=== PATIENT | male | born 1980 | race Hispanic/Latino ===

== ENCOUNTER 2024-07-20 09:35 | Inpatient (IN) | payer BC, OTHER ==
[~2024-07-20] VITALS: Ht 170.2 cm; Wt 87.2 kg
[~2024-07-20 09:35] MED LIST: ASPI-449 PO; ATOR40TA69 PO; LISI20TA24 PO; MECO10005 PO; METF-446 PO; METO-391 PO; PRAS10TA6 PO
[2024-07-20 10:58] LABS: BASOPHILS # (AUTO) 0.03 K/uL (0.00-0.20); BASOPHILS % (AUTO) 0.3 % (0.0-5.0); EOSINOPHILS % (AUTO) 0.9 % (0.0-8.0); HEMATOCRIT 37.2 % (42-54); LYMPHOCYTES # (AUTO) 0.5 K/uL (1.0-4.8); LYMPHOCYTES % (AUTO) 3.8 % (21.0-51.0); MEAN CORPUSCULAR HGB CONC 35.5 g/dL (32.0-36.0); MEAN CORPUSCULAR VOLUME 81.8 fL (79-99); MONOCYTES # (AUTO) 0.8 K/uL (0.1-1.0); NEUTROPHILS # (AUTO) 9.9 K/uL (1.8-7.7); NEUTROPHILS % (AUTO) 84.6 % (40.0-77.0); PLATELET COUNT (AUTO) 73 K/uL (130-400); RED BLOOD CELL COUNT(AUTO) 4.55 MIL/uL (4.50-6.20); RED CELL DISTRIBUTION WIDTH 11.3 % (11.0-15.5); WHITE BLOOD COUNT (AUTO) 11.7 K/uL (4.8-10.8)
[2024-07-20 11:25] LABS: ALBUMIN 2.8 g/dL (3.5-5.0); BILIRUBIN,DIRECT 4.7 mg/dL (0.0-0.3); BILIRUBIN,TOTAL 5.9 mg/dL (0.2-1.0); CREATININE 1.2 mg/dL (0.5-1.3); POTASSIUM 3.6 mmol/L (3.5-5.1); TOTAL PROTEIN, SERUM 6.5 g/dL (6.0-8.3)
--- NOTE | 2024-07-20 11:30 | ERN ---
General Chief Complaint: Fever Stated Complaint: FEVER Time Seen by MD: 10:00 Time Seen by Midlevel: 10:00 Source: patient History of Present Illness Initial Comments This is a 44-year-old male with a past medical history of type 2 diabetes and hypertension presenting for evaluation of intermittent fevers that have been ongoing for the last six days. Patient states his symptoms started after eating raw oysters. He has been taking Motrin 800 mg daily for his fever. Additionally he has noticed that his eyes have become yellow. He reports mild right upper quadrant abdominal pain with associated nausea but no vomiting. According to , patient is an alcoholic. She states that he drinks one bottle of Tequila a day. Allergies: Coded Allergies: No Known Allergies (Unverified Allergy, Unknown, 08/31/22) Home Meds Active Scripts Mecobalamin (B12 Active) 1,000 Mcg Tab.chew, 1000 MCG PO DAILY, #90 TAB.CHEW 3 Refills Prov:VAL FEILZ MD 09/02/22 Atorvastatin Calcium (LIPITOR) 40 Mg Tablet, 40 MG PO HS for 90 Days, #90 TAB 3 Refills Prov:VAL FELIZ MD 09/02/22 Prasugrel HCl (Effient) 10 Mg Tablet, 10 MG PO DAILY for 90 Days, #90 TAB 3 Refills Prov:VAL FELIZ MD 09/02/22 Aspirin (Adult Low Dose Aspirin EC) 81 Mg Tablet.dr, 81 MG PO DAILY for 100 Days, #100 TAB 3 Refills Prov:VAL FELIZ MD 09/02/22 Metoprolol Succinate (Metoprolol Succinate) 50 Mg Tab.er.24h, 50 MG PO DAILY, #90 TAB 3 Refills Prov:VAL FELIZ MD 09/02/22 Lisinopril (Lisinopril) 20 Mg Tablet, 20 MG PO DAILY, #90 TAB 3 Refills Prov:VAL FELIZ MD 09/02/22 Reported Medications Metformin HCl (Metformin HCl) 1,000 Mg Tablet, 1000 MG PO BID, TAB 09/01/22 Past Medical History Past Medical History: Diabetes-Type II, High Cholesterol, Hypertension, [place] Past Surgical History: Bariatric Surgery Social History Social History: ETOH ROS Dictation CONSTITUTIONAL: Negative except for HPI HEAD/FACE: Negative except for HPI EENT: Negative except for HPI RESPIRATORY: Negative except for HPI GASTROINTESTINAL/ABDOMINAL: Negative except for HPI GENITOURINARY: Negative except for HPI MUSCULOSKELETAL: Negative except for HPI INTEGUMENTARY: Negative except for HPI NEUROLOGICAL/PSYCH: Negative except for HPI HEMATOLOGIC/LYMPHATIC: Negative except for HPI All Systems Negative, Except as noted above. 13 point review of systems assessed and all negative except for above. Physical Exam Physical Exam Dictation Vital Signs reviewed General Appearance: Alert, oriented x 3, pale, ill-appearing Head and Face: non-traumatic. Eyes: PERRL, scleral icterus bilaterally Ears: Pinnas intact and no signs of trauma or erythema ear canals clear and no discharge TM no erythema Nose: No discharge, no bleeding. Oropharynx: Mouth normal, tongue pink, pharynx clear,no erythema, tonsils no exudates, no abscesses noted, mucous membrane moist Neck: Supple, non-tender, no thyromegaly, no masses, no JVD, no bruits Breast:Deferred Chest:No tenderness, no crepitus, no paradoxical movement, no retractions Lungs:Clear, well-ventilated, symmetric, no rales, no wheezing, no rhonchi, no stridor, good breath sounds bilaterally Heart: Regular rate, regular rhythm, no murmur, no gallops Vascular: no peripheral edema, Abdomen: Soft, positive bowel sounds, nondistended, no guarding, Right upper quadrant abdominal tenderness, no rebound, no masses no hepatomegaly, no splenomegaly, no Delong's sign, no hernias. Rectal: Deferred Genital: Deferred Neurological: Normal speech, motor function intact, sensory function intact Musculoskeletal: Neck nontender, full range of motion, back nontender, full range of motion, Extremities: nontender, full range of motion Skin: Color pink, dry, no turgor, no rash, no lacerations, no abrasions, no contusions. Lymphatic: Deferred Results Laboratory and Microbiology Lab and Micro Result Laboratory Tests Test 07/20/24 10:46 07/20/24 11:51 White Blood Count 11.7 K/uL (4.8-10.8) H Red Blood Count 4.55 MIL/uL (4.50-6.20) Hemoglobin 13.2 g/dL (14.0-18.0) L Hematocrit 37.2 % (42-54) L Mean Corpuscular Volume 81.8 fL (79-99) Mean Corpuscular Hemoglobin 29.0 pg (27.0-33.0) Mean Corpuscular Hemoglobin Concent 35.5 g/dL (32.0-36.0) Red Cell Distribution Width 11.3 % (11.0-15.5) Platelet Count 73 K/uL (130-400) L Mean Platelet Volume 12.3 fL (7.5-10.5) H Immature Granulocyte % (Auto) 3.4 % (0-1) H Neutrophils (%) (Auto) 84.6 % (40.0-77.0) H Lymphocytes (%) (Auto) 3.8 % (21.0-51.0) L Monocytes (%) (Auto) 7.0 % (3.0-13.0) Eosinophils (%) (Auto) 0.9 % (0.0-8.0) Basophils (%) (Auto) 0.3 % (0.0-5.0) Neutrophils # (Auto) 9.9 K/uL (1.8-7.7) H Lymphocytes # (Auto) 0.5 K/uL (1.0-4.8) L Monocytes # (Auto) 0.8 K/uL (0.1-1.0) Eosinophils # (Auto) 0.10 K/uL (0.00-0.70) Basophils # (Auto) 0.03 K/uL (0.00-0.20) Absolute Immature Granulocyte (auto 0.40 K/uL (0-1) Nucleated Red Blood Cells 0.0 % (0.0-0.19) White Cell Morphology Comment See comments Sodium Level 119 mmol/L (136-145) L Potassium Level 3.6 mmol/L (3.5-5.1) Chloride Level 83 mmol/L (101-111) *L Carbon Dioxide Level 27 mmol/L (21-32) Blood Urea Nitrogen 17 mg/dL (7-18) Creatinine 1.2 mg/dL (0.5-1.3) Glomerular Filtration Rate Calc 76 mL/min (>90) Random Glucose 248 mg/dL (70-105) H Lactic Acid Level 3.8 mmol/L (0.8-2.5) H Total Calcium 8.9 mg/dL (8.5-10.1) Total Bilirubin 5.9 mg/dL (0.2-1.0) H Direct Bilirubin 4.7 mg/dL (0.0-0.3) H Aspartate Amino Transf (AST/SGOT) 1184 U/L (10-37) *H Alanine Aminotransferase (ALT/SGPT) 1073 U/L (12-78) *H Alkaline Phosphatase 197 U/L (50-136) H Total Creatine Kinase 143 U/L (21-232) Troponin I High Sensitivity 17 ng/L (4-75) Total Protein 6.5 g/dL (6.0-8.3) Albumin 2.8 g/dL (3.5-5.0) L Triglycerides Level 229 mg/dL (30-200) H Lipase 2270 U/L (16-77) *H Influenza Type A Antigen Negative For Type A Influenza Type B Antigen Negative For Type B SARS-CoV-2 Antigen (Rapid) PRESUMPTIVE NEGATIVE Labs Reviewed?: Yes MDM MDM: Differential diagnosis: Sepsis, ascending cholangitis, pancreatitis, cholecystitis Rationale: Tests considered and ordered secondary to shared decision making include: Previous outside records reviewed: Old ER visits. Risk of complication and/or morbidity or mortality of patient management: None Medications-Per medication reconciliation Need for hospitalization: Patient does meet criteria for hospitalization. Need for emergency major/minor surgery: No There are no social concerns with this patient. Prescription drug management Prescriptions will include symptomatic care Patient's prior external medical records from other ER visits were reviewed by me as indicated. Prior testing and results from previous visits were reviewed. Prior tests were taken into account with medical decision making and resource utilization, independent historian/historians were used to obtain complete [facility] history. I independently interpreted the test that were performed, results were reviewed by me and considered findings on radiology if ordered. Medical management and examination interpretation discussions were had by me with other qualified healthcare professionals as indicated for the patient's care. ED Course Orders Procedure Category Date Status Time Cbc With Differential LAB 07/20/24 Complete 09:48 Blood Cult JAMES 07/20/24 In Process 09:48 Urinalysis Profile LAB 07/20/24 Complete 09:48 Culture Urine JAMES 07/20/24 In Process 09:56 0.9%Nacl 1000ml (Ns PHA 07/20/24 Complete 1000ml) 10:00 Creatine Kinase, Total LAB 07/20/24 Complete 09:56 Troponin I High LAB 07/20/24 Complete Sensitivity 09:56 Lactic Acid LAB 07/20/24 Complete 09:56 Basic Metabolic Panel LAB 07/20/24 Complete 09:56 Covid19 (Sars Antigen LAB 07/20/24 Complete Rapid) 09:56 Influenza Type A & B, LAB 07/20/24 Complete Rapid 09:56 Chest 1vw RAD 07/20/24 Resulted 09:56 Ketorolac PHA 07/20/24 Complete Tromethamine 15mg/Ml 10:00 Acetaminophen 500mg PHA 07/20/24 Complete Tab (Tylenol 500mg T 10:00 Hepatic Function Panel LAB 07/20/24 Complete 10:46 Lipase LAB 07/20/24 Complete 10:46 Zosyn 3.375gm+Ns 50ml PHA 07/20/24 Complete (Zosyn 3.375gm+Ns 11:30 Triglycerides LAB 07/20/24 Complete 11:24 Ct Abdomen/Pelvis CT 07/20/24 Resulted W/Contrast 11:26 Us Abdominal Ruq\Ltd US 07/20/24 Resulted 11:26 Morphine 4mg Syg PHA 07/20/24 Complete (Morphine 4mg Syg) 12:30 Acute Hepatitis Panel LAB 07/20/24 Complete 12:32 Hiv 1-2 W/Reflex To LAB 07/20/24 Complete Confirm 12:32 Prothrombin Time With LAB 07/20/24 Complete INR 12:41 Partial LAB 07/20/24 Complete Thromboplastin Time 12:41 Ammonia LAB 07/20/24 Complete 12:41 Acetaminophen LAB 07/20/24 Complete 12:41 Drug Screen Urine LAB 07/20/24 Complete 12:41 Alcohol, Blood LAB 07/20/24 Complete 12:41 Ferritin LAB 07/20/24 Complete 12:41 Ceruloplasmin LAB 07/20/24 In Process 12:41 Doxycycline 100mg+Ns PHA 07/20/24 In Process 250ml (Doxycycline 13:00 Stool Panel Gi By Pcr LAB 07/20/24 In Process 12:48 Stool Culture JAMES 07/20/24 Logged 12:48 C Difficile A/B LAB 07/20/24 Logged 12:48 Mitochondrial M2 Ab LAB 07/20/24 In Process IGG 12:48 Liver-Kidney LAB 07/20/24 In Process Microsome Ab 12:48 Shea Profile W/Reflex LAB 07/20/24 In Process 12:48 Comprehensive LAB 07/20/24 Complete Metabolic Panel 13:57 Gamma Glutamyl LAB 07/20/24 Complete Transferase 13:57 Magnesium LAB 07/20/24 Complete 13:57 Thyroid Stimulating LAB 07/20/24 Complete Hormone 13:57 Current Medications Medications (Trade) Dose Ordered Sig/Christina Route PRN Reason Start Time Stop Time Status Last Admin Dose Admin Acetaminophen (TYLenol 500MG TAB) 1,000 mg ONCE ONCE PO 07/20/24 10:00 07/20/24 10:20 DC 07/20/24 11:54 Ketorolac Tromethamine (toRADol) 15 mg ONCE ONCE IV 07/20/24 10:00 07/20/24 10:20 DC 07/20/24 11:55 Morphine Sulfate (morPHINE 4MG SYG) 4 mg ONCE ONCE IVP 07/20/24 12:30 07/20/24 12:23 DC Piperacillin Sod/ Tazobactam Sod (Zosyn 3.375gm+NS 50ml) 3.375 gm ONCE ONCE IV 07/20/24 11:30 07/20/24 11:34 DC 07/20/24 11:53 Sodium Chloride 2,586 ml @ 862 mls/hr ONCE ONCE IV 07/20/24 10:00 07/20/24 12:59 DC 07/20/24 11:54 Vital Signs Date Time Temp Pulse Resp B/P (MAP) Pulse Ox O2 Delivery O2 Flow Rate FiO2 07/20/24 11:54 99.1 07/20/24 09:37 99.1 127 20 105/72 100 Room Air 0 [address] [place] [address] [place] [address] IMAGING REPORT Signed PATIENT: MAGALI STERLING MR#: [id number] : 1980 SEX: M AGE: 44 LOCATION: ED ORDER 26 STATUS: REG ER [facility] REPORT#: [id number] SERVICE 25 REASON: RUQ abd pain/jaundice/fever ORDERING PHYSICIAN: EUFEMIA LAURENT PROCEDURE: ABDRUQLTD - US ABDOMINAL RUQ\LTD US ABDOMINAL RUQ\E\LTD HISTORY: Right upper abdominal pain COMPARISON: None TECHNIQUE: Right upper quadrant abdominal ultrasound study was performed. FINDINGS: Liver is enlarged with fatty changes measuring 18 cm. Pancreas not well seen limiting evaluation. Liver is echogenic consistent with liver parenchymal disease. Gallstones and sludge material are seen in the gallbladder. Common duct measures 4 mm. Gallbladder wall measures 5 mm. Right kidney measures 12 x 6 x 7 cm. No hydronephrosis is seen of the right kidney. IMPRESSION: 1. Gallstones and sludge material in the gallbladder. Borderline wall thickening is seen. No ductal dilatation is seen. 2. No hydronephrosis is seen. DICTATED BY: XOCHILT JEFFERS MD DATE: 07/20/24 1235 ELECTRONICALLY SIGNED BY: XOCHILT JEFFERS MD DATE: 07/20/[address] [address] IMAGING REPORT Signed PATIENT: MAGALI STERLING MR#: [id number] : 1980 SEX: M AGE: 44 LOCATION: EDHIP ORDER 112 STATUS: ADM IN REPORT#: [id number] SERVICE 1126 REASON: RUQ abd pain/jaundice ORDERING PHYSICIAN: EUFEMIA LAURENT PROCEDURE: ABD PEL W - CT ABDOMEN/PELVIS W/CONTRAST CT ABDOMEN/PELVIS W/CONTRAST HISTORY: Right upper quadrant pain COMPARISON: None TECHNIQUE: Multiple sequential axial images of the abdomen and pelvis were obtained from the dome of the diaphragm through symphysis pubis. Patient was given 75 cc of Omnipaque through intravenous route. Oral contrast was not given. FINDINGS: No pleural effusion is seen bilaterally. There is no evidence of parenchymal disease or pulmonary nodule of the visualized lower lungs. Degenerative changes of the thoracolumbar spine are present. The heart is not enlarged. Liver is enlarged with fatty changes measuring 20 cm. Post gastric bypass surgical changes are seen. Gallstones are seen in the gallbladder. Gallbladder wall is thick measuring 5.8 mm. There is fluid-filled small bowel loops and colon suggestive of enterocolitis. The liver, spleen, adrenal glands and pancreas are unremarkable. There is no evidence of hydronephrosis bilaterally. No evidence of renal stone is seen. Fecal material is seen in the colon. There are normal size retroperitoneal and mesenteric lymph nodes. No ascites is seen. No CT evidence of acute appendicitis is seen. Pelvic sidewalls are symmetric bilaterally. Bladder is moderately distended. IMPRESSION: 1. Gallstones are seen in the gallbladder with gallbladder wall thickening may be related to acute cholecystitis. CT was performed with one or more following dose reduction techniques: automated exposure control, adjustment of the mA and kv according to patient's size, or use of a iterative reconstruction technique. DICTATED BY: XOCHILT JEFFERS MD DATE: 07/20/24 1409 ELECTRONICALLY SIGNED BY: XOCHILT JEFFERS MD DATE: 07/20/24 1413 DX & DISP Disposition: Inpatient Decision to Admit Date: Jul 20, 2024 Decision to Admit Time: 12:59 Departure Impression: Primary Impression: Sepsis Additional Impressions: Elevated transaminase level, Pancreatitis, History of alcohol abuse, History of type 2 diabetes mellitus, History of hypertension, Hyponatremia, Leukocytosis Critical Time: 30 minutes (Critical Care Procedure NoteAuthorized and Performed by: meTotal critical care time: Approximately 36 minutesDue to a high pr obability of clinically significant, life threatening deterioration, the patient required my highest level of preparedness to intervene emergently and I personally spent this critical care time directly and personally managing the patient. This critical care time included obtaining a history; examining the patient; pulse oximetry; ordering and review of studies; arranging urgent tr eatment with development of a management plan; evaluation of patient's response to treatment; frequent reassessment; and, discussions with other providers.This critical care time was performed to assess and manage the high probability of imminent, life-threatening deterioration that could result in multi-organ failure. It was exclusive of separately billable procedures and treating other patients and teaching time.Please see MDM section and the rest of the note for further information on patient assessment and treatment.) Condition: Stable Referrals: BERNADETTE CHIU (PCP) I have reviewed the case, and I agree with, Diagnosis and Plan I performed the substantive portion of the visit. I have reviewed and personally made and approve the management plan that is documented in the note by myself or the MIAN. I acknowledge for responsibility for the patient's management plan. EUFEMIA LAURENT Jul 20, 2024 11:30 CARO RIOJAS DO Jul 21, 2024 07:57
[2024-07-20] MEDS: ZOSYN 3.375GM +NS 50ML IV ONE (11:53)
[2024-07-20] MEDS: 0.9%NACL 1000ML 2,586 ML IV ONE (11:54)
[2024-07-20] MEDS: acetaMINOPHEN 500 MG TABLET PO ONE (11:54)
[2024-07-20] MEDS: ketOROlac 15MG/ML VIAL (15MG/ML) IV ONE (11:55)
--- NOTE | 2024-07-20 12:05 | HMCIMG ---
CHEST 1VW HISTORY: Sepsis COMPARISON: 08/31/2022 FINDINGS: A frontal projection of the chest was obtained. No acute pulmonary infiltrates is seen. The heart is normal in size. Prominent interstitial markings are seen. No evidence of aortic calcification is seen. IMPRESSION: 1. No acute pulmonary infiltrate is seen.
[2024-07-20] MEDS ORDERED: morPHINE 4 MG SYG IVP ONE (12:30)
[2024-07-20 12:38] LABS: COVID19 (SARS ANTIGEN RAPID) PRESUMPTIVE NEGATIVE (NEGATIVE); INFLUENZA TYPE A Negative For Type A (NEGATIVE); INFLUENZA TYPE B Negative For Type B (NEGATIVE)
--- NOTE | 2024-07-20 12:38 | HMCIMG ---
US ABDOMINAL RUQ\E\LTD HISTORY: Right upper abdominal pain COMPARISON: None TECHNIQUE: Right upper quadrant abdominal ultrasound study was performed. FINDINGS: Liver is enlarged with fatty changes measuring 18 cm. Pancreas not well seen limiting evaluation. Liver is echogenic consistent with liver parenchymal disease. Gallstones and sludge material are seen in the gallbladder. Common duct measures 4 mm. Gallbladder wall measures 5 mm. Right kidney measures 12 x 6 x 7 cm. No hydronephrosis is seen of the right kidney. IMPRESSION: 1. Gallstones and sludge material in the gallbladder. Borderline wall thickening is seen. No ductal dilatation is seen. 2. No hydronephrosis is seen.
[2024-07-20] MEDS: DOXYCYCLINE 100MG+NS 250ML 250 ML IV SCH (13:15)
[2024-07-20] MEDS: CEFTRIAXONE 2GM VIAL IVPB SCH (13:16)
[2024-07-20] MEDS: 0.9%NACL 1000ML 1,000 ML IV SCH (13:16)
[2024-07-20] MEDS ORDERED: PHARMACY COMMUNICATION MISC PRN (13:30)
[2024-07-20] MEDS ORDERED: ondanSETRON 4MG INJ IVP PRN ×2 (13:30)
[2024-07-20] MEDS ORDERED: IOHEXOL 350 MG/ML 100ML INFUS..BTL IV ONE (13:40)
--- NOTE | 2024-07-20 13:40 | CONS ---
[facility] CONSULTATION NOTE Date Patient Seen: Jul 20, 2024 Time of Visit: 13:40 Supervising Physician: Dwaine Danielle MD Reason for Consultation: Critical Care Primary Care Physician: Lorenzo MORENO ([facility], [facility]) Outpatient Specialists: Inpatient Consults: JAZMINE, Dr Meza, Dr Andrews,- Flako Arndt MD, Dr Pierce, Dr Akins PROBLEM LIST: Severe Sepsis with MODS, POA suspect Vibrio vulnificus (From eating raw Oysters) Severe Transaminitis, POA Electrolyte imbalance (hyponatremia, hypochloremia,) Elevated lactate POA Hepatomegaly, POA Leukocytosis POA Thrombocytopenia, POA Hyperbilirubinemia POA Acute pancreatitis POA History of alcoholism, POA Cocaine abuse Essential Hypertension Type 2 diabetes mellitus Hyperlipidemia SC in 2011, 2 stents Overweight BMI 29.8 s/p bariatric surgery HPI: This is a 44-year-old male with a history of hyperlipidemia type 2 diabetes mellitus, previous SC in 2011, CAD status post two stent placements approximately two years ago, obesity post bariatric surgery 12 years ago, daily consumption of Tequila, and occasional cocaine use who presented to the emergency department for evaluation of abdominal pain with fever that started approximately six days ago. As per patient and they consumed raw oysters six days ago and later on started with the abdominal pain, he reports taking Pepto-Bismol in an attempt to help the with the pain; as per patient it did improve pain slightly. Patient reports abdominal pain has been on and off with nausea for six days now and fever started three days ago with chills. He did report one black stool the believes could has been Pepto-Bismol. On arrival to the emergency department patient was worked up for abdominal pain and laboratory pertinent findings found white count of 11.7 H&H 13.2/37.2 [place] [address] neutrophils of 84.6. Chemistry sodium was 119 chloride 83 carbon dioxide 27 BUN 17 creatinine 1.2 with a GFR of 76 glucose 248 mg/dL with a lactic acid of 3.8 total bili 5.9 direct bilirubin 4.7 AST was 1184 ALT 1073 alkaline phosphatase 197 lipase was 2270 albumin 2.8. UDS patient is positive for cocaine serum alcohol less than 3. Patient was negative for HIV nonreactive influenza a and B negative COVID-19 negative. Ablation PT 12.4 INR 1.168 PTT 29.6. On urine protein 20 urine glucose 200 urine bilirubin one RBCs 2-5 WBCs 11-25. 07/20/24 chest x-ray shows no acute pulmonary infiltrates seen. 07/20/24 ultrasound of right upper quadrant shows gallstones and sludge material in the gallbladder, borderline wall thickening is seen no ductal dilation is seen no hydronephrosis seen. On CT abdomen and pelvis gallstones are seen in the gallbladder with gallbladder wall thickening may be related to cholecystitis. Liver is enlarged fatty changes measuring 20 cm 07/20/24 MRCP shows gallstones in the gallbladder with gallbladder wall thickening common duct dilation suggestive of acute cholecystitis in the proper clinical setting no MRCP evidence of common duct stone is seen. Patient was admitted by the [facility] team and we are consulted for critical care management. On behalf of [facility] thank you for given us the opportunity to participate in the care of this patient. On assessment of patient he was awake alert and oriented x3 jaundice scleral icterus. He is hemodynamically stable afebrile heart rate in the 70s respiratory rate 16 and unlabored saturating 99%. Patient denies any nausea vomiting or abdominal pain at this time. He reports his last alcohol drink was about 3-4 days ago. No signs and symptoms of withdrawal at this time although CIWA protocol has already been ordered for possible withdrawal. He has been started on Rocephin and doxycycline IV antibiotics transaminitis seemed to have improved on repeat CMP. Ammonia was assessed less than 10. Hemoglobin A1c was 7.7 lactic acid trending down 3.4 total calcium 8.2 total bili 5.7, decreasing. PAST MEDICAL HX: Hypertension Type 2 diabetes mellitus Alcoholism SC in 2011 CAD status post stent placement three years ago Routine cocaine use PAST SURGICAL HX: Bariatric surgery: Gastric sleeve 12 years ago Heart catheterization with two stent placement SOCIAL HISTORY: Drinks alcohol daily : One small Tequila bottle daily Former smoker Reports cocaine use Coded Allergies: No Known Allergies (Unverified Allergy, Unknown, 08/31/22) REVIEW OF SYSTEMS: Const: [Yes for fever, fatigue, no weight changes] Eyes:[ no recent vision problems] ENT: [No congestion, ear pain, or sore throat] C/V: [no chest pain, palpitations or edema] Resp: [No cough, congestion, wheezing , or Shortness of breath] GI: Yes for abdominal pain, nausea, vomiting, no constipation, yes for black stool. : [No incontinence of or dysuria M/S: [No joint or pain swelling] Skin: [No rash] Neuro: [no headache, focal numbness, or weakness, dizziness or seizures] Psych: [no depression or anxiety] Heme: [no abnormal bruising or bleeding] Lymph: [no swollen glands] PHYSICAL EXAM: GENERAL: alert, weak, awake oriented x 3, multiple tattoos HEENT: EOMI, Sclera icteric, moist mucosa NECK: Supple, no JVD, trachea midline LUNGS: Clear breath sounds bilaterally. No wheezes HEART: Regular rate and rhythm. Normal S1 and S2, without murmurs ABD: Abdomen soft, nontender. Bowel sounds present EXT: No clubbing cyanosis or edema, NEURO: Alert and oriented to person, follows commands Vital Signs (last 8hr) Date Time Temp Pulse Resp B/P (MAP) Pulse Ox O2 Delivery O2 Flow Rate FiO2 07/20/24 13:21 99.1 88 16 98/66 99 Room Air* 0 21 07/20/24 11:54 99.1 07/20/24 09:37 99.1 127 20 105/72 100 Room Air 0 LABS: Hematology Labs: Test 07/20/24 10:46 Range/Units White Blood Count 11.7 H 4.8-10.8 K/uL Red Blood Count 4.55 4.50-6.20 MIL/uL Hemoglobin 13.2 L 14.0-18.0 g/dL Hematocrit 37.2 L 42-54 % Mean Corpuscular Volume 81.8 79-99 fL Mean Corpuscular Hemoglobin 29.0 27.0-33.0 pg Mean Corpuscular Hemoglobin Concent 35.5 32.0-36.0 g/dL Red Cell Distribution Width 11.3 11.0-15.5 % Platelet Count 73 L 130-400 K/uL Mean Platelet Volume 12.3 H 7.5-10.5 fL Immature Granulocyte % (Auto) 3.4 H 0-1 % Neutrophils (%) (Auto) 84.6 H 40.0-77.0 % Lymphocytes (%) (Auto) 3.8 L 21.0-51.0 % Monocytes (%) (Auto) 7.0 3.0-13.0 % Eosinophils (%) (Auto) 0.9 0.0-8.0 % Basophils (%) (Auto) 0.3 0.0-5.0 % Neutrophils # (Auto) 9.9 H 1.8-7.7 K/uL Lymphocytes # (Auto) 0.5 L 1.0-4.8 K/uL Monocytes # (Auto) 0.8 0.1-1.0 K/uL Eosinophils # (Auto) 0.10 0.00-0.70 K/uL Basophils # (Auto) 0.03 0.00-0.20 K/uL Absolute Immature Granulocyte (auto 0.40 0-1 K/uL Nucleated Red Blood Cells 0.0 0.0-0.19 % White Cell Morphology Comment See comments Chemistry Labs: Test 07/20/24 10:46 Range/Units Sodium Level 119 L 136-145 mmol/L Potassium Level 3.6 3.5-5.1 mmol/L Chloride Level 83 *L 101-111 mmol/L Carbon Dioxide Level 27 21-32 mmol/L Blood Urea Nitrogen 17 7-18 mg/dL Creatinine 1.2 0.5-1.3 mg/dL Glomerular Filtration Rate Calc 76 >90 mL/min Random Glucose 248 H 70-105 mg/dL Lactic Acid Level 3.8 H 0.8-2.5 mmol/L Total Calcium 8.9 8.5-10.1 mg/dL Total Bilirubin 5.9 H 0.2-1.0 mg/dL Direct Bilirubin 4.7 H 0.0-0.3 mg/dL Aspartate Amino Transf (AST/SGOT) 1184 *H 10-37 U/L Alanine Aminotransferase (ALT/SGPT) 1073 *H 12-78 U/L Alkaline Phosphatase 197 H 50-136 U/L Total Creatine Kinase 143 21-232 U/L Troponin I High Sensitivity 17 4-75 ng/L Total Protein 6.5 6.0-8.3 g/dL Albumin 2.8 L 3.5-5.0 g/dL Triglycerides Level 229 H 30-200 mg/dL Lipase 2270 *H 16-77 U/L DIAGNOSTICS / RADIOLOGY RESULTS: Signed PATIENT: MAGALI STERLING MR#: [id number] : 1980 SEX: M AGE: 44 LOCATION: [facility] ORDER 1020 STATUS: REG ER REPORT#: [id number] SERVICE 0956 REASON: sepsis ORDERING PHYSICIAN: CARO RIOJAS DO PROCEDURE: CXR1VW - CHEST 1VW CHEST 1VW HISTORY: Sepsis COMPARISON: 08/31/2022 FINDINGS: A frontal projection of the chest was obtained. No acute pulmonary infiltrates is seen. The heart is normal in size. Prominent interstitial markings are seen. No evidence of aortic calcification is seen. IMPRESSION: 1. No acute pulmonary infiltrate is seen. DICTATED BY: XOCHILT JEFFERS MD DATE: 07/20/241201 ELECTRONICALLY SIGNED BY: XOCHILT JEFFERS MD DATE: 07/20/241204 PATIENT: MAGALI STERLING MR#: [id number] : 1980 SEX: M AGE: 44 LOCATION: ED ORDER 1127 STATUS: REG [facility] REPORT#: [id number] SERVICE 1126 REASON: RUQ abd pain/jaundice/fever ORDERING PHYSICIAN: EUFEMIA LAURENT PROCEDURE: ABDRUQLTD - US ABDOMINAL RUQ\LTD US ABDOMINAL RUQ\E\LTD HISTORY: Right upper abdominal pain COMPARISON: None TECHNIQUE: Right upper quadrant abdominal ultrasound study was performed. FINDINGS: Liver is enlarged with fatty changes measuring 18 cm. Pancreas not well seen limiting evaluation. Liver is echogenic consistent with liver parenchymal disease. Gallstones and sludge material are seen in the gallbladder. Common duct measures 4 mm. Gallbladder wall measures 5 mm. Right kidney measures 12 x 6 x 7 cm. No hydronephrosis is seen of the right kidney. IMPRESSION: 1. Gallstones and sludge material in the gallbladder. Borderline wall thickening is seen. No ductal dilatation is seen. 2. No hydronephrosis is seen. DICTATED BY: XOCHILT JEFFERS MD DATE: 07/20/241234 ELECTRONICALLY SIGNED BY: XOCHILT JEFFERS MD DATE: 07/20/24 1238 [place] [address] [id number] IMAGING REPORT Signed PATIENT: MAGALI STERLING MR#: [id number] : 1980 SEX: M AGE: 44 LOCATION: [facility] ORDER 1127 STATUS: ADM IN REPORT#: [id number] SERVICE 1126 REASON: RUQ abd pain/jaundice ORDERING PHYSICIAN: EUFEMIA LAURENT PROCEDURE: ABD PEL W - CT ABDOMEN/PELVIS W/CONTRAST CT ABDOMEN/PELVIS W/CONTRAST HISTORY: Right upper quadrant pain COMPARISON: None TECHNIQUE: Multiple sequential axial images of the abdomen and pelvis were obtained from the dome of the diaphragm through symphysis pubis. Patient was given 75 cc of Omnipaque through intravenous route. Oral contrast was not given. FINDINGS: No pleural effusion is seen bilaterally. There is no evidence of parenchymal disease or pulmonary nodule of the visualized lower lungs. Degenerative changes of the thoracolumbar spine are present. The heart is not enlarged. Liver is enlarged with fatty changes measuring 20 cm. Post gastric bypass surgical changes are seen. Gallstones are seen in the gallbladder. Gallbladder wall is thick measuring 5.8 mm. There is fluid-filled small bowel loops and colon suggestive of enterocolitis. The liver, spleen, adrenal glands and pancreas are unremarkable. There is no evidence of hydronephrosis bilaterally. No evidence of renal stone is seen. Fecal material is seen in the colon. There are normal size retroperitoneal and mesenteric lymph nodes. No ascites is seen. No CT evidence of acute appendicitis is seen. Pelvic sidewalls are symmetric bilaterally. Bladder is moderately distended. IMPRESSION: 1. Gallstones are seen in the gallbladder with gallbladder wall thickening may be related to acute cholecystitis. CT was performed with one or more following dose reduction techniques: automated exposure control, adjustment of the mA and kv according to patient's size, or use of a iterative reconstruction technique. DICTATED BY: XOCHILT JEFFERS MD DATE: 07/20/24 1409 ELECTRONICALLY SIGNED BY: XOCHILT JEFFERS MD DATE: 07/20/24 1413 IMAGING REPORT Signed PATIENT: MAGALI STERLING MR#: [id number] : 1980 SEX: M AGE: 44 LOCATION: [facility]IP ORDER 1440 STATUS: ADM IN REPORT#: [id number] SERVICE 1439 REASON: abnormal lfts ORDERING PHYSICIAN: LYUBOV GARCIA PROCEDURE: MRCP WO - MRCP(ABDWO)CHOLANGIOPANCREATOG MRCP(ABDWO)CHOLANGIOPANCREATOG HISTORY: Abnormal liver function tests COMPARISON: CT from July 20, 2024 TECHNIQUE: MRI of the abdomen was performed utilizing multiple pulse sequences in axial, coronal and sagittal planes. Patient was not given contrast through intravenous route. MRCP was performed. FINDINGS: No pleural effusion is seen bilaterally. Liver is enlarged measuring 21 cm. Spleen is enlarged measuring 15 cm. Gallstones are seen in the gallbladder with sludge material. Gallbladder wall is thick measuring 5.8 mm. Findings are suspicious for acute cholecystitis in the proper clinical setting. Common duct is dilated measuring 8 mm. No MR evidence of common duct stone is seen. Adrenal glands and pancreas are unremarkable. Both kidneys are seen without hydronephrosis. IMPRESSION: 1. Gallstones in the gallbladder with gallbladder wall thickening and common duct dilatation suggested of acute cholecystitis in the proper clinical setting. No MRCP evidence of common duct stone is seen. DICTATED BY: XOCHILT JEFFERS MD DATE: 07/20/241640 ELECTRONICALLY SIGNED BY: XOCHILT JEFFERS MD DATE: 07/20/241644 PLAN CBC, CMP, Chest x-ray Blood cultures Check for flu and COVID Trend lactic acid Continue broad-spectrum antibiotic with Rocephin and add doxycycline for suspected Vibrio heart least two weeks Patient received crystalloids 30 mL/kilogram IV fluids in the ED Target map at 65 or greater Follow GI recommendations Educated patient should avoid eating raw or undercooked shellfish, particularly oysters. Patient verbalized understanding. Follow GI recommendations Follow ID recommendations NEURO: Minimize central acting medications as possible. Maintain fall precautions, adequate lighting during the day PULMONARY: Supplemental 02 as needed. Maintain aspiration precautions at all times CARDIOVASCULAR: Follow hemodynamics. Vital signs per facility protocol GI & NUTRITION: Continue with nutritional support. Continue stool softeners and laxatives as needed. KIDNEYS & ELECTROLYTES: Strict monitoring of intake, output and overall fluid balance. Avoid nephrotoxic medications to the extent possible. Medications to be dosed according to renal function. Monitor electrolytes and replace as needed ENDOCRINE: Maintain blood glucose between 100-180 at all times. Hypoglycemia protocol in place INFECTIOUS DISEASE: Trend temperature, WBC and procalcitonin level Follow cultures, deescalate antibiotics as soon as possible. Panculture if new onset fever ONCOLOGY/HEMATOLOGY/COAGULATION: Monitor for s/s of bleeding Monitor hemoglobin, coagulation studies as needed SKIN: Pressure ulcer prevention per facility protocol Specialty mattress ORTHO/REHAB: Continue PT/OT Prophylaxis: Continue GI and DVT prophylaxis Code Status: Full Resuscitation Disposition: TBD Other: Total patient care time exceeds 35 minutes excluding all procedures. HAILEE LYNN [facility] Jul 20, 2024 13:40
--- NOTE | 2024-07-20 14:13 | HMCIMG ---
CT ABDOMEN/PELVIS W/CONTRAST HISTORY: Right upper quadrant pain COMPARISON: None TECHNIQUE: Multiple sequential axial images of the abdomen and pelvis were obtained from the dome of the diaphragm through symphysis pubis. Patient was given 75 cc of Omnipaque through intravenous route. Oral contrast was not given. FINDINGS: No pleural effusion is seen bilaterally. There is no evidence of parenchymal disease or pulmonary nodule of the visualized lower lungs. Degenerative changes of the thoracolumbar spine are present. The heart is not enlarged. Liver is enlarged with fatty changes measuring 20 cm. Post gastric bypass surgical changes are seen. Gallstones are seen in the gallbladder. Gallbladder wall is thick measuring 5.8 mm. There is fluid-filled small bowel loops and colon suggestive of enterocolitis. The liver, spleen, adrenal glands and pancreas are unremarkable. There is no evidence of hydronephrosis bilaterally. No evidence of renal stone is seen. Fecal material is seen in the colon. There are normal size retroperitoneal and mesenteric lymph nodes. No ascites is seen. No CT evidence of acute appendicitis is seen. Pelvic sidewalls are symmetric bilaterally. Bladder is moderately distended. IMPRESSION: 1. Gallstones are seen in the gallbladder with gallbladder wall thickening may be related to acute cholecystitis. CT was performed with one or more following dose reduction techniques: automated exposure control, adjustment of the mA and kv according to patient's size, or use of a iterative reconstruction technique.
[2024-07-20] MEDS: PANTOPrazole 40 MG/VIAL IVP SCH (14:31)
[2024-07-20] MEDS: THIAMINE HCL 100 MG/ML 2ML VIAL IVP SCH (14:32)
--- NOTE | 2024-07-20 14:40 | HP ---
[facility] PH[facility] Date of Service: Jul 20, 2024 Time of Service: 13:41 HISTORY OF PRESENT ILLNESS: This is a 44-year-old male with a history of hypertension, hyperlipidemia, type 2 diabetes mellitus, chronic alcoholism and hx cocaine abuse and [place] in 2011, NSTEMI in 2021 s/p PCI, history of obesity post bariatric surgery who presented to the ED with a chief complaint of fever and shakiness for last 6 days. Patient states that he ate raw oysters on Halloween and the fever started after an hour. It is associated with generalized weakness, dizziness and lightheadedness and fatigue. He had a temperature of 104 F yesterday. He says that his ate cooked oysters and she did not have any complaints. Patient also complains of watery loose stools. Initially he had a black stools 4 days ago for 2 days. Patient was taking Pepto-Bismol which he stopped 4 days ago. His black stools have resolved now. Patient also states that he went to see his PCP Dr. Fonseca yesterday and was found to have leukocytosis and elevated liver enzymes in the 200's. Patient is reports having used cocaine 2 weeks ago and does not want his to know about his previous drug use. Patient denies nausea, vomiting, abdominal pain and chest pain. In the ED his vitals are temperature 99.1, pulse rate 127 which came down to 88, respiratory rate 16 blood pressure 98/66 and SpO2 99% on room air. His labs are remarkable for WBC 11.7, hemoglobin 13.2, platelet count 73, sodium 119, potassium 3.6, chloride 83, lactic acid 3.8, random glucose 248, total bilirubin 5.9, direct bilirubin 4.7, triglycerides 229, AST 1184, ALT 1073, ALP 197 and lipase 2270. Patient denies any significant abdominal pain, nausea or vomiting. U/S abdominal right upper quadrant show gallstones and sludge material in the gallbladder. Borderline wall thickening is seen. Chest x-ray is unremarkable. CT abdomen and pelvis shows gallstones with gallbladder wall thickening may be related to acute cholecystitis. Patient will be admitted for further evaluation and management severe acute hepatitis and severe hyponatremia. Patient was seen and evaluated in ED 4. Patient looks ill and jaundiced. His blood pressure at the moment is 101/66. No fever at the moment. He denies abdominal pain, chest pain, nausea or vomiting. He requested not to mention about his cocaine use in front of his . He is alert and oriented x3. REVIEW OF SYSTEMS CONSTITUTIONAL: Admits having fever. Last temp of 104 F at home yesterday with shakiness. Denies chills, or night sweats. No unintentional weight loss reported. NEUROLOGICAL: Denies headache, amaurosis fugax, motor weakness, sensory deficit, vertigo/spinning sensation, gait abnormalities, or tremors. ENT: No hearing loss, otalgia, otorrhea, rhinitis, rhinorrhea, hoarseness, or sore throat. CARDIOVASCULAR: Denies any exertional angina, dyspnea on exertion, orthopnea, paroxysmal nocturnal dyspnea, palpitations, life-threatening arrhythmias, claudication. PULMONARY: Denies any shortness of breath, cough, phlegm/sputum, hemoptysis, pleuritic chest pain. SLEEP: Denies morning headaches, daytime somnolence or napping. Denies difficulty falling asleep, staying asleep, waking from sleep. Denies knowledge of snoring. GASTROINTESTINAL: reports having diarrhea GENITOURINARY: Denies frequency, urgency, nocturia, hematuria or incontinence (Storage/Irritative symptoms.) Low urinary stream, straining to void, urinary intermittency or hesitancy, splitting of the voiding stream, terminal dribbling. ENDOCRINOLOGIC: Denies polyuria, polydipsia, polyphagia or heat/cold intolerances. HEMATOLOGIC: Denies thrombophilia/previous clots, or coagulopathy/bleeding disorders. ONCOLOGIC: Denies personal history of malignancy. DERMATOLOGIC: Denies rashes or pruritus. PSYCHIATRIC: Denies any suicidal or homicidal ideation. Denies hallucinations. PAST MEDICAL HISTORY: Hypertension Type 2 diabetes mellitus Hyperlipidemia Alcoholism NSTEMI in 2021 PR in June 2012 Routine cocaine use PAST SURGICAL HISTORY: Bariatric surgery/gastric sleeve 12 years ago Heart cath - 2 stents PAST SOCIAL HISTORY: States he drinks alcohol daily: 1 Tequila small bottle daily Former smoker States he uses cocaine; asked use1 week ago. FAMILY HISTORY: Father : Myocardial infarction in his 20s. Allergies: patient denies any known drug allergies medications: discussed with patient to try to obtain home medication list to be reconciled and updated Coded Allergies: No Known Allergies (Unverified Allergy, Unknown, 08/31/22) PHYSICAL EXAM GENERAL APPEARANCE: Patient appears ill and jaundiced. The patient is awake, alert, and oriented, in no acute cardiopulmonary distress. NEUROLOGICAL: Cranial nerves II-XII grossly intact. Motor is 5/5 in bilateral upper and lower extremities proximal to distal. No sensory deficits. HEENT: Positive for scleral icterus. Face is symmetric. Pupils are equal and reactive. Extraocular movements are intact. NECK: Supple. No JVD. No thyromegaly. No submental, submandibular, pre- /postauricular, occipital or supraclavicular lymphadenopathy. CHEST: Normal chest expansion. No Telemetry. LUNGS: Absence of any rales, rhonchi or any wheezing. CARDIOVASCULAR: Regular. S1 and S2 normal. No appreciable rubs, murmurs or gallops. ABDOMEN: Soft, nontender, and nondistended. There is no rebound, voluntary guarding, or rigidity. : Deferred. No Zambrano. EXTREMITIES: Non-edematous and not cyanotic. No clubbing. Good capillary refill. SKIN: No skin breakdown. Vital Sign (Last 24 Hours) 07/20/24 13:21 Temp 99.1 Pulse 88 Resp 16 B/P (MAP) 98/66 Pulse Ox 99 O2 Delivery Room Air* O2 Flow Rate 0 FiO2 21 LABS: Laboratory: Test 07/20/24 11:51 07/20/24 10:46 Range/Units Influenza Type A Antigen Negative For Type A NEGATIVE Influenza Type B Antigen Negative For Type B NEGATIVE SARS-CoV-2 Antigen (Rapid) PRESUMPTIVE NEGATIVE NEGATIVE White Blood Count 11.7 H 4.8-10.8 K/uL Red Blood Count 4.55 4.50-6.20 MIL/uL Hemoglobin 13.2 L 14.0-18.0 g/dL Hematocrit 37.2 L 42-54 % Mean Corpuscular Volume 81.8 79-99 fL Mean Corpuscular Hemoglobin 29.0 27.0-33.0 pg Mean Corpuscular Hemoglobin Concent 35.5 32.0-36.0 g/dL Red Cell Distribution Width 11.3 11.0-15.5 % Platelet Count 73 L 130-400 K/uL Mean Platelet Volume 12.3 H 7.5-10.5 fL Immature Granulocyte % (Auto) 3.4 H 0-1 % Neutrophils (%) (Auto) 84.6 H 40.0-77.0 % Lymphocytes (%) (Auto) 3.8 L 21.0-51.0 % Monocytes (%) (Auto) 7.0 3.0-13.0 % Eosinophils (%) (Auto) 0.9 0.0-8.0 % Basophils (%) (Auto) 0.3 0.0-5.0 % Neutrophils # (Auto) 9.9 H 1.8-7.7 K/uL Lymphocytes # (Auto) 0.5 L 1.0-4.8 K/uL Monocytes # (Auto) 0.8 0.1-1.0 K/uL Eosinophils # (Auto) 0.10 0.00-0.70 K/uL Basophils # (Auto) 0.03 0.00-0.20 K/uL Absolute Immature Granulocyte (auto 0.40 0-1 K/uL Nucleated Red Blood Cells 0.0 0.0-0.19 % White Cell Morphology Comment See comments Sodium Level 119 L 136-145 mmol/L Potassium Level 3.6 3.5-5.1 mmol/L Chloride Level 83 *L 101-111 mmol/L Carbon Dioxide Level 27 21-32 mmol/L Blood Urea Nitrogen 17 7-18 mg/dL Creatinine 1.2 0.5-1.3 mg/dL Glomerular Filtration Rate Calc 76 >90 mL/min Random Glucose 248 H 70-105 mg/dL Lactic Acid Level 3.8 H 0.8-2.5 mmol/L Total Calcium 8.9 8.5-10.1 mg/dL Total Bilirubin 5.9 H 0.2-1.0 mg/dL Direct Bilirubin 4.7 H 0.0-0.3 mg/dL Aspartate Amino Transf (AST/SGOT) 1184 *H 10-37 U/L Alanine Aminotransferase (ALT/SGPT) 1073 *H 12-78 U/L Alkaline Phosphatase 197 H 50-136 U/L Total Creatine Kinase 143 21-232 U/L Troponin I High Sensitivity 17 4-75 ng/L Total Protein 6.5 6.0-8.3 g/dL Albumin 2.8 L 3.5-5.0 g/dL Triglycerides Level 229 H 30-200 mg/dL Lipase 2270 *H 16-77 U/L Current Medications Medications (Trade) Dose Ordered Sig/Christina Route PRN Reason Start Time Stop Time Status Last Admin Dose Admin Ceftriaxone Sodium (Rocephin 2gm Inj) 2 gm Q24H IVPB 07/20/24 13:00 07/30/24 12:59 07/20/24 13:16 2 GM Chlordiazepoxide HCl (LIBrium 25 MG CAP) 25 mg Q6H PRN PO ALCOHOL WITHDRAWAL PROTOCOL 07/20/24 13:30 07/27/24 13:29 Doxycycline Hyclate 250 ml @ 125 mls/hr Q12H IV 07/20/24 13:00 07/30/24 12:59 07/20/24 13:15 125 MLS/HR Folic Acid (FOLic ACID 1 MG TABLET) 1 mg DAILY PO 07/21/24 09:00 07/23/24 09:01 Insulin Human Regular (humuLIN R 100 UNIT/ML 3ML) INSULIN SLIDING SCAL... ACHS SQ 07/20/24 16:30 08/19/24 16:29 Lorazepam (AtiVAN) 1 mg Q4H PRN IVP ALCOHOL WITHDRAWAL PROTOCOL 07/20/24 13:30 07/27/24 13:29 Ondansetron HCl (zoFRAN 4MG INJ) 4 mg Q6H PRN IVP NAUSEA/VOMITING 07/20/24 13:30 07/20/24 13:17 DC Ondansetron HCl (zoFRAN 4MG INJ) 4 mg Q6H PRN IVP NAUSEA/VOMITING 07/20/24 13:30 08/19/24 13:29 Pantoprazole Sodium (PROTonix 40MG INJ) 40 mg Q12H IVP 07/20/24 13:30 08/19/24 13:29 Pharmacy Profile Note (Pharmacy Communication) 1 each PROTOCOL PRN MISC ETOH Withdrawal Score changes 07/20/24 13:30 07/27/24 13:29 Sodium Chloride 1,000 ml @ 75 mls/hr [id number] IV 07/20/24 13:00 08/19/24 12:59 07/20/24 13:16 75 MLS/HR Thiamine HCl (Vitamin B-1) 200 mg Q24H IVP 07/20/24 13:00 07/24/24 13:00 DIAGNOSTICS / RADIOLOGY: [place] [id number] [address] IMAGING REPORT Signed PATIENT: MAGALI STERLING MR#: [id number] : 1980 SEX: M AGE: 44 LOCATION: [facility] ORDER 26 STATUS: ADM IN REPORT#: [id number] SERVICE 25 REASON: RUQ abd pain/jaundice ORDERING PHYSICIAN: EUFEMIA LAURENT PROCEDURE: ABD PEL W - CT ABDOMEN/PELVIS W/CONTRAST CT ABDOMEN/PELVIS W/CONTRAST HISTORY: Right upper quadrant pain COMPARISON: None TECHNIQUE: Multiple sequential axial images of the abdomen and pelvis were obtained from the dome of the diaphragm through symphysis pubis. Patient was given 75 cc of Omnipaque through intravenous route. Oral contrast was not given. FINDINGS: No pleural effusion is seen bilaterally. There is no evidence of parenchymal disease or pulmonary nodule of the visualized lower lungs. Degenerative changes of the thoracolumbar spine are present. The heart is not enlarged. Liver is enlarged with fatty changes measuring 20 cm. Post gastric bypass surgical changes are seen. Gallstones are seen in the gallbladder. Gallbladder wall is thick measuring 5.8 mm. There is fluid-filled small bowel loops and colon suggestive of enterocolitis. The liver, spleen, adrenal glands and pancreas are unremarkable. There is no evidence of hydronephrosis bilaterally. No evidence of renal stone is seen. Fecal material is seen in the colon. There are normal size retroperitoneal and mesenteric lymph nodes. No ascites is seen. No CT evidence of acute appendicitis is seen. Pelvic sidewalls are symmetric bilaterally. Bladder is moderately distended. IMPRESSION: 1. Gallstones are seen in the gallbladder with gallbladder wall thickening may be related to acute cholecystitis. CT was performed with one or more following dose reduction techniques: automated exposure control, adjustment of the mA and kv according to patient's size, or use of a iterative reconstruction technique. DICTATED BY: XOCHILT JEFFERS MD DATE: 07/20/24 1409 ELECTRONICALLY SIGNED BY: XOCHILT JEFFERS MD DATE: 07/20/24 14[address] [place] [address] IMAGING REPORT Signed PATIENT: MAGALI STERLING MR#: [id number] : 1980 SEX: M AGE: 44 LOCATION: ED ORDER 1020 STATUS: REG ER REPORT#: [id number] SERVICE 0956 REASON: sepsis ORDERING PHYSICIAN: CARO RIOJAS DO PROCEDURE: CXR1VW - CHEST 1VW CHEST 1VW HISTORY: Sepsis COMPARISON: 08/31/2022 FINDINGS: A frontal projection of the chest was obtained. No acute pulmonary infiltrates is seen. The heart is normal in size. Prominent interstitial markings are seen. No evidence of aortic calcification is seen. IMPRESSION: 1. No acute pulmonary infiltrate is seen. DICTATED BY: XOCHILT JEFFERS MD DATE: 07/20/24 120 ELECTRONICALLY SIGNED BY: XOCHILT JEFFERS MD DATE: 07/20/24 [address] [place] [address] IMAGING REPORT Signed PATIENT: MAGALI STERLING MR#: [id number] : 1980 SEX: M AGE: 44 LOCATION: ED ORDER 1127 STATUS: REG ER [facility] REPORT#: [id number] SERVICE 1126 REASON: RUQ abd pain/jaundice/fever ORDERING PHYSICIAN: EUFEMIA LAURENT PROCEDURE: ABDRUQLTD - US ABDOMINAL RUQ\LTD US ABDOMINAL RUQ\E\LTD HISTORY: Right upper abdominal pain COMPARISON: None TECHNIQUE: Right upper quadrant abdominal ultrasound study was performed. FINDINGS: Liver is enlarged with fatty changes measuring 18 cm. Pancreas not well seen limiting evaluation. Liver is echogenic consistent with liver parenchymal disease. Gallstones and sludge material are seen in the gallbladder. Common duct measures 4 mm. Gallbladder wall measures 5 mm. Right kidney measures 12 x 6 x 7 cm. No hydronephrosis is seen of the right kidney. IMPRESSION: 1. Gallstones and sludge material in the gallbladder. Borderline wall thickening is seen. No ductal dilatation is seen. 2. No hydronephrosis is seen. DICTATED BY: XOCHILT JEFFERS MD DATE: 07/20/24 1235 ELECTRONICALLY SIGNED BY: XOCHILT JEFFERS MD DATE: 07/20/24 5155 ASSESSMENT: Severe acute hepatitis POA r/o Vibriosis, POA Acute cholecystitis rule out Severe hyponatremia, hypochloremia POA Sepsis, POA, 2/2 acute cholecystitis vs infectious Gastroenteritis, POA Concern for ischemic Hepatitis, POA Elevated lactate POA Leukocytosis POA Thrombocytopenia, POA Hyperbilirubinemia POA Acute pancreatitis POA Hx of Chronic Alcoholism, POA Cocaine abuse Hypertension Type 2 diabetes mellitus Hyperlipidemia Hx of NSTEMI, in 2021, w/ Hx of PCI, POA Hx of Dual Antiplatelet therapy as outpatient, POA Overweight BMI 29.8 s/p bariatric surgery PLAN: Will admit the patient in PCCU. Severe acute hepatitis POA r/o Acute vs Chronic Cholecystitis, POA r/o Vibriosis, POA Infectious gastroenteritis, POA Patient will remain NPO. We will start the patient on NS 1000 @ 75 mL/hour, patient received sepsis bolus of IV fluids in ER AST 1184 and ALT 1073, lipase also significantly elevated We will obtain hepatitis panel and HIV tests. We will start on Rocephin 2 g IV and doxycycline 250 mL @125 mL/hour We will obtain stool panel, stool culture and blood culture and we will follow the results. Will follow PT/APTT/INR results. Ferritin level 671. Check for autoimmune disease (KASSIE, ceruloplasmin, antimitochondrial antibody). Will Obtain GI and Infectious Disease consult and we will follow their recommendations. Critical Care consult obtained and we will follow their recommendations Obtain HIDA scan to r/o cholecystitis, patient currently has no abdominal pain and no nausea and vomiting Electrolyte imbalance; severe hyponatremia, hypochloremia POA Sodium level is 119 and Cl 83. Nephrology consult obtained and pending Fluid restriction 1.5 L a day. Continue NS 1000 @75 ml/hr. Elevated lactate POA Lactic acid is 3.8. Will repeat lactic acid levels. Leukocytosis POA Thrombocytopenia, POA WBC 11.7 and platelet count 73. Hyperbilirubinemia POA Total bilirubin 5.9 and direct bilirubin 4.7. Hx Chronic alcoholism We will start thiamine HCl 200 mg and folic acid 1 mg p.o. P.r.n. Librium 25 mg and Ativan 1 mg PRN added for alcohol withdrawal symptoms. Hypertension Hx of CAD with prior Hx of NSTEMI in 2021 His recent blood pressure is 101/66 mmHg. Hold Anti Hypertensives as blood pressure remains soft Hold statins we will reconcile home meds once available, restart aspirin if no signs of bleeding and no procedures planned Type 2 diabetes mellitus Monitor glucose a.c. and HS. Follow insulin sliding scale. Hyperglycemia and hypoglycemia protocol Please reconcile home medications and update. We will obtain labs TSH, A1c, serum and urine osmolality and will follow the results. Continue GI prophylaxis and apply SCDs for DVT prophylaxis. P.r.n. medications for fever, nausea, vomiting and pain are added. ADVANCED CARE PLANNING 1. Which of the following were discussed? Hospice Care - No Therapeutic options - Yes Advance Directives - No Other discussions -patient wishes to remain a full code at this time Critical care minutes: 45 minutes 2. Discussed with who? Patient 3. Voluntary nature of this service was explained to the patient? Yes 4. Amount of time spent - 25 minutes__ 5. Reviewed by Physician? (if this service was performed by NPP) Yes ATTESTATION BY PHYSICIAN I have seen and examined the patient. I reviewed the documentation, medical decision making, and treatment plan as noted by the resident provider above. I agree with the findings and plan of care. ELIGIO Ortega MD, MD Jul 20, 2024 14:40 ELY HUTCHINSON MD Jul 21, 2024 09:56
--- NOTE | 2024-07-20 14:46 | CONS ---
GASTROENTEROLOGY CONSULTATION NOTE Date of Consultation: Jul 20, 2024 Time of Consultation: 14:46 History of Present Illness: This is a 44-year-old male with past medical history of hypertension, hyperlipidemia, type 2 diabetes, alcoholism, cocaine abuse and [place] in 2011 with 2 stents, history of obesity status post bariatric surgery who presented due to fever and shakiness ongoing for 6 days. Patient does report that he ate well oysters on Halloween and since then his fever has started. Patient reports loose watery stools and melena. He does report taking Pepto-Bismol. He was found to have elevated LFTs with a total bilirubin of 5.9, AST 1184, ALT 1073 and alkaline phos of 187. Lipase of 20-70. Albumin 2.8 and sodium of 119. Hemoglobin 13.2 with a platelet count of 73 and INR 1.16. Imaging revealing gallstones and concern for acute cholecystitis. MRCP was done that revealed gallstones with CBD dilation and concern for acute cholecystitis. No choledocholithiasis. He is pending acute hepatitis panel. Review of Systems: CONSTITUTIONAL: No malaise or change in sensation of wellbeing. ENMT: No rhinorrhea, otorrhea, sinus pain, ear ache. CARDIOVASCULAR: No angina, palpitations, orthopnea or paroxysmal dyspnea. RESPIRATORY: No SOB. GASTROINTESTINAL: No abdominal pain, nausea, vomiting, diarrhea, hematemesis, melena or change in the patient's habitual bowel movements consistency/number. GENITOURINARY: No dysuria, hematuria or change in bladder continence. MUSCULOSKELETAL: No new muscle pain or decrease in muscular strength. No new joint swelling, redness or tenderness. SKIN: No new rash. Past Medical History: [ ] Past Surgical History: [ ] Past Social History: [ ] Family History: [ ] Coded Allergies: No Known Allergies (Unverified Allergy, Unknown, 08/31/22) Physical Exam: GEN: Awake, alert, oriented in person, time and place, and in no acute distress. HEENT: No sinus tenderness. Tympanic membranes were not examined. No rhinorrhea. Oral pharyngeal mucosa is pink, moist and within normal limits. Neck is supple with no cervical lymphadenopathy, thyromegaly or JVD. CHEST: Inspection, palpation and percussion of the chest were unremarkable. Lung auscultation revealed normal breath sounds bilaterally. CARDIAC: PMI is within normal limits. Heart sounds are regular. Normal S1, S2. No gallop or murmur. ABD: Soft, non-tender and not distended. No peritoneal signs on palpation. No organomegaly. Normal bowel sounds. EXT: No cyanosis or clubbing. No edema. SKIN: Intact. No rashes. JOINTS: No evidence of synovitis or acute arthritis. NEURO: Alert and oriented to name, place and person. Cranial nerve examination is unremarkable. No focal motor deficits. Normal speech. Gait is normal. Strength is normal. Vital Sign (Last 24 Hours) 07/20/24 14:13 Temp 98.8 Pulse 84 Resp 18 B/P (MAP) 100/70 Pulse Ox 100 O2 Delivery Room Air* O2 Flow Rate 0 FiO2 21 Laboratory: [ ] Laboratory: Test 07/20/24 11:51 07/20/24 10:46 Range/Units Influenza Type A Antigen Negative For Type A NEGATIVE Influenza Type B Antigen Negative For Type B NEGATIVE SARS-CoV-2 Antigen (Rapid) PRESUMPTIVE NEGATIVE NEGATIVE White Blood Count 11.7 H 4.8-10.8 K/uL Red Blood Count 4.55 4.50-6.20 MIL/uL Hemoglobin 13.2 L 14.0-18.0 g/dL Hematocrit 37.2 L 42-54 % Mean Corpuscular Volume 81.8 79-99 fL Mean Corpuscular Hemoglobin 29.0 27.0-33.0 pg Mean Corpuscular Hemoglobin Concent 35.5 32.0-36.0 g/dL Red Cell Distribution Width 11.3 11.0-15.5 % Platelet Count 73 L 130-400 K/uL Mean Platelet Volume 12.3 H 7.5-10.5 fL Immature Granulocyte % (Auto) 3.4 H 0-1 % Neutrophils (%) (Auto) 84.6 H 40.0-77.0 % Lymphocytes (%) (Auto) 3.8 L 21.0-51.0 % Monocytes (%) (Auto) 7.0 3.0-13.0 % Eosinophils (%) (Auto) 0.9 0.0-8.0 % Basophils (%) (Auto) 0.3 0.0-5.0 % Neutrophils # (Auto) 9.9 H 1.8-7.7 K/uL Lymphocytes # (Auto) 0.5 L 1.0-4.8 K/uL Monocytes # (Auto) 0.8 0.1-1.0 K/uL Eosinophils # (Auto) 0.10 0.00-0.70 K/uL Basophils # (Auto) 0.03 0.00-0.20 K/uL Absolute Immature Granulocyte (auto 0.40 0-1 K/uL Nucleated Red Blood Cells 0.0 0.0-0.19 % White Cell Morphology Comment See comments Sodium Level 119 L 136-145 mmol/L Potassium Level 3.6 3.5-5.1 mmol/L Chloride Level 83 *L 101-111 mmol/L Carbon Dioxide Level 27 21-32 mmol/L Blood Urea Nitrogen 17 7-18 mg/dL Creatinine 1.2 0.5-1.3 mg/dL Glomerular Filtration Rate Calc 76 >90 mL/min Random Glucose 248 H 70-105 mg/dL Lactic Acid Level 3.8 H 0.8-2.5 mmol/L Total Calcium 8.9 8.5-10.1 mg/dL Total Bilirubin 5.9 H 0.2-1.0 mg/dL Direct Bilirubin 4.7 H 0.0-0.3 mg/dL Aspartate Amino Transf (AST/SGOT) 1184 *H 10-37 U/L Alanine Aminotransferase (ALT/SGPT) 1073 *H 12-78 U/L Alkaline Phosphatase 197 H 50-136 U/L Total Creatine Kinase 143 21-232 U/L Troponin I High Sensitivity 17 4-75 ng/L Total Protein 6.5 6.0-8.3 g/dL Albumin 2.8 L 3.5-5.0 g/dL Triglycerides Level 229 H 30-200 mg/dL Lipase 2270 *H 16-77 U/L Current Medications Medications (Trade) Dose Ordered Sig/Christina Route PRN Reason Start Time Stop Time Status Last Admin Dose Admin Ceftriaxone Sodium (Rocephin 2gm Inj) 2 gm Q24H IVPB 07/20/24 13:00 07/30/24 12:59 07/20/24 13:16 2 GM Chlordiazepoxide HCl (LIBrium 25 MG CAP) 25 mg Q6H PRN PO ALCOHOL WITHDRAWAL PROTOCOL 07/20/24 13:30 07/27/24 13:29 Doxycycline Hyclate 250 ml @ 125 mls/hr Q12H IV 07/20/24 13:00 07/30/24 12:59 07/20/24 13:15 125 MLS/HR Folic Acid (FOLic ACID 1 MG TABLET) 1 mg DAILY PO 07/21/24 09:00 07/23/24 09:01 Insulin Human Regular (humuLIN R 100 UNIT/ML 3ML) INSULIN SLIDING SCAL... ACHS SQ 07/20/24 16:30 08/19/24 16:29 Lorazepam (AtiVAN) 1 mg Q4H PRN IVP ALCOHOL WITHDRAWAL PROTOCOL 07/20/24 13:30 07/27/24 13:29 Ondansetron HCl (zoFRAN 4MG INJ) 4 mg Q6H PRN IVP NAUSEA/VOMITING 07/20/24 13:30 07/20/24 13:17 DC Ondansetron HCl (zoFRAN 4MG INJ) 4 mg Q6H PRN IVP NAUSEA/VOMITING 07/20/24 13:30 08/19/24 13:29 Pantoprazole Sodium (PROTonix 40MG INJ) 40 mg Q12H IVP 07/20/24 13:30 08/19/24 13:29 07/20/24 14:31 40 MG Pharmacy Profile Note (Pharmacy Communication) 1 each PROTOCOL PRN MISC ETOH Withdrawal Score changes 07/20/24 13:30 07/27/24 13:29 Sodium Chloride 1,000 ml @ 75 mls/hr [id number] IV 07/20/24 13:00 08/19/24 12:59 07/20/24 13:16 75 MLS/HR Thiamine HCl (Vitamin B-1) 200 mg Q24H IVP 07/20/24 13:00 07/24/24 13:00 07/20/24 14:32 200 MG Diagnostics / Radiology: [COPY/PASTE HERE IF NO REPORTS PLEASE DELETE SECTION] Assessment: Abnormal lfts, likely related to ischemic hepatopathy from cocaine use vs viral process Thrombocytopenia, concerning for cirrhosis Splenomegaly Hyponatremia Plan: EUS in AM to r/o choledocholithiasis Will obtain liver serologies Await acute hep panel [address] ENGINEER FREIGHT Jul 20, 2024 14:46
[2024-07-20 14:57] LABS: INR 1.16 (0.85-1.15); PROTHROMBIN TIME 12.4 SEC (9.6-11.6)
[2024-07-20 14:58] LABS: PARTIAL THROMBOPLASTIN TIME 29.6 SEC (26.3-35.5)
[2024-07-20 15:20] LABS: ACETAMINOPHEN 5 mcg/mL (10-29); ALBUMIN 2.4 g/dL (3.5-5.0); ALCOHOL, BLOOD < 3 mg/dL (0-10); BILIRUBIN,TOTAL 5.7 mg/dL (0.2-1.0); CARBON DIOXIDE 30 mmol/L (21-32); CREATININE 1.3 mg/dL (0.5-1.3); FERRITIN 671 ng/mL (30-400); GAMMA GLUTAMYL TRANSFERASE 381 U/L (5-85); GLOMERULAR FILTR. RATE CALC 69 mL/min (>90); GLUCOSE,RANDOM 291 mg/dL (70-105); POTASSIUM 3.8 mmol/L (3.5-5.1); SODIUM SERUM 121 mmol/L (136-145); THYROID STIMULATING HORMONE 0.43 uIU/mL (0.36-3.74); TOTAL PROTEIN, SERUM 5.6 g/dL (6.0-8.3); UREA NITROGEN, BLOOD 17 mg/dL (7-18)
[2024-07-20 15:22] LABS: AMMONIA < 10 umol/L (11-32)
[2024-07-20 15:24] LABS: ALANINE AMINOTRANSFERASE 961 U/L (12-78); ASPARTATE AMINOTRANSFERASE 989 U/L (10-37); CHLORIDE 84 mmol/L (101-111)
[2024-07-20 15:29] LABS: HIV 1&2 ANTIBODY Non-Reactive (Negative)
[2024-07-20 15:30] LABS: APPEARANCE,URINE CLEAR (CLEAR); BILIRUBIN,URINE 1 mg/dL (NEGATIVE); COLOR,URINE YELLOW (YELLOW); GLUCOSE, URINE (UA) 200 mg/dL (NEGATIVE); KETONES,URINE NEGATIVE (NEGATIVE); LEUKOCYTE ESTERASE ,URINE NEGATIVE Leu/uL (NEGATIVE); NITRATE,URINE NEGATIVE (NEGATIVE); OCCULT BLOOD,URINE NEGATIVE (NEGATIVE); PH,URINE 5.5 (5.0-8.0); PROTEIN,URINE 20 mg/dL (NEGATIVE); UROBILINOGEN,URINE 0.2 mg/dL (0.2-1.0)
[2024-07-20 15:30] LABS: HIV-1 p24 Antigen Non-Reactive (Negative)
[2024-07-20 15:37] LABS: AMPHET/METH SCREEN,URINE NEGATIVE (NEGATIVE); BARBITURATE SCREEN, URINE NEGATIVE (NEGATIVE); BENZODIAZEPINES SCREEN,URINE NEGATIVE (NEGATIVE); CANNABINOID SCREEN,URINE NEGATIVE (NEGATIVE); COCAINE SCREEN,URINE POSITIVE (NEGATIVE); OPIATE SCREEN,URINE NEGATIVE (NEGATIVE); PHENCYCLIDINE SCREEN,URINE NEGATIVE (NEGATIVE)
--- NOTE | 2024-07-20 15:38 | EKG ---
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
[2024-07-20 15:43] LABS: ADD UA MICROSCOPIC YES
[2024-07-20 15:44] LABS: BACTERIA,URINE RARE /HPF (None Seen); MUCUS,URINE RARE LPF (None Seen); SQUAMOUS EPITHELIAL CELL,UR RARE /HPF (0-2)
[2024-07-20 16:30] LABS: HEMOGLOBIN A1C 7.7 % (4.0-6.0)
--- NOTE | 2024-07-20 16:45 | HMCIMG ---
MRCP(ABDWO)CHOLANGIOPANCREATOG HISTORY: Abnormal liver function tests COMPARISON: CT from July 20, 2024 TECHNIQUE: MRI of the abdomen was performed utilizing multiple pulse sequences in axial, coronal and sagittal planes. Patient was not given contrast through intravenous route. MRCP was performed. FINDINGS: No pleural effusion is seen bilaterally. Liver is enlarged measuring 21 cm. Spleen is enlarged measuring 15 cm. Gallstones are seen in the gallbladder with sludge material. Gallbladder wall is thick measuring 5.8 mm. Findings are suspicious for acute cholecystitis in the proper clinical setting. Common duct is dilated measuring 8 mm. No MR evidence of common duct stone is seen. Adrenal glands and pancreas are unremarkable. Both kidneys are seen without hydronephrosis. IMPRESSION: 1. Gallstones in the gallbladder with gallbladder wall thickening and common duct dilatation suggested of acute cholecystitis in the proper clinical setting. No MRCP evidence of common duct stone is seen.
--- NOTE | 2024-07-20 20:15 | CONS ---
REFERRING PHYSICIAN: . REASON FOR CONSULTATION: Renal failure. HISTORY OF PRESENT ILLNESS: A 44-year-old male with a history of hypertension, diabetes mellitus, history of alcohol use. He has a history of coronary artery disease, status post coronary catheterization in the past. He presented to the hospital with complaints of significant nausea and vomiting. The patient states he had been eating raw oysters. The patient was having underlying fevers and he presented to the emergency room. In ER, the patient was found to have significant electrolyte abnormalities including hyponatremia as well as elevated liver function tests and the patient is being seen in consultation for all the above. I did discuss the case in detail with the primary team. PAST MEDICAL HISTORY: Diabetes mellitus, hypertension, coronary artery disease. PAST SURGICAL HISTORY: Heart catheterization, gastric bypass surgery. SOCIAL HISTORY: He has a history of substance abuse. FAMILY HISTORY: There is no renal disease in the family. ALLERGIES: There are no allergies. MEDICATIONS: Noted. REVIEW OF SYSTEMS: GENERAL: He is feeling weak and tired. HEENT: No change in vision. No change in hearing. CARDIOVASCULAR: No current chest pain or palpitations. PULMONARY: No shortness of breath. GASTROINTESTINAL: As described above. MUSCULOSKELETAL: Complains of weakness. NEUROLOGIC: No seizures or focal deficits. PSYCHIATRIC: No history of hallucinations or psychosis. ENDOCRINE: Diabetes mellitus. No history of thyroid disease. HEME: History of anemia. PHYSICAL EXAMINATION: VITAL SIGNS: Blood pressure 100/70, pulse 80s. GENERAL: He is a chronically ill male, lying in bed on the medical floor. HEENT: Head is atraumatic. Pupils are equal, roving to light. Oropharynx is without exudate. Nares are clear. NECK: There is no JVP. There is no thyromegaly, no mass. CARDIOVASCULAR: Regular. There is no S3, S4 gallop. LUNGS: Coarse with equal thoracic movement. ABDOMEN: Soft, nondistended, nontender. EXTREMITIES: Reveal no clubbing, no cyanosis. NEUROLOGICAL: He is awake. He is alert. SKIN: Reveals no rash or nodules. BACK: There is no CVA tenderness. There is no back deformity. LABORATORY DATA: Sodium 121, potassium 3.8, glucose is 291, bilirubin is 5.7, AST is 989. Hemoglobin 13, hematocrit 37. Urine is positive for cocaine. IMPRESSION: 1. Renal dysfunction. 2. Hyponatremia. 3. Elevated liver function tests. 4. Substance abuse. PLAN: I did discuss the case in detail with the primary team. The patient will continue with normal saline. Serum sodium has somewhat improved. The patient with significantly elevated liver function tests. He has a history of known alcohol use. Would recommend checking a hepatitis A for completeness. We will continue to follow the patient closely. The patient's electrolytes have all been aggressively repleted. All labs can be repeated in the morning. We will send off urine for electrolytes for completeness and we will continue to follow closely. The patient with multiple questions, all of which were answered. TID: [id number] RECEIPT: [id number]
[2024-07-20 20:18] LABS: ALBUMIN 2.2 g/dL (3.5-5.0); BILIRUBIN,TOTAL 4.6 mg/dL (0.2-1.0); CREATININE 1.1 mg/dL (0.5-1.3); POTASSIUM 3.2 mmol/L (3.5-5.1); TOTAL PROTEIN, SERUM 5.5 g/dL (6.0-8.3)
[2024-07-20] MEDS: INSULIN humuLIN R 100 UNIT/ML 3ML SQ SCH (22:08)
[2024-07-20] MEDS: LORazepam 2 MG/ML 1 ML VIAL IVP PRN (23:45)
[2024-07-20 23:51] LABS: CREATININE,URINE RANDOM 101.01 mg/dL (30-135)
[2024-07-20 23:55] LABS: SODIUM,URINE RANDOM < 13 mmol/l (40-220)
[2024-07-21] VITALS (16 sets, daily range): BP systolic 102–122; BP diastolic 60–76; PULSE 67–85; RESP 15–20; TEMP 97.9–99.7; O2SAT 96–97
[2024-07-21 01:23] LABS: POTASSIUM 3.3 mmol/L (3.5-5.1)
[2024-07-21 01:33] LABS: ALBUMIN 2.3 g/dL (3.5-5.0); BILIRUBIN,TOTAL 4.4 mg/dL (0.2-1.0); TOTAL PROTEIN, SERUM 5.7 g/dL (6.0-8.3)
[2024-07-21 04:32] LABS: HEPATITIS A IGM ANTIBODY Non-Reactive (Nonreactive); HEPATITIS B CORE IGM ANTIBODY Non-Reactive (Negative); HEPATITIS B SURFACE ANTIGEN Non-Reactive (Nonreactive); HEPATITIS C ANTIBODY Non-Reactive (Nonreactive)
[2024-07-21 07:09] LABS: BASOPHILS # (AUTO) 0.04 K/uL (0.00-0.20); BASOPHILS % (AUTO) 0.6 % (0.0-5.0); EOSINOPHILS # (AUTO) 0.09 K/uL (0.00-0.70); EOSINOPHILS % (AUTO) 1.2 % (0.0-8.0); HEMATOCRIT 36.3 % (42-54); IMMATURE GRANULOCYTE ABSOLUTE 0.05 K/uL (0-1); LYMPHOCYTES # (AUTO) 1.7 K/uL (1.0-4.8); MEAN CORPUSCULAR HEMOGLOBIN 29.1 pg (27.0-33.0); MEAN CORPUSCULAR HGB CONC 34.4 g/dL (32.0-36.0); MEAN CORPUSCULAR VOLUME 84.6 fL (79-99); MONOCYTES % (AUTO) 13.4 % (3.0-13.0); NEUTROPHILS # (AUTO) 4.4 K/uL (1.8-7.7); NEUTROPHILS % (AUTO) 61.1 % (40.0-77.0); PLATELET COUNT (AUTO) 82 K/uL (130-400); RED BLOOD CELL COUNT(AUTO) 4.29 MIL/uL (4.50-6.20); RED CELL DISTRIBUTION WIDTH 11.2 % (11.0-15.5); WHITE BLOOD COUNT (AUTO) 7.3 K/uL (4.8-10.8)
[2024-07-21] MEDS: FOLic ACID 1 MG TABLET PO SCH (08:10)
[2024-07-21] MEDS ORDERED: proPOFol 10 MG/ML 20ML VIAL IV ONE ×2 (10:33→10:46)
[2024-07-21] MEDS ORDERED: LIDOCAINE HCL 1% 20 ML VIAL ONE (10:35)
--- NOTE | 2024-07-21 11:08 | PN ---
[facility] PROGRESS NOTE Date Patient Seen: Jul 21, 2024 Time of Visit: 11:08 Supervising Physician: Leroy Loera MD Primary Care Physician: Lorenzo MORENO ([facility], [facility]) Outpatient Specialists: Inpatient Consults: JAZMINE, Dr Meza, Dr Andrews,- Flako Arndt MD, Dr Pierce, Dr Akins PROBLEM LIST: Severe Sepsis with MODS, POA suspect Vibrio vulnificus (From eating raw Oysters) Severe Transaminitis, POA Electrolyte imbalance (hyponatremia, hypochloremia,) Elevated lactate POA Hepatomegaly, POA Leukocytosis POA Thrombocytopenia, POA Hyperbilirubinemia POA Acute pancreatitis POA Acute Cholecystitis without choledocholithiasis, POA History of alcoholism, POA Cocaine abuse Essential Hypertension Type 2 diabetes mellitus Hyperlipidemia OR in 2011, 2 stents Overweight BMI 29.8 s/p bariatric surgery INTERVAL HISTORY: Pt awake alert and oriented x 3. Patient denies nausea vomiting or abdominal pain. Hemodynamically stable afebrile with a T-max of 99.7 in the last 24 antony rs. On laboratory white count trending down 7.3 today it has normalized H&H trended down slightly 12.5/36.3 [place] [address] improved from yesterday.s neutrophils normalized as well. Sodium is 128 improving, potassium 3.3 covered per protocol, chloride 91. Random glucose 222 mg/dL total calcium 8.2 total bili 4.4 liver enzymes still elevated but trending down total protein 5.7 albumin 2.3. Blood cultures with no growth x2 preliminary urine no growth. On MRCP gallstones in the gallbladder with gallbladder wall thickening and common duct dilation suggestive of acute cholecystitis in the proper clinical setting. No MRCP evidence of common duct stones seen. Patient is pending general surgery to see. REVIEW OF SYSTEMS: Const: [Yes for fever, fatigue, no weight changes] Eyes:[ no recent vision problems] ENT: [No congestion, ear pain, or sore throat] C/V: [no chest pain, palpitations or edema] Resp: [No cough, congestion, wheezing , or Shortness of breath] GI: No for abdominal pain, nausea, vomiting, no constipation, no for black stool. : [No incontinence of or dysuria M/S: [No joint or pain swelling] Skin: [No rash] Neuro: [no headache, focal numbness, or weakness, dizziness or seizures] Psych: [no depression or anxiety] Heme: [no abnormal bruising or bleeding] Lymph: [no swollen glands] PHYSICAL EXAM: GENERAL: alert, weak, awake oriented x 3, multiple tattoos HEENT: EOMI, Sclera icteric, moist mucosa NECK: Supple, no JVD, trachea midline LUNGS: Clear breath sounds bilaterally. No wheezes HEART: Regular rate and rhythm. Normal S1 and S2, without murmurs ABD: Abdomen soft, nontender. Bowel sounds present EXT: No clubbing cyanosis or edema, NEURO: Alert and oriented to person, follows commands Vital Signs (last 8hr) Date Time Temp Pulse Resp B/P (MAP) Pulse Ox O2 Delivery O2 Flow Rate FiO2 07/21/24 10:46 97 Room Air* 0 21 07/21/24 03:45 98.4 80 18 108/69 97 Room Air LABS: Hematology Labs: Test 07/21/24 06:51 07/20/24 10:46 Range/Units White Blood Count 7.3 # 4.8-10.8 K/uL Red Blood Count 4.29 L 4.50-6.20 MIL/uL Hemoglobin 12.5 L 14.0-18.0 g/dL Hematocrit 36.3 L 42-54 % Mean Corpuscular Volume 84.6 79-99 fL Mean Corpuscular Hemoglobin 29.1 27.0-33.0 pg Mean Corpuscular Hemoglobin Concent 34.4 32.0-36.0 g/dL Red Cell Distribution Width 11.2 11.0-15.5 % Platelet Count 82 L 130-400 K/uL Mean Platelet Volume 12.2 H 7.5-10.5 fL Immature Granulocyte % (Auto) 0.7 0-1 % Neutrophils (%) (Auto) 61.1 40.0-77.0 % Lymphocytes (%) (Auto) 23.0 21.0-51.0 % Monocytes (%) (Auto) 13.4 H 3.0-13.0 % Eosinophils (%) (Auto) 1.2 0.0-8.0 % Basophils (%) (Auto) 0.6 0.0-5.0 % Neutrophils # (Auto) 4.4 1.8-7.7 K/uL Lymphocytes # (Auto) 1.7 1.0-4.8 K/uL Monocytes # (Auto) 1.0 0.1-1.0 K/uL Eosinophils # (Auto) 0.09 0.00-0.70 K/uL Basophils # (Auto) 0.04 0.00-0.20 K/uL Absolute Immature Granulocyte (auto 0.05 0-1 K/uL Nucleated Red Blood Cells 0.0 0.0-0.19 % White Cell Morphology Comment See comments Chemistry Labs: Test 07/21/24 07:30 07/21/24 01:05 07/20/24 13:57 07/20/24 10:46 Range/Units Whole Blood Glucose 170 H 70-110 MG/DL Sodium Level 128 L 136-145 mmol/L Potassium Level 3.3 L 3.5-5.1 mmol/L Chloride Level 91 L 101-111 mmol/L Carbon Dioxide Level 31 21-32 mmol/L Blood Urea Nitrogen 13 7-18 mg/dL Creatinine 1.0 0.5-1.3 mg/dL Glomerular Filtration Rate Calc 94 >90 mL/min Random Glucose 222 H 70-105 mg/dL Total Calcium 8.2 L 8.5-10.1 mg/dL Total Bilirubin 4.4 H 0.2-1.0 mg/dL Aspartate Amino Transf (AST/SGOT) 554 H 10-37 U/L Alanine Aminotransferase (ALT/SGPT) 808 *H 12-78 U/L Alkaline Phosphatase 140 H 50-136 U/L Total Protein 5.7 L 6.0-8.3 g/dL Albumin 2.3 L 3.5-5.0 g/dL Hemoglobin A1c 7.7 H 4.0-6.0 % Estimated Average Glucose (eAG) 174 H 70-126 mg/dL Lactic Acid Level 3.4 H 0.8-2.5 mmol/L Magnesium Level 1.80 1.80-2.40 mg/dL Ferritin 671 H 30-400 ng/mL Gamma Glutamyl Transpeptidase 381 H 5-85 U/L Ammonia < 10 L 11-32 umol/L C-Reactive Protein, Quantitative 206.20 H 0.5-3.0 mg/L Procalcitonin 82.65 H 0.05-0.5 ng/mL Thyroid Stimulating Hormone (TSH) 0.43 0.36-3.74 uIU/mL Direct Bilirubin 4.7 H 0.0-0.3 mg/dL Total Creatine Kinase 143 21-232 U/L Troponin I High Sensitivity 17 4-75 ng/L Triglycerides Level 229 H 30-200 mg/dL Lipase 2270 *H 16-77 U/L Coagulation Labs: Test 07/20/24 13:57 Range/Units Prothrombin Time 12.4 H 9.6-11.6 SEC Prothromb Time International Ratio 1.16 H 0.85-1.15 Activated Partial Thromboplast Time 29.6 26.3-35.5 SEC DIAGNOSTICS / RADIOLOGY RESULTS: Signed PATIENT: MAGALI STERLING MR#: [id number] : 1980 SEX: M AGE: 44 LOCATION: [facility] ORDER [id number] STATUS: ADM IN REPORT#: [id number] SERVICE [id number] REASON: abnormal lfts ORDERING PHYSICIAN: LYUBOV GARCIA [employer] MACHINE PROCEDURE: MRCP WO - MRCP(ABDWO)CHOLANGIOPANCREATOG MRCP(ABDWO)CHOLANGIOPANCREATOG HISTORY: Abnormal liver function tests COMPARISON: CT from July 20, 2024 TECHNIQUE: MRI of the abdomen was performed utilizing multiple pulse sequences in axial, coronal and sagittal planes. Patient was not given contrast through intravenous route. MRCP was performed. FINDINGS: No pleural effusion is seen bilaterally. Liver is enlarged measuring 21 cm. Spleen is enlarged measuring 15 cm. Gallstones are seen in the gallbladder with sludge material. Gallbladder wall is thick measuring 5.8 mm. Findings are suspicious for acute cholecystitis in the proper clinical setting. Common duct is dilated measuring 8 mm. No MR evidence of common duct stone is seen. Adrenal glands and pancreas are unremarkable. Both kidneys are seen without hydronephrosis. IMPRESSION: 1. Gallstones in the gallbladder with gallbladder wall thickening and common duct dilatation suggested of acute cholecystitis in the proper clinical setting. No MRCP evidence of common duct stone is seen. DICTATED BY: XOCHILT JEFFERS MD DATE: 07/20/241640 ELECTRONICALLY SIGNED BY: XOCHILT JEFFERS MD DATE: 07/20/241644 PLAN CBC, CMP, Chest x-ray Blood cultures Check for flu and COVID Trend lactic acid Continue broad-spectrum antibiotic with Rocephin and add doxycycline for suspected Vibrio heart least two weeks Patient received crystalloids 30 mL/kilogram IV fluids in the ED Target map at 65 or greater Follow GI recommendations Educated patient should avoid eating raw or undercooked shellfish, particularly oysters. Patient verbalized understanding. Follow GI recommendations Follow ID recommendations Follow General surgery recommendations. NEURO: Minimize central acting medications as possible. Maintain fall precautions, adequate lighting during the day PULMONARY: Supplemental 02 as needed. Maintain aspiration precautions at all times CARDIOVASCULAR: Follow hemodynamics. Vital signs per facility protocol GI & NUTRITION: Continue with nutritional support. Continue stool softeners and laxatives as needed. KIDNEYS & ELECTROLYTES: Strict monitoring of intake, output and overall fluid balance. Avoid nephrotoxic medications to the extent possible. Medications to be dosed according to renal function. Monitor electrolytes and replace as needed ENDOCRINE: Maintain blood glucose between 100-180 at all times. Hypoglycemia protocol in place INFECTIOUS DISEASE: Trend temperature, WBC and procalcitonin level Follow cultures, deescalate antibiotics as soon as possible. Panculture if new onset fever ONCOLOGY/HEMATOLOGY/COAGULATION: Monitor for s/s of bleeding Monitor hemoglobin, coagulation studies as needed SKIN: Pressure ulcer prevention per facility protocol Specialty mattress ORTHO/REHAB: Continue PT/OT Prophylaxis: Continue GI and DVT prophylaxis Code Status: Full Resuscitation Disposition: TBD Other: Total patient care time exceeds 35 minutes excluding all procedures. HAILEE LYNN Jul 21, 2024 11:08
--- NOTE | 2024-07-21 11:36 | PN ---
FOLLOWUP PROGRESS NOTE SUBJECTIVE: A 44-year-old male initially presented to the hospital with significant nausea, vomiting, diarrhea. The patient was found to have renal dysfunction as well as electrolyte abnormalities including significant hyponatremia. The patient was started on IV fluids and serum sodium continues to slowly improve. He is scheduled for colonoscopy later today and the patient is being seen as a followup visit for all of the above. REVIEW OF SYSTEMS: GENERAL: He is feeling somewhat improved. HEENT: No change in vision. No change in hearing. CARDIOVASCULAR: There is no current chest pain or palpitations. PULMONARY: There is no shortness of breath. GASTROINTESTINAL: As described above. MUSCULOSKELETAL: Complains of weakness. PHYSICAL EXAMINATION:. VITAL SIGNS: Blood pressure 108/69, pulse 80s. GENERAL: Chronically ill male, much older than appearing. HEENT: Head is atraumatic. Pupils equal, roving to light. Oropharynx is without exudate. Nares clear. NECK: There is no JVP. There is no thyromegaly, no mass. CARDIOVASCULAR: Regular. There is no S3, S4 gallop. LUNGS: Coarse with equal thoracic movement. ABDOMEN: Soft, nondistended, nontender. EXTREMITIES: No clubbing, no cyanosis. NEUROLOGIC: He is awake. He is alert. LABORATORY DATA: Sodium 128, potassium ____ BUN 13, creatinine is 1, ALT is 800. Hemoglobin 12, hematocrit 36. IMPRESSION: * Renal dysfunction. * Electrolyte abnormalities. * Elevated liver function tests. * Diabetes mellitus. * History of substance abuse. PLAN: The patient's serum sodium continues to slowly improve. The patient's IV fluids can safely be discontinued once the patient is tolerating an adequate amount of diet. The patient's GI workup is ongoing. We will continue to follow closely. The patient and family at the bedside. Multiple questions were all answered. TID: [id number] RECEIPT: [id number]
[2024-07-21] MEDS: PoTASSium chloRIDE 20MEQ ER 20 MEQ ERTAB PO PRN (11:55)
[2024-07-21] MEDS ORDERED: PoTASSium chl 10% ELIXIR 20MEQ 20 MEQ/15 ML UDCUP PO PRN (12:00)
[2024-07-21] MEDS ORDERED: PoTASSium chloRIDE 20MEQ/100ML 100 ML IV PRN (12:00)
--- NOTE | 2024-07-21 12:24 | PN ---
[facility] PROGRESS NOTE Date of Service: Jul 21, 2024 Time of Service: 12:17 SUBJECTIVE: The patient has been seen and examined today during my rounding, back in the room from having EGD, tolerated the procedure well, he is alert oriented x3, BP 106/63, afebrile, saturating normal on room air. He denies dizziness, no headache, no blurry vision, no chest pain, no shortness a breath, no nausea, no vomiting, no abdominal discomfort, no diarrhea, no constipation, no melena, no hematochezia, no hematemesis, no hematuria, no dysuria. REVIEW OF SYSTEMS CONSTITUTIONAL: Admits having fever. Last temp of 104 F at home yesterday with shakiness. Denies chills, or night sweats. No unintentional weight loss reported. NEUROLOGICAL: Denies headache, amaurosis fugax, motor weakness, sensory deficit, vertigo/spinning sensation, gait abnormalities, or tremors. ENT: No hearing loss, otalgia, otorrhea, rhinitis, rhinorrhea, hoarseness, or so re throat. CARDIOVASCULAR: Denies any exertional angina, dyspnea on exertion, orthopnea, paroxysmal nocturnal dyspnea, palpitations, life-threatening arrhythmias, claudication. PULMONARY: Denies any shortness of breath, cough, phlegm/sputum, hemoptysis, pleuritic chest pain. SLEEP: Denies morning headaches, daytime somnolence or napping. Denies difficulty falling asleep, staying asleep, waking from sleep. Denies knowledge of snoring. GASTROINTESTINAL: reports having diarrhea GENITOURINARY: Denies frequency, urgency, nocturia, hematuria or incontinence (Storage/Irritative symptoms.) Low urinary stream, straining to void, urinary intermittency or hesitancy, splitting of the voiding stream, terminal dribbling. ENDOCRINOLOGIC: Denies polyuria, polydipsia, polyphagia or heat/cold intolerances. HEMATOLOGIC: Denies thrombophilia/previous clots, or coagulopathy/bleeding disorders. ONCOLOGIC: Denies personal history of malignancy. DERMATOLOGIC: Denies rashes or pruritus. PSYCHIATRIC: Denies any suicidal or homicidal ideation. Denies hallucinations. PHYSICAL EXAM GENERAL APPEARANCE: Patient appears ill and jaundiced. The patient is awake, alert, and oriented, in no acute cardiopulmonary distress. NEUROLOGICAL: Cranial nerves II-XII grossly intact. Motor is 5/5 in bilateral upper and lower extremities proximal to distal. No sensory deficits. HEENT: Positive for scleral icterus. Face is symmetric. Pupils are equal and reactive. Extraocular movements are intact. NECK: Supple. No JVD. No thyromegaly. No submental, submandibular, pre- /postauricular, occipital or supraclavicular lymphadenopathy. CHEST: Normal chest expansion. No Telemetry. LUNGS: Absence of any rales, rhonchi or any wheezing. CARDIOVASCULAR: Regular. S1 and S2 normal. No appreciable rubs, murmurs or gallops. ABDOMEN: Soft, nontender, and nondistended. There is no rebound, voluntary guarding, or rigidity. : Deferred. No Zambrano. EXTREMITIES: Non-edematous and not cyanotic. No clubbing. Good capillary refill. SKIN: No skin breakdown. Vital Signs (last 8hr) Date Time Temp Pulse Resp B/P (MAP) Pulse Ox O2 Delivery O2 Flow Rate FiO2 07/21/24 12:11 97.9 76 18 106/63 99 Room Air 07/21/24 11:25 98.2 78 15 112/61 97 Room Air 07/21/24 11:20 98.2 80 16 115/68 97 Room Air 07/21/24 11:15 98.2 80 15 103/74 97 Room Air 07/21/24 11:10 98.2 81 15 102/72 97 Room Air 07/21/24 11:05 98.2 82 15 104/60 98 Nasal Cannula 1.0 22 07/21/24 11:00 98.2 85 15 105/68 98 Nasal Cannula 2.0 24 07/21/24 10:55 98.2 85 15 109/65 96 Nasal Cannula 3.0 28 07/21/24 10:46 97 Room Air* 0 21 LABS: Laboratory: Test 07/21/24 07:30 07/21/24 06:51 07/21/24 01:05 07/20/24 14:54 Range/Units Whole Blood Glucose 170 H 70-110 MG/DL White Blood Count 7.3 # 4.8-10.8 K/uL Red Blood Count 4.29 L 4.50-6.20 MIL/uL Hemoglobin 12.5 L 14.0-18.0 g/dL Hematocrit 36.3 L 42-54 % Mean Corpuscular Volume 84.6 79-99 fL Mean Corpuscular Hemoglobin 29.1 27.0-33.0 pg Mean Corpuscular Hemoglobin Concent 34.4 32.0-36.0 g/dL Red Cell Distribution Width 11.2 11.0-15.5 % Platelet Count 82 L 130-400 K/uL Mean Platelet Volume 12.2 H 7.5-10.5 fL Immature Granulocyte % (Auto) 0.7 0-1 % Neutrophils (%) (Auto) 61.1 40.0-77.0 % Lymphocytes (%) (Auto) 23.0 21.0-51.0 % Monocytes (%) (Auto) 13.4 H 3.0-13.0 % Eosinophils (%) (Auto) 1.2 0.0-8.0 % Basophils (%) (Auto) 0.6 0.0-5.0 % Neutrophils # (Auto) 4.4 1.8-7.7 K/uL Lymphocytes # (Auto) 1.7 1.0-4.8 K/uL Monocytes # (Auto) 1.0 0.1-1.0 K/uL Eosinophils # (Auto) 0.09 0.00-0.70 K/uL Basophils # (Auto) 0.04 0.00-0.20 K/uL Absolute Immature Granulocyte (auto 0.05 0-1 K/uL Nucleated Red Blood Cells 0.0 0.0-0.19 % Sodium Level 128 L 136-145 mmol/L Potassium Level 3.3 L 3.5-5.1 mmol/L Chloride Level 91 L 101-111 mmol/L Carbon Dioxide Level 31 21-32 mmol/L Blood Urea Nitrogen 13 7-18 mg/dL Creatinine 1.0 0.5-1.3 mg/dL Glomerular Filtration Rate Calc 94 >90 mL/min Random Glucose 222 H 70-105 mg/dL Total Calcium 8.2 L 8.5-10.1 mg/dL Total Bilirubin 4.4 H 0.2-1.0 mg/dL Aspartate Amino Transf (AST/SGOT) 554 H 10-37 U/L Alanine Aminotransferase (ALT/SGPT) 808 *H 12-78 U/L Alkaline Phosphatase 140 H 50-136 U/L Total Protein 5.7 L 6.0-8.3 g/dL Albumin 2.3 L 3.5-5.0 g/dL Urine Color YELLOW YELLOW Urine Appearance CLEAR CLEAR Urine pH 5.5 5.0-8.0 Urine Specific Horton 1.031 1.001-1.031 Urine Protein 20 H NEGATIVE mg/dL Urine Glucose (UA) 200 H NEGATIVE mg/dL Urine Ketones NEGATIVE NEGATIVE mg/dL Urine Occult Blood NEGATIVE NEGATIVE Urine Nitrate NEGATIVE NEGATIVE Urine Bilirubin 1 H NEGATIVE mg/dL Urine Urobilinogen 0.2 0.2-1.0 mg/dL Urine Leukocyte Esterase NEGATIVE NEGATIVE Therese/uL Urine RBC 2-5 H 0-1 /HPF Urine WBC 11-25 H 0-1 /HPF Urine Squamous Epithelial Cells RARE 0-2 /HPF Urine Bacteria RARE None Seen /HPF Urine Osmolality 312 50-1200 mOsm/kg Urine Random Creatinine 101.01 30-135 mg/dL Urine Random Sodium < 13 L 40-220 mmol/l Urine Opiates Screen NEGATIVE NEGATIVE Urine Barbiturates Screen NEGATIVE NEGATIVE Urine Phencyclidine Screen NEGATIVE NEGATIVE Urine Amphetamines Screen NEGATIVE NEGATIVE Urine Benzodiazepines Screen NEGATIVE NEGATIVE Urine Cocaine Screen POSITIVE H NEGATIVE Urine Marijuana (THC) Screen NEGATIVE NEGATIVE Test 07/20/24 13:57 07/20/24 11:51 07/20/24 10:46 Range/Units Prothrombin Time 12.4 H 9.6-11.6 SEC Prothromb Time International Ratio 1.16 H 0.85-1.15 Activated Partial Thromboplast Time 29.6 26.3-35.5 SEC Hemoglobin A1c 7.7 H 4.0-6.0 % Estimated Average Glucose (eAG) 174 H 70-126 mg/dL Lactic Acid Level 3.4 H 0.8-2.5 mmol/L Magnesium Level 1.80 1.80-2.40 mg/dL Ferritin 671 H 30-400 ng/mL Gamma Glutamyl Transpeptidase 381 H 5-85 U/L Ammonia < 10 L 11-32 umol/L C-Reactive Protein, Quantitative 206.20 H 0.5-3.0 mg/L Procalcitonin 82.65 H 0.05-0.5 ng/mL Thyroid Stimulating Hormone (TSH) 0.43 0.36-3.74 uIU/mL Acetaminophen Level 5 L 10-29 mcg/mL Serum Alcohol < 3 0-10 mg/dL Hepatitis A IgM Antibody Non-Reactive Nonreactive Hepatitis B Surface Antigen. Non-Reactive Nonreactive Hepatitis B Core IgM Antibody Non-Reactive Negative Hepatitis C Antibody Non-Reactive Nonreactive HIV (1&2) Antibody Non-Reactive Negative HIV P24 Antigen, Qualitative Non-Reactive Negative Influenza Type A Antigen Negative For Type A NEGATIVE Influenza Type B Antigen Negative For Type B NEGATIVE SARS-CoV-2 Antigen (Rapid) PRESUMPTIVE NEGATIVE NEGATIVE White Cell Morphology Comment See comments Direct Bilirubin 4.7 H 0.0-0.3 mg/dL Total Creatine Kinase 143 21-232 U/L Troponin I High Sensitivity 17 4-75 ng/L Triglycerides Level 229 H 30-200 mg/dL Lipase 2270 *H 16-77 U/L Current Medications Medications (Trade) Dose Ordered Sig/Christina Route PRN Reason Start Time Stop Time Status Last Admin Dose Admin Ceftriaxone Sodium (Rocephin 2gm Inj) 2 gm Q24H IVPB 07/20/24 13:00 07/30/24 12:59 07/20/24 13:16 2 GM Chlordiazepoxide HCl (LIBrium 25 MG CAP) 25 mg Q6H PRN PO ALCOHOL WITHDRAWAL PROTOCOL 07/20/24 13:30 07/27/24 13:29 Doxycycline Hyclate 250 ml @ 125 mls/hr Q12H IV 07/20/24 13:00 07/30/24 12:59 07/21/24 01:30 125 MLS/HR Folic Acid (FOLic ACID 1 MG TABLET) 1 mg DAILY PO 07/21/24 09:00 07/23/24 09:01 Insulin Human Regular (humuLIN R 100 UNIT/ML 3ML) INSULIN SLIDING SCAL... ACHS SQ 07/20/24 16:30 08/19/24 16:29 07/20/24 22:08 6 UNIT Lorazepam (AtiVAN) 1 mg Q4H PRN IVP ALCOHOL WITHDRAWAL PROTOCOL 07/20/24 13:30 07/27/24 13:29 07/20/24 23:45 1 MG Ondansetron HCl (zoFRAN 4MG INJ) 4 mg Q6H PRN IVP NAUSEA/VOMITING 07/20/24 13:30 07/20/24 13:17 DC Ondansetron HCl (zoFRAN 4MG INJ) 4 mg Q6H PRN IVP NAUSEA/VOMITING 07/20/24 13:30 08/19/24 13:29 Pantoprazole Sodium (PROTonix 40MG INJ) 40 mg Q12H IVP 07/20/24 13:30 08/19/24 13:29 07/21/24 01:30 40 MG Pharmacy Profile Note (Pharmacy Communication) 1 each PROTOCOL PRN MISC ETOH Withdrawal Score changes 07/20/24 13:30 07/27/24 13:29 Potassium Chloride 100 ml @ 100 mls/hr AD PRN IV POTASSIUM PROTOCOL 07/21/24 12:00 08/20/24 11:59 Potassium Chloride (K-Dur/Klor-Con 20meq) 20 meq AD PRN PO POTASSIUM PROTOCOL 07/21/24 12:00 08/20/24 11:59 07/21/24 11:55 20 MEQ Potassium Chloride (KCl 10% Elixir 20meq/15ml) 20 meq AD PRN PO POTASSIUM PROTOCOL 07/21/24 12:00 08/20/24 11:59 Sodium Chloride 1,000 ml @ 75 mls/hr [id number] IV 07/20/24 13:00 08/19/24 12:59 07/21/24 01:44 75 MLS/HR Thiamine HCl (Vitamin B-1) 200 mg Q24H IVP 07/20/24 13:00 07/24/24 13:00 07/20/24 14:32 200 MG DIAGNOSTICS / RADIOLOGY: [ ] ASSESSMENT: Severe acute hepatitis POA r/o Vibriosis, POA Acute cholecystitis rule out Severe hyponatremia, hypochloremia POA Sepsis, POA, 2/2 acute cholecystitis vs infectious Gastroenteritis, POA Concern for ischemic Hepatitis, POA Elevated lactate POA Leukocytosis POA Thrombocytopenia, POA Hyperbilirubinemia POA Acute pancreatitis POA Hx of Chronic Alcoholism, POA Cocaine abuse Hypertension Type 2 diabetes mellitus Hyperlipidemia Hx of NSTEMI, in 2021, w/ Hx of PCI, POA Hx of Dual Antiplatelet therapy as outpatient, POA Overweight BMI 29.8 s/p bariatric surgery PLAN: Patient remains admitted to the PCU Severe acute hepatitis POA r/o Acute vs Chronic Cholecystitis, POA r/o Vibriosis, POA Infectious gastroenteritis, POA Patient will remain NPO. Continue supportive care with IV fluids Continue to monitor liver enzymes as well as Acute hepatitis panel and HIV panel negative Continue broad-spectrum IV antibiotics, continue to follow ID input and recommendation Follow stool studies Continue to follow CBC transfuse as needed Follow for autoimmune disease (KASSIE, ceruloplasmin, antimitochondrial antibody). Replace electrolytes IV per protocol HIDA scan pending today to rule out cholecystitis, surgical consultation requested, follow input and recommendation Electrolyte imbalance; severe hyponatremia, hypochloremia POA Continue to monitor sodium level, follow Nephrology input and recommendations Elevated lactate POA Monitor lactic acid level Leukocytosis POA Thrombocytopenia, POA A.m. labs Hyperbilirubinemia POA Liver enzymes in a.m. Hx Chronic alcoholism Continue thiamine HCl 200 mg and folic acid 1 mg p.o. P.r.n. Librium 25 mg and Ativan 1 mg PRN added for alcohol withdrawal symptoms. Monitor for signs of alcohol withdrawal Hypertension Hx of CAD with prior Hx of NSTEMI in 2021 Hold statins we will reconcile home meds once available, restart aspirin if no signs of bleeding and no procedures planned Type 2 diabetes mellitus Monitor glucose a.c. and HS. Follow insulin sliding scale. Hyperglycemia and hypoglycemia protocol Plan of action discussed, all questions answered, agreed and understood the information provided. Total PCU time spent greater than 30 minutes. GLORIA ALCALA MD Jul 21, 2024 12:23
[2024-07-21] MEDS ORDERED: SIMETHICONE 40 MG/0.6 ML ML ONE (14:48)
--- NOTE | 2024-07-21 23:19 | CONS ---
DATE OF SERVICE: 07/20/2024 INFECTIOUS DISEASE CONSULTATION NOTE REQUESTING PHYSICIAN: Galen Slade MD REASON FOR CONSULTATION: Sepsis. HISTORY OF PRESENT ILLNESS: This is a 44-year-old male with history of obesity, diabetes mellitus, hypertension, alcoholism, who presented to hospital with fever. The patient's fever has been going on for about five days. The patient claims fever started after eating raw oysters over the weekend. The patient subsequently ____ diarrhea. Went to his doctor, who gave him some antibiotic. Due to persistent fever, he came to the Emergency Room. The patient also complained of right upper quadrant abdominal pain. While in the Emergency Room, the patient was found with WBC of 5.9 with elevated liver enzymes. Lipase was also elevated at 2270. Abdominal sonogram showed gallstone and sludge in the gallbladder. No dysuria or urinary frequency. No rashes or itchiness. PAST MEDICAL HISTORY: * Diabetes mellitus. * Hypertension. * Alcohol abuse. * Obesity. * Dyslipidemia. PAST SURGICAL HISTORY: Back surgery. ALLERGIES: No known drug allergy. CURRENT MEDICATIONS: Reviewed. SOCIAL HISTORY: The patient uses alcohol. He lives with . FAMILY HISTORY: Positive for diabetes mellitus. REVIEW OF SYSTEMS: Greater than 10 systems were reviewed, negative except as documented above. PHYSICAL EXAMINATION: GENERAL: Young male, awake. VITAL SIGNS: Temperature 99.1, pulse 80, respiratory rate 16, BP 98/46. EYES: There is jaundice. No conjunctival hemorrhage. HENT: Dry oral mucosa. No oral thrush seen. NECK: Supple. No JVD or thyromegaly. LUNGS: Good air entry. No rales. No rhonchi. CARDIOVASCULAR: S1, S2 regular. No murmur heard. ABDOMEN: Full. Soft. Nontender. Bowel sound is present. CENTRAL NERVOUS SYSTEM: Awake, alert, oriented x 3. No focal deficits. SKIN: No rashes. No itchiness. LYMPHATIC: No peripheral lymphadenopathy. BACK: No deformity. No pressure ulcer. VASCULAR: No ischemia or gangrene of extremities. LABORATORY DATA: Alkaline phosphatase 197, AST 1184, ALT 1073. Lipase 2270. Sodium 119, potassium 3.6, BUN 17, creatinine 1.2. WBC 11.7, hemoglobin 13.2, platelets 73. Influenza antigen negative. RADIOLOGY: Abdominal sonogram results reviewed. ASSESSMENT: A 44-year-old male who presented to hospital with fever, weakness and diarrhea. CURRENT PROBLEMS: Include: * Positive Gram-negative bacteremia and sepsis. * Severe hyponatremia. * Elevated liver enzymes, may be due to shock liver. * Diabetes mellitus. * Chronic alcoholism. * Possible ____. * Obesity. PLAN: * Follow up cultures. * Follow up hepatitis serology results. * Continue ceftriaxone. * Continue doxycycline. * Continue DVT prophylaxis. * Monitor electrolytes. * Continue GI prophylaxis. * The patient will be placed on CIWA protocol. * Continue the patient on thiamine and folic acid. Thank you for allowing me to participate in the care of this patient. TID: [id number] RECEIPT: [id number]
[2024-07-22] VITALS (8 sets, daily range): BP systolic 116–133; BP diastolic 60–86; PULSE 63–85; RESP 16–18; TEMP 97.5–100; O2SAT 96–99
--- NOTE | 2024-07-22 00:14 | HMCIMG ---
NM HIDA WO EF/CCK REASON: R/O ACUTE CHOLECYSTITIS. COMPARISON: None TECHNIQUE: Hepatobiliary imaging study was performed with Choletec through intravenous route. FINDINGS: There is normal visualization of gallbladder activity and bowel activity at 1 hour. IMPRESSION: Normal hepatobiliary imaging study.
[2024-07-22 04:20] LABS: HEMATOCRIT 33.7 % (42-54); MEAN CORPUSCULAR HEMOGLOBIN 28.7 pg (27.0-33.0); MEAN CORPUSCULAR HGB CONC 34.1 g/dL (32.0-36.0); RED BLOOD CELL COUNT(AUTO) 4.01 MIL/uL (4.50-6.20); RED CELL DISTRIBUTION WIDTH 11.4 % (11.0-15.5); WHITE BLOOD COUNT (AUTO) 5.4 K/uL (4.8-10.8)
[2024-07-22 04:36] LABS: ALBUMIN 2.2 g/dL (3.5-5.0); BILIRUBIN,TOTAL 2.6 mg/dL (0.2-1.0); CREATININE 0.8 mg/dL (0.5-1.3); POTASSIUM 3.4 mmol/L (3.5-5.1); TOTAL PROTEIN, SERUM 5.4 g/dL (6.0-8.3)
--- NOTE | 2024-07-22 09:49 | PN ---
SUBJECTIVE: A 44-year-old male initially presented with acute renal failure. The patient with underlying substance abuse. The patient also with elevated liver function tests. The patient's creatinine is much improved. The patient's serum sodium also improved. He is tolerating a diet and the patient is being seen as a followup visit for all of the above. REVIEW OF SYSTEMS: GENERAL: The patient is feeling weak and tired. HEENT: No change in vision. No change in hearing. CARDIOVASCULAR: No current chest pain or palpitations. PULMONARY: There is no shortness of breath. GASTROINTESTINAL: As described above. MUSCULOSKELETAL: Complains of weakness. PHYSICAL EXAMINATION: VITAL SIGNS: Blood pressure 121/86, pulse in the 70s. GENERAL: He is a chronically ill male, older than appearing. HEENT: Head is atraumatic. Pupils equal, roving to light. Oropharynx is without exudate. Nares clear. NECK: There is no JVP. There is no thyromegaly, no mass. CARDIOVASCULAR: Regular. There is no S3, S4 gallop. LUNGS: Coarse with equal thoracic movement. ABDOMEN: Soft, nondistended, nontender. EXTREMITIES: Reveal no clubbing, no cyanosis. NEUROLOGIC: He is awake. He is alert. LABORATORY DATA: Sodium 132, potassium 3.4, bicarbonate 27, BUN 9, creatinine 0.8. IMPRESSION: * Acute on chronic renal dysfunction. * Hyponatremia. * Elevated liver function tests. * Diabetes mellitus. * Substance abuse. PLAN: The patient's renal function much improved. The patient's serum sodium also improved. The patient now is tolerating a diet. The IV fluids can safely be discontinued. I did discuss with the patient in regards to cessation of all alcohol and drug abuse upon discharge to home. Once the patient is discharged, he can follow up in the [facility]. TID: [id number] RECEIPT: [id number]
--- NOTE | 2024-07-22 09:58 | CONS ---
CONSULT NOTE: Consulting physician:Dr Slade Consulting service: General surgery Reason for consultation: Cholecystitis versus gallstone pancreatitis History of present illness: This is a 44-year-old male with a significant medical history noted below with a history of alcoholism and cocaine abuse with NSTEMI back in 2021 status post bariatric surgery who has been consulted to surgery for concerns fevers for the last six days. Patient reports having discomfort after eating raw oysters. Patient's initially before presentation presented to PCP where he was found to have an elevated white count and a beta liver enzymes and was reported follow up for further evaluation. The patient undergoing imaging. On presentation patient with an elevated white count which is is now normal. Patient with elevated LFTs and elevated bilirubin of 4.4 which prompted an MRCP which was negative for choledocholithiasis. Patient also with elevated lipase greater than 2000. Today patient is seen in room resting. HIDA scan completed negative for cholecystitis at this time. Total bilirubin trending down today. Patient also on diet and tolerating at this time. Hypertension Type 2 diabetes mellitus Hyperlipidemia Alcoholism NSTEMI in 2021 [place] in June 2012 Routine cocaine use PAST SURGICAL HISTORY: Bariatric surgery/gastric sleeve 12 years ago Heart cath - 2 stents PAST SOCIAL HISTORY: States he drinks alcohol daily: 1 Tequila small bottle daily Former smoker States he uses cocaine; asked use1 week ago. Review of systems: General: No Fever, No Chills, No Night Sweats, No Fatigue, No Malaise, No Appetite, No Other HEENT: No Head Aches, No Visual Changes, No Eye Pain, No Ear Pain, No Dysphasia, No Sinus Congestion, No Post Nasal Drip, No Sore Throat, No Other Pulmonary: No Dyspnea, No Cough, No Pleuritic Chest Pain, No Other Cardiovascular: No: Chest Pain, Palpitations, Orthopnea, Paroxysmal No Dyspnea, Edema, Lt Headedness, Other Gastrointestinal: No: Nausea, Vomiting, Diarrhea, Constipation, Melena, Hematochezia, Other Genitourinary: No Dysuria, No Frequency, No Incontinence, No Hematuria, No Retention, No Other Musculoskeletal: No: other, neck pain, shoulder pain, arm pain, back pain, hand pain, leg pain, foot pain Skin: No Urticaria, No Rash, No Other Neurological: No: Weakness, Numbness, Incoordination, Change in speech, Confusion, Seizures, Other Physical exam: General: Awake alert and oriented Heart: Regular rate and rhythm} Lungs: Clear to auscultation no distress Abdomen: [Soft, nontender, nondistended Assessment: This is a 44-year-old male with concerns of possible gallstone pancreatitis Plan: Patient having male today we will need to trend lipase. Patient may need cardiac workup and clearance before moving forward with any surgical intervention Possible outpatient follow up for elective cholecystectomy Dr. Meza to be updated in patient's status and surgical team patient closely TIANNA TATE Jr. Jul 22, 2024 09:58
--- NOTE | 2024-07-22 12:47 | PN ---
[facility] PROGRESS NOTE Date of Service: Jul 22, 2024 Time of Service: 12:44 SUBJECTIVE: The patient has been seen and examined today during my rounding, back in the room from having EGD, tolerated the procedure well, he is alert oriented x3, BP 106/63, afebrile, saturating normal on room air. He denies dizziness, no headache, no blurry vision, no chest pain, no shortness a breath, no nausea, no vomiting, no abdominal discomfort, no diarrhea, no constipation, no melena, no hematochezia, no hematemesis, no hematuria, no dysuria. 07/22 the patient has been seen and examined during my rounding, no acute events over tonight, remains hemodynamically stable, afebrile, saturating normal on room air. He is alert oriented x3, denies nausea, no vomiting, no abdominal pain. Results of liver enzymes reviewed, discussed with the patient, currently trending down, all questions answered. REVIEW OF SYSTEMS CONSTITUTIONAL: Admits having fever. Last temp of 104 F at home yesterday with shakiness. Denies chills, or night sweats. No unintentional weight loss reported. NEUROLOGICAL: Denies headache, amaurosis fugax, motor weakness, sensory deficit, vertigo/spinning sensation, gait abnormalities, or tremors. ENT: No hearing loss, otalgia, otorrhea, rhinitis, rhinorrhea, hoarseness, or sore throat. CARDIOVASCULAR: Denies any exertional angina, dyspnea on exertion, orthopnea, paroxysmal nocturnal dyspnea, palpitations, life-threatening arrhythmias, claudication. PULMONARY: Denies any shortness of breath, cough, phlegm/sputum, hemoptysis, pleuritic chest pain. SLEEP: Denies morning headaches, daytime somnolence or napping. Denies difficulty falling asleep, staying asleep, waking from sleep. Denies knowledge of snoring. GASTROINTESTINAL: reports having diarrhea GENITOURINARY: Denies frequency, urgency, nocturia, hematuria or incontinence (Storage/Irritative symptoms.) Low urinary stream, straining to void, urinary intermittency or hesitancy, splitting of the voiding stream, terminal dribbling. ENDOCRINOLOGIC: Denies polyuria, polydipsia, polyphagia or heat/cold intolerances. HEMATOLOGIC: Denies thrombophilia/previous clots, or coagulopathy/bleeding disorders. ONCOLOGIC: Denies personal history of malignancy. DERMATOLOGIC: Denies rashes or pruritus. PSYCHIATRIC: Denies any suicidal or homicidal ideation. Denies hallucinations. PHYSICAL EXAM GENERAL APPEARANCE: Patient appears ill and jaundiced. The patient is awake, alert, and oriented, in no acute cardiopulmonary distress. NEUROLOGICAL: Cranial nerves II-XII grossly intact. Motor is 5/5 in bilateral upper and lower extremities proximal to distal. No sensory deficits. HEENT: Positive for scleral icterus. Face is symmetric. Pupils are equal and reactive. Extraocular movements are intact. NECK: Supple. No JVD. No thyromegaly. No submental, submandibular, pre- /postauricular, occipital or supraclavicular lymphadenopathy. CHEST: Normal chest expansion. No Telemetry. LUNGS: Absence of any rales, rhonchi or any wheezing. CARDIOVASCULAR: Regular. S1 and S2 normal. No appreciable rubs, murmurs or gallops. ABDOMEN: Soft, nontender, and nondistended. There is no rebound, voluntary guarding, or rigidity. : Deferred. No Zambrano. EXTREMITIES: Non-edematous and not cyanotic. No clubbing. Good capillary refill. SKIN: No skin breakdown. Vital Signs (last 8hr) Date Time Temp Pulse Resp B/P (MAP) Pulse Ox O2 Delivery O2 Flow Rate FiO2 07/22/24 11:57 98.4 71 16 122/60 100 Room Air 07/22/24 07:55 97.5 73 16 121/86 100 Room Air 07/22/24 07:00 96 Room Air* 0 21 LABS: Laboratory: Test 07/22/24 11:49 07/22/24 04:00 07/21/24 06:51 07/20/24 14:54 Range/Units Whole Blood Glucose 152 H 70-110 MG/DL White Blood Count 5.4 # 4.8-10.8 K/uL Red Blood Count 4.01 L 4.50-6.20 MIL/uL Hemoglobin 11.5 L 14.0-18.0 g/dL Hematocrit 33.7 L 42-54 % Mean Corpuscular Volume 84.0 79-99 fL Mean Corpuscular Hemoglobin 28.7 27.0-33.0 pg Mean Corpuscular Hemoglobin Concent 34.1 32.0-36.0 g/dL Red Cell Distribution Width 11.4 11.0-15.5 % Platelet Count 123 #L 130-400 K/uL Mean Platelet Volume 12.1 H 7.5-10.5 fL Nucleated Red Blood Cells 0.0 0.0-0.19 % Sodium Level 132 L 136-145 mmol/L Potassium Level 3.4 L 3.5-5.1 mmol/L Chloride Level 99 L 101-111 mmol/L Carbon Dioxide Level 27 21-32 mmol/L Blood Urea Nitrogen 9 7-18 mg/dL Creatinine 0.8 0.5-1.3 mg/dL Glomerular Filtration Rate Calc 111 >90 mL/min Random Glucose 176 H 70-105 mg/dL Total Calcium 8.3 L 8.5-10.1 mg/dL Magnesium Level 1.30 L 1.6-2.6 mg/dL Total Bilirubin 2.6 H 0.2-1.0 mg/dL Aspartate Amino Transf (AST/SGOT) 165 H 10-37 U/L Alanine Aminotransferase (ALT/SGPT) 516 H 12-78 U/L Alkaline Phosphatase 148 H 50-136 U/L Total Protein 5.4 L 6.0-8.3 g/dL Albumin 2.2 L 3.5-5.0 g/dL Immature Granulocyte % (Auto) 0.7 0-1 % Neutrophils (%) (Auto) 61.1 40.0-77.0 % Lymphocytes (%) (Auto) 23.0 21.0-51.0 % Monocytes (%) (Auto) 13.4 H 3.0-13.0 % Eosinophils (%) (Auto) 1.2 0.0-8.0 % Basophils (%) (Auto) 0.6 0.0-5.0 % Neutrophils # (Auto) 4.4 1.8-7.7 K/uL Lymphocytes # (Auto) 1.7 1.0-4.8 K/uL Monocytes # (Auto) 1.0 0.1-1.0 K/uL Eosinophils # (Auto) 0.09 0.00-0.70 K/uL Basophils # (Auto) 0.04 0.00-0.20 K/uL Absolute Immature Granulocyte (auto 0.05 0-1 K/uL Urine Color YELLOW YELLOW Urine Appearance CLEAR CLEAR Urine pH 5.5 5.0-8.0 Urine Specific [place] 1.031 1.001-1.031 Urine Protein 20 H NEGATIVE mg/dL Urine Glucose (UA) 200 H NEGATIVE mg/dL Urine Ketones NEGATIVE NEGATIVE mg/dL Urine Occult Blood NEGATIVE NEGATIVE Urine Nitrate NEGATIVE NEGATIVE Urine Bilirubin 1 H NEGATIVE mg/dL Urine Urobilinogen 0.2 0.2-1.0 mg/dL Urine Leukocyte Esterase NEGATIVE NEGATIVE Therese/uL Urine RBC 2-5 H 0-1 /HPF Urine WBC 11-25 H 0-1 /HPF Urine Squamous Epithelial Cells RARE 0-2 /HPF Urine Bacteria RARE None Seen /HPF Urine Osmolality 312 50-1200 mOsm/kg Urine Random Creatinine 101.01 30-135 mg/dL Urine Random Sodium < 13 L 40-220 mmol/l Urine Opiates Screen NEGATIVE NEGATIVE Urine Barbiturates Screen NEGATIVE NEGATIVE Urine Phencyclidine Screen NEGATIVE NEGATIVE Urine Amphetamines Screen NEGATIVE NEGATIVE Urine Benzodiazepines Screen NEGATIVE NEGATIVE Urine Cocaine Screen POSITIVE H NEGATIVE Urine Marijuana (THC) Screen NEGATIVE NEGATIVE Test 07/20/24 13:57 Range/Units Prothrombin Time 12.4 H 9.6-11.6 SEC Prothromb Time International Ratio 1.16 H 0.85-1.15 Activated Partial Thromboplast Time 29.6 26.3-35.5 SEC Hemoglobin A1c 7.7 H 4.0-6.0 % Estimated Average Glucose (eAG) 174 H 70-126 mg/dL Lactic Acid Level 3.4 H 0.8-2.5 mmol/L Ferritin 671 H 30-400 ng/mL Gamma Glutamyl Transpeptidase 381 H 5-85 U/L Ammonia < 10 L 11-32 umol/L C-Reactive Protein, Quantitative 206.20 H 0.5-3.0 mg/L Ceruloplasmin 25.4 16.0-31.0 mg/dL Procalcitonin 82.65 H 0.05-0.5 ng/mL Thyroid Stimulating Hormone (TSH) 0.43 0.36-3.74 uIU/mL Acetaminophen Level 5 L 10-29 mcg/mL Serum Alcohol < 3 0-10 mg/dL Hepatitis A IgM Antibody Non-Reactive Nonreactive Hepatitis A Antibody Total Negative Negative Hepatitis B Surface Antigen. Non-Reactive Nonreactive Hepatitis B Core IgM Antibody Non-Reactive Negative Hepatitis C Antibody Non-Reactive Nonreactive HIV (1&2) Antibody Non-Reactive Negative HIV P24 Antigen, Qualitative Non-Reactive Negative Current Medications Medications (Trade) Dose Ordered Sig/Christina Route PRN Reason Start Time Stop Time Status Last Admin Dose Admin Ceftriaxone Sodium (Rocephin 2gm Inj) 2 gm Q24H IVPB 07/20/24 13:00 07/30/24 12:59 07/22/24 12:15 2 GM Chlordiazepoxide HCl (LIBrium 25 MG CAP) 25 mg Q6H PRN PO ALCOHOL WITHDRAWAL PROTOCOL 07/20/24 13:30 07/27/24 13:29 Doxycycline Hyclate 250 ml @ 125 mls/hr Q12H IV 07/20/24 13:00 07/30/24 12:59 07/22/24 12:15 125 MLS/HR Folic Acid (FOLic ACID 1 MG TABLET) 1 mg DAILY PO 07/21/24 09:00 07/23/24 09:01 07/22/24 08:43 1 MG Insulin Human Regular (humuLIN R 100 UNIT/ML 3ML) INSULIN SLIDING SCAL... ACHS SQ 07/20/24 16:30 08/19/24 16:29 07/22/24 06:30 3 UNIT Lorazepam (AtiVAN) 1 mg Q4H PRN IVP ALCOHOL WITHDRAWAL PROTOCOL 07/20/24 13:30 07/27/24 13:29 07/20/24 23:45 1 MG Ondansetron HCl (zoFRAN 4MG INJ) 4 mg Q6H PRN IVP NAUSEA/VOMITING 07/20/24 13:30 07/20/24 13:17 DC Ondansetron HCl (zoFRAN 4MG INJ) 4 mg Q6H PRN IVP NAUSEA/VOMITING 07/20/24 13:30 08/19/24 13:29 Pantoprazole Sodium (PROTonix 40MG INJ) 40 mg Q12H IVP 07/20/24 13:30 08/19/24 13:29 07/22/24 12:15 40 MG Pharmacy Profile Note (Pharmacy Communication) 1 each PROTOCOL PRN MISC ETOH Withdrawal Score changes 07/20/24 13:30 07/27/24 13:29 Potassium Chloride 100 ml @ 100 mls/hr AD PRN IV POTASSIUM PROTOCOL 07/21/24 12:00 08/20/24 11:59 Potassium Chloride (K-Dur/Klor-Con 20meq) 20 meq AD PRN PO POTASSIUM PROTOCOL 07/21/24 12:00 08/20/24 11:59 07/22/24 08:43 20 MEQ Potassium Chloride (KCl 10% Elixir 20meq/15ml) 20 meq AD PRN PO POTASSIUM PROTOCOL 07/21/24 12:00 08/20/24 11:59 Sodium Chloride 1,000 ml @ 75 mls/hr [id number] IV 07/20/24 13:00 07/22/24 09:22 DC 07/22/24 01:33 75 MLS/HR Thiamine HCl (Vitamin B-1) 200 mg Q24H IVP 07/20/24 13:00 07/24/24 13:00 07/22/24 12:15 200 MG DIAGNOSTICS / RADIOLOGY: [ ] ASSESSMENT: Severe acute hepatitis POA r/o Vibriosis, POA Acute cholecystitis rule out Severe hyponatremia, hypochloremia POA Sepsis, POA, 2/2 acute cholecystitis vs infectious Gastroenteritis, POA Concern for ischemic Hepatitis, POA Elevated lactate POA Leukocytosis POA Thrombocytopenia, POA Hyperbilirubinemia POA Acute pancreatitis POA Hx of Chronic Alcoholism, POA Cocaine abuse Hypertension Type 2 diabetes mellitus Hyperlipidemia Hx of NSTEMI, in 2021, w/ Hx of PCI, POA Hx of Dual Antiplatelet therapy as outpatient, POA Overweight BMI 29.8 s/p bariatric surgery PLAN: Patient remains admitted to the PCU Severe acute hepatitis POA r/o Acute vs Chronic Cholecystitis, POA r/o Vibriosis, POA Infectious gastroenteritis, POA Start the patient on soft diet. Advance diet as tolerated Continue supportive care with IV fluids Continue to monitor liver enzymes as well as Acute hepatitis panel and HIV panel negative Continue broad-spectrum IV antibiotics, continue to follow ID input and recommendation Follow stool studies Continue to follow CBC transfuse as needed Follow for autoimmune disease (KASSIE, ceruloplasmin, antimitochondrial antibody). Replace electrolytes IV per protocol Normal HIDA scan. MRCP shows gallstones in the gallbladder with gallbladder wall thickening common duct dilatation suggestive of acute cholecystitis in the proper clinical setting. Electrolyte imbalance; severe hyponatremia, hypochloremia POA Continue to monitor sodium level, follow Nephrology input and recommendations Elevated lactate POA Monitor lactic acid level Leukocytosis POA Thrombocytopenia, POA A.m. labs Hyperbilirubinemia POA Liver enzymes in a.m. Hx Chronic alcoholism Continue thiamine HCl 200 mg and folic acid 1 mg p.o. P.r.n. Librium 25 mg and Ativan 1 mg PRN added for alcohol withdrawal symptoms. Monitor for signs of alcohol withdrawal Hypertension Hx of CAD with prior Hx of NSTEMI in 2021 Hold statins we will reconcile home meds once available, restart aspirin if no signs of bleeding and no procedures planned Type 2 diabetes mellitus Monitor glucose a.c. and HS. Follow insulin sliding scale. Hyperglycemia and hypoglycemia protocol Disposition: The patient to be downgraded to the medical floor, results of MRCP reviewed, possible findings of acute cholecystitis, common duct is dilated measuring 8 mm, but no evidence of common duct stone. Surgical input noted and appreciated, advanced diet, monitor liver enzymes, amylase and lipase level in a.m., patient may require elective cholecystectomy as an outpatient. Discussed with the patient, all questions answered. In agreement. Total PCU time spent greater than 30 minutes. GLORIA ALCALA MD Jul 22, 2024 12:47
[2024-07-22 13:12] LABS: POTASSIUM 3.9 mmol/L (3.5-5.1)
--- NOTE | 2024-07-22 13:37 | PN ---
INFECTIOUS DISEASE PROGRESS NOTE Date of Service: Jul 22, 2024 SUBJECTIVE: Patient was seen and examined at bedside room 231. Patient is awake alert and able to answer questions appropriately. Patient is status post EUS with findings of diffuse abnormal echotexture in the visualized portion of the liver, multiple gallstones in the gallbladder body and dilatation in the entire main bile duct without choledocholithiasis. No reports of fever, temperature is 97.5 and a WBC of 5.4. The liver enzymes improving, AST 165 and ALT 516. Patient continues on ceftriaxone and doxycycline. Patient had a HIDA scan yesterday which was negative. We will continue to monitor patient. PHYSICAL EXAM EYES: Anicteric. Pupils equal and reactive. HENT: No oral thrush seen, moist Oral mucosa NECK: Supple, no JVD or thyromegaly. LUNGS: Good air entry. No rales, no rhonchi. CARDIOVASCULAR: S1, S2 regular. No murmur heard. ABDOMEN: Soft, non tender, bowel sounds present, no organomegaly CENTRAL NERVOUS SYSTEM: Awake, alert, oriented x 3. No focal deficits. SKIN: No rashes, no swelling. LYMPHATICS: No peripheral lymphadenopathy MUSCULOSKELETAL: No joint swelling, erythema or tenderness. EXTREMITIES: No cyanosis or clubbing BACK: No deformity, no pressure ulcer. GENITOURINARY: No dysuria or hematuria Vital Sign (Last 12 Hours) 07/22/24 07/22/24 07/22/24 07/22/24 04:25 07:00 07:55 11:57 Temp 98.6 97.5 98.4 Pulse 73 73 71 Resp 18 16 16 B/P (MAP) 118/81 121/86 122/60 Pulse Ox 99 96 100 100 O2 Delivery Room Air Room Air* Room Air Room Air O2 Flow Rate 0 FiO2 21 Intake & Output (last 24hrs) 07/21/24 07/21/24 07/22/24 15:00 23:00 07:00 Intake Total 0 ml 240 ml 1150.0 ml Output Total 0 ml Balance 0 ml 240 ml 1150.0 ml LABS: Laboratory: Test 07/22/24 12:36 07/22/24 11:49 07/22/24 04:00 07/21/24 06:51 Range/Units Potassium Level 3.9 3.5-5.1 mmol/L Amylase Level 54 25-115 U/L Lipase 80 H 16-77 U/L Whole Blood Glucose 152 H 70-110 MG/DL White Blood Count 5.4 # 4.8-10.8 K/uL Red Blood Count 4.01 L 4.50-6.20 MIL/uL Hemoglobin 11.5 L 14.0-18.0 g/dL Hematocrit 33.7 L 42-54 % Mean Corpuscular Volume 84.0 79-99 fL Mean Corpuscular Hemoglobin 28.7 27.0-33.0 pg Mean Corpuscular Hemoglobin Concent 34.1 32.0-36.0 g/dL Red Cell Distribution Width 11.4 11.0-15.5 % Platelet Count 123 #L 130-400 K/uL Mean Platelet Volume 12.1 H 7.5-10.5 fL Nucleated Red Blood Cells 0.0 0.0-0.19 % Sodium Level 132 L 136-145 mmol/L Chloride Level 99 L 101-111 mmol/L Carbon Dioxide Level 27 21-32 mmol/L Blood Urea Nitrogen 9 7-18 mg/dL Creatinine 0.8 0.5-1.3 mg/dL Glomerular Filtration Rate Calc 111 >90 mL/min Random Glucose 176 H 70-105 mg/dL Total Calcium 8.3 L 8.5-10.1 mg/dL Magnesium Level 1.30 L 1.6-2.6 mg/dL Total Bilirubin 2.6 H 0.2-1.0 mg/dL Aspartate Amino Transf (AST/SGOT) 165 H 10-37 U/L Alanine Aminotransferase (ALT/SGPT) 516 H 12-78 U/L Alkaline Phosphatase 148 H 50-136 U/L Total Protein 5.4 L 6.0-8.3 g/dL Albumin 2.2 L 3.5-5.0 g/dL Immature Granulocyte % (Auto) 0.7 0-1 % Neutrophils (%) (Auto) 61.1 40.0-77.0 % Lymphocytes (%) (Auto) 23.0 21.0-51.0 % Monocytes (%) (Auto) 13.4 H 3.0-13.0 % Eosinophils (%) (Auto) 1.2 0.0-8.0 % Basophils (%) (Auto) 0.6 0.0-5.0 % Neutrophils # (Auto) 4.4 1.8-7.7 K/uL Lymphocytes # (Auto) 1.7 1.0-4.8 K/uL Monocytes # (Auto) 1.0 0.1-1.0 K/uL Eosinophils # (Auto) 0.09 0.00-0.70 K/uL Basophils # (Auto) 0.04 0.00-0.20 K/uL Absolute Immature Granulocyte (auto 0.05 0-1 K/uL Test 07/20/24 14:54 07/20/24 13:57 Range/Units Urine Color YELLOW YELLOW Urine Appearance CLEAR CLEAR Urine pH 5.5 5.0-8.0 Urine Specific [place] 1.031 1.001-1.031 Urine Protein 20 H NEGATIVE mg/dL Urine Glucose (UA) 200 H NEGATIVE mg/dL Urine Ketones NEGATIVE NEGATIVE mg/dL Urine Occult Blood NEGATIVE NEGATIVE Urine Nitrate NEGATIVE NEGATIVE Urine Bilirubin 1 H NEGATIVE mg/dL Urine Urobilinogen 0.2 0.2-1.0 mg/dL Urine Leukocyte Esterase NEGATIVE NEGATIVE Therese/uL Urine RBC 2-5 H 0-1 /HPF Urine WBC 11-25 H 0-1 /HPF Urine Squamous Epithelial Cells RARE 0-2 /HPF Urine Bacteria RARE None Seen /HPF Urine Osmolality 312 50-1200 mOsm/kg Urine Random Creatinine 101.01 30-135 mg/dL Urine Random Sodium < 13 L 40-220 mmol/l Urine Opiates Screen NEGATIVE NEGATIVE Urine Barbiturates Screen NEGATIVE NEGATIVE Urine Phencyclidine Screen NEGATIVE NEGATIVE Urine Amphetamines Screen NEGATIVE NEGATIVE Urine Benzodiazepines Screen NEGATIVE NEGATIVE Urine Cocaine Screen POSITIVE H NEGATIVE Urine Marijuana (THC) Screen NEGATIVE NEGATIVE Prothrombin Time 12.4 H 9.6-11.6 SEC Prothromb Time International Ratio 1.16 H 0.85-1.15 Activated Partial Thromboplast Time 29.6 26.3-35.5 SEC Hemoglobin A1c 7.7 H 4.0-6.0 % Estimated Average Glucose (eAG) 174 H 70-126 mg/dL Lactic Acid Level 3.4 H 0.8-2.5 mmol/L Ferritin 671 H 30-400 ng/mL Gamma Glutamyl Transpeptidase 381 H 5-85 U/L Ammonia < 10 L 11-32 umol/L C-Reactive Protein, Quantitative 206.20 H 0.5-3.0 mg/L Ceruloplasmin 25.4 16.0-31.0 mg/dL Procalcitonin 82.65 H 0.05-0.5 ng/mL Thyroid Stimulating Hormone (TSH) 0.43 0.36-3.74 uIU/mL Acetaminophen Level 5 L 10-29 mcg/mL Serum Alcohol < 3 0-10 mg/dL Liver/Kidney Microsomes Antibody 0.5 0.0-20.0 Units Hepatitis A IgM Antibody Non-Reactive Nonreactive Hepatitis A Antibody Total Negative Negative Hepatitis B Surface Antigen. Non-Reactive Nonreactive Hepatitis B Core IgM Antibody Non-Reactive Negative Hepatitis C Antibody Non-Reactive Nonreactive HIV (1&2) Antibody Non-Reactive Negative HIV P24 Antigen, Qualitative Non-Reactive Negative ASSESSMENT: Positive Gram-negative bacteremia. Leukocytosis resolving. Severe hyponatremia. Thrombocytopenia. Elevated liver enzymes, may be due to shock liver, s/p EUS. Diabetes mellitus. Chronic alcoholism. Substance abuse. PLAN: Continue ceftriaxone. Continue doxycycline. Continue pain management. Continue monitoring LFT levels. Continue CIWA protocol. We will monitor electrolytes. This case was reviewed and discussed with my supervising physician and the above assessment and plan was formulated and agreed upon. ATTESTATION BY PHYSICIAN I have seen and examined the patient. I reviewed the documentation, medical decision making, and treatment plan as noted by the mid-level provider above. I agree with the findings and plan of care. DAMI HUGGINS MD, [facility] Jul 22, 2024 13:37
--- NOTE | 2024-07-22 14:14 | PN ---
GASTROENTEROLOGY PROGRESS NOTE Date of Consultation: Jul 22, 2024 Time of Consultation: 14:14 Events / Notes: No acute events overnight. LFTs trending down. Review of Systems: CONSTITUTIONAL: No malaise or change in sensation of wellbeing. ENMT: No rhinorrhea, otorrhea, sinus pain, ear ache. CARDIOVASCULAR: No angina, palpitations, orthopnea or paroxysmal dyspnea. RESPIRATORY: No SOB. GASTROINTESTINAL: No abdominal pain, nausea, vomiting, diarrhea, hematemesis, melena or change in the patient's habitual bowel movements consistency/number. GENITOURINARY: No dysuria, hematuria or change in bladder continence. MUSCULOSKELETAL: No new muscle pain or decrease in muscular strength. No new joint swelling, redness or tenderness. SKIN: No new rash. Physical Exam: GEN: Awake, alert, oriented in person, time and place, and in no acute distress. HEENT: No sinus tenderness. Tympanic membranes were not examined. No rhinorrhea. Oral pharyngeal mucosa is pink, moist and within normal limits. Neck is supple with no cervical lymphadenopathy, thyromegaly or JVD. CHEST: Inspection, palpation and percussion of the chest were unremarkable. Lung auscultation revealed normal breath sounds bilaterally. CARDIAC: PMI is within normal limits. Heart sounds are regular. Normal S1, S2. No gallop or murmur. ABD: Soft, non-tender and not distended. No peritoneal signs on palpation. No or ganomegaly. Normal bowel sounds. EXT: No cyanosis or clubbing. No edema. SKIN: Intact. No rashes. JOINTS: No evidence of synovitis or acute arthritis. NEURO: Alert and oriented to name, place and person. Cranial nerve examination is unremarkable. No focal motor deficits. Normal speech. Gait is normal. Strength is normal. Vital Signs (last 8hr) Date Time Temp Pulse Resp B/P (MAP) Pulse Ox O2 Delivery O2 Flow Rate FiO2 07/22/24 11:57 98.4 71 16 122/60 100 Room Air 07/22/24 07:55 97.5 73 16 121/86 100 Room Air 07/22/24 07:00 96 Room Air* 0 21 Laboratory: [ ] Laboratory: Test 07/22/24 12:36 07/22/24 11:49 07/22/24 04:00 07/21/24 06:51 Range/Units Potassium Level 3.9 3.5-5.1 mmol/L Amylase Level 54 25-115 U/L Lipase 80 H 16-77 U/L Whole Blood Glucose 152 H 70-110 MG/DL White Blood Count 5.4 # 4.8-10.8 K/uL Red Blood Count 4.01 L 4.50-6.20 MIL/uL Hemoglobin 11.5 L 14.0-18.0 g/dL Hematocrit 33.7 L 42-54 % Mean Corpuscular Volume 84.0 79-99 fL Mean Corpuscular Hemoglobin 28.7 27.0-33.0 pg Mean Corpuscular Hemoglobin Concent 34.1 32.0-36.0 g/dL Red Cell Distribution Width 11.4 11.0-15.5 % Platelet Count 123 #L 130-400 K/uL Mean Platelet Volume 12.1 H 7.5-10.5 fL Nucleated Red Blood Cells 0.0 0.0-0.19 % Sodium Level 132 L 136-145 mmol/L Chloride Level 99 L 101-111 mmol/L Carbon Dioxide Level 27 21-32 mmol/L Blood Urea Nitrogen 9 7-18 mg/dL Creatinine 0.8 0.5-1.3 mg/dL Glomerular Filtration Rate Calc 111 >90 mL/min Random Glucose 176 H 70-105 mg/dL Total Calcium 8.3 L 8.5-10.1 mg/dL Magnesium Level 1.30 L 1.6-2.6 mg/dL Total Bilirubin 2.6 H 0.2-1.0 mg/dL Aspartate Amino Transf (AST/SGOT) 165 H 10-37 U/L Alanine Aminotransferase (ALT/SGPT) 516 H 12-78 U/L Alkaline Phosphatase 148 H 50-136 U/L Total Protein 5.4 L 6.0-8.3 g/dL Albumin 2.2 L 3.5-5.0 g/dL Immature Granulocyte % (Auto) 0.7 0-1 % Neutrophils (%) (Auto) 61.1 40.0-77.0 % Lymphocytes (%) (Auto) 23.0 21.0-51.0 % Monocytes (%) (Auto) 13.4 H 3.0-13.0 % Eosinophils (%) (Auto) 1.2 0.0-8.0 % Basophils (%) (Auto) 0.6 0.0-5.0 % Neutrophils # (Auto) 4.4 1.8-7.7 K/uL Lymphocytes # (Auto) 1.7 1.0-4.8 K/uL Monocytes # (Auto) 1.0 0.1-1.0 K/uL Eosinophils # (Auto) 0.09 0.00-0.70 K/uL Basophils # (Auto) 0.04 0.00-0.20 K/uL Absolute Immature Granulocyte (auto 0.05 0-1 K/uL Test 07/20/24 14:54 Range/Units Urine Color YELLOW YELLOW Urine Appearance CLEAR CLEAR Urine pH 5.5 5.0-8.0 Urine Specific Dumas 1.031 1.001-1.031 Urine Protein 20 H NEGATIVE mg/dL Urine Glucose (UA) 200 H NEGATIVE mg/dL Urine Ketones NEGATIVE NEGATIVE mg/dL Urine Occult Blood NEGATIVE NEGATIVE Urine Nitrate NEGATIVE NEGATIVE Urine Bilirubin 1 H NEGATIVE mg/dL Urine Urobilinogen 0.2 0.2-1.0 mg/dL Urine Leukocyte Esterase NEGATIVE NEGATIVE Therese/uL Urine RBC 2-5 H 0-1 /HPF Urine WBC 11-25 H 0-1 /HPF Urine Squamous Epithelial Cells RARE 0-2 /HPF Urine Bacteria RARE None Seen /HPF Urine Osmolality 312 50-1200 mOsm/kg Urine Random Creatinine 101.01 30-135 mg/dL Urine Random Sodium < 13 L 40-220 mmol/l Urine Opiates Screen NEGATIVE NEGATIVE Urine Barbiturates Screen NEGATIVE NEGATIVE Urine Phencyclidine Screen NEGATIVE NEGATIVE Urine Amphetamines Screen NEGATIVE NEGATIVE Urine Benzodiazepines Screen NEGATIVE NEGATIVE Urine Cocaine Screen POSITIVE H NEGATIVE Urine Marijuana (THC) Screen NEGATIVE NEGATIVE Current Medications Medications (Trade) Dose Ordered Sig/Christina Route PRN Reason Start Time Stop Time Status Last Admin Dose Admin Ceftriaxone Sodium (Rocephin 2gm Inj) 2 gm Q24H IVPB 07/20/24 13:00 07/30/24 12:59 07/22/24 12:15 2 GM Chlordiazepoxide HCl (LIBrium 25 MG CAP) 25 mg Q6H PRN PO ALCOHOL WITHDRAWAL PROTOCOL 07/20/24 13:30 07/27/24 13:29 Doxycycline Hyclate 250 ml @ 125 mls/hr Q12H IV 07/20/24 13:00 07/30/24 12:59 07/22/24 12:15 125 MLS/HR Folic Acid (FOLic ACID 1 MG TABLET) 1 mg DAILY PO 07/21/24 09:00 07/23/24 09:01 07/22/24 08:43 1 MG Insulin Human Regular (humuLIN R 100 UNIT/ML 3ML) INSULIN SLIDING SCAL... ACHS SQ 07/20/24 16:30 08/19/24 16:29 07/22/24 06:30 3 UNIT Lorazepam (AtiVAN) 1 mg Q4H PRN IVP ALCOHOL WITHDRAWAL PROTOCOL 07/20/24 13:30 07/27/24 13:29 07/20/24 23:45 1 MG Ondansetron HCl (zoFRAN 4MG INJ) 4 mg Q6H PRN IVP NAUSEA/VOMITING 07/20/24 13:30 07/20/24 13:17 DC Ondansetron HCl (zoFRAN 4MG INJ) 4 mg Q6H PRN IVP NAUSEA/VOMITING 07/20/24 13:30 08/19/24 13:29 Pantoprazole Sodium (PROTonix 40MG INJ) 40 mg Q12H IVP 07/20/24 13:30 08/19/24 13:29 07/22/24 12:15 40 MG Pharmacy Profile Note (Pharmacy Communication) 1 each PROTOCOL PRN MISC ETOH Withdrawal Score changes 07/20/24 13:30 07/27/24 13:29 Potassium Chloride 100 ml @ 100 mls/hr AD PRN IV POTASSIUM PROTOCOL 07/21/24 12:00 08/20/24 11:59 Potassium Chloride (K-Dur/Klor-Con 20meq) 20 meq AD PRN PO POTASSIUM PROTOCOL 07/21/24 12:00 08/20/24 11:59 07/22/24 08:43 20 MEQ Potassium Chloride (KCl 10% Elixir 20meq/15ml) 20 meq AD PRN PO POTASSIUM PROTOCOL 07/21/24 12:00 08/20/24 11:59 Sodium Chloride 1,000 ml @ 75 mls/hr [id number] IV 07/20/24 13:00 07/22/24 09:22 DC 07/22/24 01:33 75 MLS/HR Thiamine HCl (Vitamin B-1) 200 mg Q24H IVP 07/20/24 13:00 07/24/24 13:00 07/22/24 12:15 200 MG Diagnostics / Radiology: [COPY/PASTE HERE IF NO REPORTS PLEASE DELETE SECTION] Assessment: Abnormal lfts, likely related to ischemic hepatopathy from cocaine use vs viral process Thrombocytopenia, concerning for cirrhosis Splenomegaly Hyponatremia Plan: Await liver serologies Patient educated on abstinence and risk of acute liver failure Patient to f/u outpatient for cirrhosis management. LYUBOV GARCIA UPHOLSTERER HELPER Jul 22, 2024 14:14
--- NOTE | 2024-07-22 18:49 | PN ---
[facility] PROGRESS NOTE Date Patient Seen: Jul 22, 2024 Time of Visit: 18:46 Supervising Physician: CAMILA GILBERT MD Primary Care Physician: Lorenzo MORENO ([facility], [facility]) Outpatient Specialists: Inpatient Consults: JAZMINE, Dr Meza, Dr Andrews,- Flako Arndt MD, Dr Pierce, Dr Akins PROBLEM LIST: Severe Sepsis with MODS, POA suspect Vibrio vulnificus (From eating raw Oysters) Severe Transaminitis, POA Electrolyte imbalance (hyponatremia, hypochloremia,) Elevated lactate POA Hepatomegaly, POA Leukocytosis POA Thrombocytopenia, POA Hyperbilirubinemia POA Acute pancreatitis POA Acute Cholecystitis without choledocholithiasis, POA History of alcoholism, POA Cocaine abuse Essential Hypertension Type 2 diabetes mellitus Hyperlipidemia TN in 2011, 2 stents Overweight BMI 29.8 s/p bariatric surgery INTERVAL HISTORY: 07/22/24 patient is doing better, well hydrated, no distress, awake and following commands denies fevers, denies chest pain still very weak less jaundice I reviewed his laboratory results, liver enzymes are trending down and bilirubin is also trending down still with epigastric pain and poor appetite REVIEW OF SYSTEMS: Const: [Yes for fever, fatigue, no weight changes] Eyes:[ no recent vision problems] ENT: [No congestion, ear pain, or sore throat] C/V: [no chest pain, palpitations or edema] Resp: [No cough, congestion, wheezing , or Shortness of breath] GI: No for abdominal pain, nausea, vomiting, no constipation, no for black sto ol. : [No incontinence of or dysuria M/S: [No joint or pain swelling] Skin: [No rash] Neuro: [no headache, focal numbness, or weakness, dizziness or seizures] Psych: [no depression or anxiety] Heme: [no abnormal bruising or bleeding] Lymph: [no swollen glands] PHYSICAL EXAM: GENERAL: alert, weak, awake oriented x 3, multiple tattoos HEENT: EOMI, Sclera icteric, moist mucosa NECK: Supple, no JVD, trachea midline LUNGS: Clear breath sounds bilaterally. No wheezes HEART: Regular rate and rhythm. Normal S1 and S2, without murmurs ABD: Abdomen soft, nontender. Bowel sounds present EXT: No clubbing cyanosis or edema, NEURO: Alert and oriented to person, follows commands Vital Signs (last 8hr) Date Time Temp Pulse Resp B/P (MAP) Pulse Ox O2 Delivery O2 Flow Rate FiO2 07/22/24 17:03 98.8 63 16 133/84 99 Room Air 07/22/24 11:57 98.4 71 16 122/60 100 Room Air LABS: Hematology Labs: Test 07/22/24 04:00 07/21/24 06:51 Range/Units White Blood Count 5.4 # 4.8-10.8 K/uL Red Blood Count 4.01 L 4.50-6.20 MIL/uL Hemoglobin 11.5 L 14.0-18.0 g/dL Hematocrit 33.7 L 42-54 % Mean Corpuscular Volume 84.0 79-99 fL Mean Corpuscular Hemoglobin 28.7 27.0-33.0 pg Mean Corpuscular Hemoglobin Concent 34.1 32.0-36.0 g/dL Red Cell Distribution Width 11.4 11.0-15.5 % Platelet Count 123 #L 130-400 K/uL Mean Platelet Volume 12.1 H 7.5-10.5 fL Nucleated Red Blood Cells 0.0 0.0-0.19 % Immature Granulocyte % (Auto) 0.7 0-1 % Neutrophils (%) (Auto) 61.1 40.0-77.0 % Lymphocytes (%) (Auto) 23.0 21.0-51.0 % Monocytes (%) (Auto) 13.4 H 3.0-13.0 % Eosinophils (%) (Auto) 1.2 0.0-8.0 % Basophils (%) (Auto) 0.6 0.0-5.0 % Neutrophils # (Auto) 4.4 1.8-7.7 K/uL Lymphocytes # (Auto) 1.7 1.0-4.8 K/uL Monocytes # (Auto) 1.0 0.1-1.0 K/uL Eosinophils # (Auto) 0.09 0.00-0.70 K/uL Basophils # (Auto) 0.04 0.00-0.20 K/uL Absolute Immature Granulocyte (auto 0.05 0-1 K/uL Chemistry Labs: Test 07/22/24 16:42 07/22/24 12:36 07/22/24 04:00 Range/Units Whole Blood Glucose 187 H 70-110 MG/DL Potassium Level 3.9 3.5-5.1 mmol/L Amylase Level 54 25-115 U/L Lipase 80 H 16-77 U/L Sodium Level 132 L 136-145 mmol/L Chloride Level 99 L 101-111 mmol/L Carbon Dioxide Level 27 21-32 mmol/L Blood Urea Nitrogen 9 7-18 mg/dL Creatinine 0.8 0.5-1.3 mg/dL Glomerular Filtration Rate Calc 111 >90 mL/min Random Glucose 176 H 70-105 mg/dL Total Calcium 8.3 L 8.5-10.1 mg/dL Magnesium Level 1.30 L 1.6-2.6 mg/dL Total Bilirubin 2.6 H 0.2-1.0 mg/dL Aspartate Amino Transf (AST/SGOT) 165 H 10-37 U/L Alanine Aminotransferase (ALT/SGPT) 516 H 12-78 U/L Alkaline Phosphatase 148 H 50-136 U/L Total Protein 5.4 L 6.0-8.3 g/dL Albumin 2.2 L 3.5-5.0 g/dL DIAGNOSTICS / RADIOLOGY RESULTS: [ ] PLAN - Repeat liver enzymes in the morning - continue with IV hydration - continue low fat diet - fall precautions NEURO: Minimize central acting medications as possible. Maintain fall precautions, adequate lighting during the day PULMONARY: Supplemental 02 as needed. Maintain aspiration precautions at all times CARDIOVASCULAR: Follow hemodynamics. Vital signs per facility protocol GI & NUTRITION: Continue with nutritional support. Continue stool softeners and laxatives as needed. KIDNEYS & ELECTROLYTES: Strict monitoring of intake, output and overall fluid balance. Avoid nephrotoxic medications to the extent possible. Medications to be dosed according to renal function. Monitor electrolytes and replace as needed ENDOCRINE: Maintain blood glucose between 100-180 at all times. Hypoglycemia protocol in place INFECTIOUS DISEASE: Trend temperature, WBC and procalcitonin level Follow cultures, deescalate antibiotics as soon as possible. Panculture if new onset fever ONCOLOGY/HEMATOLOGY/COAGULATION: Monitor for s/s of bleeding Monitor hemoglobin, coagulation studies as needed SKIN: Pressure ulcer prevention per facility protocol Specialty mattress ORTHO/REHAB: Continue PT/OT Prophylaxis: Continue GI and DVT prophylaxis Code Status: Full Resuscitation Disposition: TBD Other: Total patient care time exceeds 35 minutes excluding all procedures. ATTESTATION BY PHYSICIAN The above service was scribed by Black Meza BSc and I attest to the accuracy of the clinical note. Camila Gilbert MD I personally scribed for CAMILA GILBERT MD ([email or web address]) on 07/22/24 at 18:49. Electronically submitted by Black Meza ([email or web address]). CAMILA GILBERT MD Jul 22, 2024 18:49
[2024-07-23] VITALS (8 sets, daily range): BP systolic 111–138; BP diastolic 55–86; PULSE 68–93; RESP 17–20; TEMP 98.2–100.5; O2SAT 98–99
[2024-07-23 05:23] LABS: HEMATOCRIT 35.4 % (42-54); MEAN CORPUSCULAR HEMOGLOBIN 28.8 pg (27.0-33.0); MEAN CORPUSCULAR HGB CONC 33.1 g/dL (32.0-36.0); MEAN CORPUSCULAR VOLUME 87.2 fL (79-99); RED BLOOD CELL COUNT(AUTO) 4.06 MIL/uL (4.50-6.20); RED CELL DISTRIBUTION WIDTH 11.3 % (11.0-15.5); WHITE BLOOD COUNT (AUTO) 4.5 K/uL (4.8-10.8)
[2024-07-23 05:46] LABS: ALBUMIN 2.4 g/dL (3.5-5.0); BILIRUBIN,TOTAL 2.1 mg/dL (0.2-1.0); CREATININE 0.8 mg/dL (0.5-1.3); MAGNESIUM 1.4 mg/dL (1.80-2.40); POTASSIUM 3.8 mmol/L (3.5-5.1)
[2024-07-23 07:21] LABS: C DIFFICILE TOXIN A/B Not Detected (Not Detected); ENTEROAGGREGATIVE ECOLI Not Detected (Not Detected); GIARDIA LAMBLIA Not Detected (Not Detected); PLESIOMONAS SHIGELOIDES Not Detected (Not Detected); SAPOVIRUS Not Detected (Not Detected); SHIGELLA/ENTEROINVASIVE E COLI Not Detected (Not Detected); VIBRIO Detected (Not Detected); VIBRIO CHOLERAE Not Detected (Not Detected)
--- NOTE | 2024-07-23 11:51 | PN ---
GENERAL SURGERY PROGRESS NOTE Date/Time Patient Seen: 07/23/2024 11:20 a.m. Problem List: Right upper quadrant abdominal pain Substance abuse disorder Acute hepatitis Hyperbilirubinemia Interval History: Patient reports the pain has resolved. He is tolerating diet. Ambulating. Going to the bathroom. Current Medications Medications (Trade) Dose Ordered Sig/Christina Route Start Time Stop Time Status Last Admin Dose Admin Ceftriaxone Sodium (Rocephin 2gm Inj) 2 gm Q24H IVPB 07/20/24 13:00 07/30/24 12:59 07/22/24 12:15 2 GM Doxycycline Hyclate 250 ml @ 125 mls/hr Q12H IV 07/20/24 13:00 07/30/24 12:59 07/23/24 00:32 125 MLS/HR Folic Acid (FOLic ACID 1 MG TABLET) 1 mg DAILY PO 07/21/24 09:00 07/23/24 09:01 DC 07/23/24 08:42 1 MG Insulin Human Regular (humuLIN R 100 UNIT/ML 3ML) INSULIN SLIDING SCAL... ACHS SQ 07/20/24 16:30 08/19/24 16:29 07/22/24 21:17 5 UNIT Magnesium Sulfate 50 ml @ 0 mls/hr PROTOCOL IV 07/23/24 09:00 08/22/24 08:59 Pantoprazole Sodium (PROTonix 40MG INJ) 40 mg Q12H IVP 07/20/24 13:30 08/19/24 13:29 07/23/24 00:32 40 MG Sodium Chloride 1,000 ml @ 75 mls/hr [id number] IV 07/20/24 13:00 07/22/24 09:22 DC 07/22/24 01:33 75 MLS/HR Thiamine HCl (Vitamin B-1) 200 mg Q24H IVP 07/20/24 13:00 07/24/24 13:00 07/22/24 12:15 200 MG Physical Examination: GENERAL: No acute distress. LUNGS: Respirations nonlabored HEART: Regular rate and rhythm ABD: Soft, nondistended, nontender, no rebound, no guarding : Not examined EXT: No clubbing, cyanosis or edema. SKIN: No rashes or lesions noted. NEURO: Awake, alert, and oriented x3. No focal sensory or strength deficits noted. Vital Signs (last 8hr) Date Time Temp Pulse Resp B/P (MAP) Pulse Ox O2 Delivery O2 Flow Rate FiO2 07/23/24 08:00 98.4 68 20 124/71 99 Room Air 07/23/24 04:00 99.0 75 17 124/55 94 Room Air Laboratory: Hematology Labs: Test 07/23/24 05:20 Range/Units White Blood Count 4.5 L 4.8-10.8 K/uL Red Blood Count 4.06 L 4.50-6.20 MIL/uL Hemoglobin 11.7 L 14.0-18.0 g/dL Hematocrit 35.4 L 42-54 % Mean Corpuscular Volume 87.2 79-99 fL Mean Corpuscular Hemoglobin 28.8 27.0-33.0 pg Mean Corpuscular Hemoglobin Concent 33.1 32.0-36.0 g/dL Red Cell Distribution Width 11.3 11.0-15.5 % Platelet Count 133 130-400 K/uL Mean Platelet Volume 11.4 H 7.5-10.5 fL Nucleated Red Blood Cells 0.0 0.0-0.19 % Chemistry Labs: Test 07/23/24 11:41 07/23/24 05:20 Range/Units Whole Blood Glucose 189 H 70-110 MG/DL Sodium Level 135 L 136-145 mmol/L Potassium Level 3.8 3.5-5.1 mmol/L Chloride Level 101 101-111 mmol/L Carbon Dioxide Level 28 21-32 mmol/L Blood Urea Nitrogen 7 7-18 mg/dL Creatinine 0.8 0.5-1.3 mg/dL Glomerular Filtration Rate Calc 111 >90 mL/min Random Glucose 131 H 70-105 mg/dL Total Calcium 8.8 8.5-10.1 mg/dL Magnesium Level 1.40 L 1.80-2.40 mg/dL Total Bilirubin 2.1 H 0.2-1.0 mg/dL Aspartate Amino Transf (AST/SGOT) 60 H 10-37 U/L Alanine Aminotransferase (ALT/SGPT) 363 H 12-78 U/L Alkaline Phosphatase 206 H 50-136 U/L Total Protein 6.0 6.0-8.3 g/dL Albumin 2.4 L 3.5-5.0 g/dL Amylase Level 50 25-115 U/L Lipase 56 16-77 U/L Diagnostics / Radiology: HIDA scan showed normal filling of the gallbladder Impression and Plan: This is a 44-year-old male with hyperbilirubinemia and right upper quadrant abdominal pain likely due to acute hepatitis probably on chronic and most likely due to substance abuse and alcohol abuse. Patient is currently pain-free and tolerating diet. HIDA scan was negative. No acute operative intervention indicated. Patient should follow up with GI in the outpatient setting for further management of what is likely an underlying chronic cirrhosis. ADIS MIDDLETON DO Jul 23, 2024 11:50
--- NOTE | 2024-07-23 12:09 | PN ---
[facility] PROGRESS NOTE Date of Service: Jul 23, 2024 Time of Service: 12:06 SUBJECTIVE: The patient has been seen and examined today during my rounding, back in the room from having EGD, tolerated the procedure well, he is alert oriented x3, BP 106/63, afebrile, saturating normal on room air. He denies dizziness, no headache, no blurry vision, no chest pain, no shortness a breath, no nausea, no vomiting, no abdominal discomfort, no diarrhea, no constipation, no melena, no hematochezia, no hematemesis, no hematuria, no dysuria. 07/22 the patient has been seen and examined during my rounding, no acute events over tonight, remains hemodynamically stable, afebrile, saturating normal on room air. He is alert oriented x3, denies nausea, no vomiting, no abdominal pain. Results of liver enzymes reviewed, discussed with the patient, currently trending down, all questions answered. 07/23 the patient has been seen and examined during my rounding, comfortably in bed, no acute events overnight, getting IV fluids, no nausea, no vomiting, no abdominal pain. Results of stool studies positive for vibrio, discussed with the patient. Liver enzymes slowly, results discussed with the patient, all questions answered. REVIEW OF SYSTEMS CONSTITUTIONAL: Admits having fever. Last temp of 104 F at home yesterday with shakiness. Denies chills, or night sweats. No unintentional weight loss reported. NEUROLOGICAL: Denies headache, amaurosis fugax, motor weakness, sensory d eficit, vertigo/spinning sensation, gait abnormalities, or tremors. ENT: No hearing loss, otalgia, otorrhea, rhinitis, rhinorrhea, hoarseness, or sore throat. CARDIOVASCULAR: Denies any exertional angina, dyspnea on exertion, orthopnea, paroxysmal nocturnal dyspnea, palpitations, life-threatening arrhythmias, claudication. PULMONARY: Denies any shortness of breath, cough, phlegm/sputum, hemoptysis, pleuritic chest pain. SLEEP: Denies morning headaches, daytime somnolence or napping. Denies difficulty falling asleep, staying asleep, waking from sleep. Denies knowledge of snoring. GASTROINTESTINAL: reports having diarrhea GENITOURINARY: Denies frequency, urgency, nocturia, hematuria or incontinence (Storage/Irritative symptoms.) Low urinary stream, straining to void, urinary intermittency or hesitancy, splitting of the voiding stream, terminal dribbling. ENDOCRINOLOGIC: Denies polyuria, polydipsia, polyphagia or heat/cold intolerances. HEMATOLOGIC: Denies thrombophilia/previous clots, or coagulopathy/bleeding disorders. ONCOLOGIC: Denies personal history of malignancy. DERMATOLOGIC: Denies rashes or pruritus. PSYCHIATRIC: Denies any suicidal or homicidal ideation. Denies hallucinations. PHYSICAL EXAM GENERAL APPEARANCE: Patient appears ill and jaundiced. The patient is awake, alert, and oriented, in no acute cardiopulmonary distress. NEUROLOGICAL: Cranial nerves II-XII grossly intact. Motor is 5/5 in bilateral upper and lower extremities proximal to distal. No sensory deficits. HEENT: Positive for scleral icterus. Face is symmetric. Pupils are equal and reactive. Extraocular movements are intact. NECK: Supple. No JVD. No thyromegaly. No submental, submandibular, pre- /postauricular, occipital or supraclavicular lymphadenopathy. CHEST: Normal chest expansion. No Telemetry. LUNGS: Absence of any rales, rhonchi or any wheezing. CARDIOVASCULAR: Regular. S1 and S2 normal. No appreciable rubs, murmurs or gallops. ABDOMEN: Soft, nontender, and nondistended. There is no rebound, voluntary guarding, or rigidity. : Deferred. No Zambrano. EXTREMITIES: Non-edematous and not cyanotic. No clubbing. Good capillary refill. SKIN: No skin breakdown. Vital Signs (last 8hr) Date Time Temp Pulse Resp B/P (MAP) Pulse Ox O2 Delivery O2 Flow Rate FiO2 07/23/24 08:00 98.4 68 20 124/71 99 Room Air LABS: Laboratory: Test 07/23/24 11:41 07/23/24 05:20 Range/Units Whole Blood Glucose 189 H 70-110 MG/DL White Blood Count 4.5 L 4.8-10.8 K/uL Red Blood Count 4.06 L 4.50-6.20 MIL/uL Hemoglobin 11.7 L 14.0-18.0 g/dL Hematocrit 35.4 L 42-54 % Mean Corpuscular Volume 87.2 79-99 fL Mean Corpuscular Hemoglobin 28.8 27.0-33.0 pg Mean Corpuscular Hemoglobin Concent 33.1 32.0-36.0 g/dL Red Cell Distribution Width 11.3 11.0-15.5 % Platelet Count 133 130-400 K/uL Mean Platelet Volume 11.4 H 7.5-10.5 fL Nucleated Red Blood Cells 0.0 0.0-0.19 % Sodium Level 135 L 136-145 mmol/L Potassium Level 3.8 3.5-5.1 mmol/L Chloride Level 101 101-111 mmol/L Carbon Dioxide Level 28 21-32 mmol/L Blood Urea Nitrogen 7 7-18 mg/dL Creatinine 0.8 0.5-1.3 mg/dL Glomerular Filtration Rate Calc 111 >90 mL/min Random Glucose 131 H 70-105 mg/dL Total Calcium 8.8 8.5-10.1 mg/dL Magnesium Level 1.40 L 1.80-2.40 mg/dL Total Bilirubin 2.1 H 0.2-1.0 mg/dL Aspartate Amino Transf (AST/SGOT) 60 H 10-37 U/L Alanine Aminotransferase (ALT/SGPT) 363 H 12-78 U/L Alkaline Phosphatase 206 H 50-136 U/L Total Protein 6.0 6.0-8.3 g/dL Albumin 2.4 L 3.5-5.0 g/dL Amylase Level 50 25-115 U/L Lipase 56 16-77 U/L Current Medications Medications (Trade) Dose Ordered Sig/Christina Route PRN Reason Start Time Stop Time Status Last Admin Dose Admin Ceftriaxone Sodium (Rocephin 2gm Inj) 2 gm Q24H IVPB 07/20/24 13:00 07/30/24 12:59 07/22/24 12:15 2 GM Chlordiazepoxide HCl (LIBrium 25 MG CAP) 25 mg Q6H PRN PO ALCOHOL WITHDRAWAL PROTOCOL 07/20/24 13:30 07/27/24 13:29 Doxycycline Hyclate 250 ml @ 125 mls/hr Q12H IV 07/20/24 13:00 07/30/24 12:59 07/23/24 00:32 125 MLS/HR Folic Acid (FOLic ACID 1 MG TABLET) 1 mg DAILY PO 07/21/24 09:00 07/23/24 09:01 DC 07/23/24 08:42 1 MG Insulin Human Regular (humuLIN R 100 UNIT/ML 3ML) INSULIN SLIDING SCAL... ACHS SQ 07/20/24 16:30 08/19/24 16:29 07/22/24 21:17 5 UNIT Lorazepam (AtiVAN) 1 mg Q4H PRN IVP ALCOHOL WITHDRAWAL PROTOCOL 07/20/24 13:30 07/27/24 13:29 07/20/24 23:45 1 MG Magnesium Sulfate 50 ml @ 0 mls/hr PROTOCOL IV 07/23/24 09:00 08/22/24 08:59 Ondansetron HCl (zoFRAN 4MG INJ) 4 mg Q6H PRN IVP NAUSEA/VOMITING 07/20/24 13:30 07/20/24 13:17 DC Ondansetron HCl (zoFRAN 4MG INJ) 4 mg Q6H PRN IVP NAUSEA/VOMITING 07/20/24 13:30 08/19/24 13:29 Pantoprazole Sodium (PROTonix 40MG INJ) 40 mg Q12H IVP 07/20/24 13:30 08/19/24 13:29 07/23/24 00:32 40 MG Pharmacy Profile Note (Pharmacy Communication) 1 each PROTOCOL PRN MISC ETOH Withdrawal Score changes 07/20/24 13:30 07/27/24 13:29 Potassium Chloride 100 ml @ 100 mls/hr AD PRN IV POTASSIUM PROTOCOL 07/21/24 12:00 08/20/24 11:59 Potassium Chloride (K-Dur/Klor-Con 20meq) 20 meq AD PRN PO POTASSIUM PROTOCOL 07/21/24 12:00 08/20/24 11:59 07/23/24 08:42 20 MEQ Potassium Chloride (KCl 10% Elixir 20meq/15ml) 20 meq AD PRN PO POTASSIUM PROTOCOL 07/21/24 12:00 08/20/24 11:59 Sodium Chloride 1,000 ml @ 75 mls/hr [id number] IV 07/20/24 13:00 07/22/24 09:22 DC 07/22/24 01:33 75 MLS/HR Thiamine HCl (Vitamin B-1) 200 mg Q24H IVP 07/20/24 13:00 07/24/24 13:00 07/22/24 12:15 200 MG DIAGNOSTICS / RADIOLOGY: [ ] ASSESSMENT: Severe acute hepatitis POA Acute gastroenteritis secondary to Vibriosis, POA Acute cholecystitis rule out Severe hyponatremia, hypochloremia POA Sepsis, POA, 2/2 acute cholecystitis vs infectious Gastroenteritis, POA Concern for ischemic Hepatitis, POA Elevated lactate POA Leukocytosis POA Thrombocytopenia, POA Hyperbilirubinemia POA Acute pancreatitis POA Hx of Chronic Alcoholism, POA Cocaine abuse Hypertension Type 2 diabetes mellitus Hyperlipidemia Hx of NSTEMI, in 2021, w/ Hx of PCI, POA Hx of Dual Antiplatelet therapy as outpatient, POA Overweight BMI 29.8 s/p bariatric surgery PLAN: Patient remains admitted to the medical floor Severe acute hepatitis POA r/o Acute vs Chronic Cholecystitis, POA r/o Vibriosis, POA Infectious gastroenteritis, POA Continue supportive care with IV fluids Continue to monitor liver enzymes as well as Acute hepatitis panel and HIV panel negative Stool studies positive for vibrio, continue antibiotics, continue to follow infectious disease input and recommendations. Antimitochondrial antibody pending. Replace electrolytes IV per protocol Normal HIDA scan. MRCP shows gallstones in the gallbladder with gallbladder wall thickening common duct dilatation suggestive of acute cholecystitis in the proper clinical setting. Electrolyte imbalance; severe hyponatremia, hypochloremia POA Continue to monitor sodium level, follow Nephrology input and recommendations Elevated lactate POA Monitor lactic acid level Leukocytosis POA Thrombocytopenia, POA A.m. labs Hyperbilirubinemia POA Liver enzymes in a.m. Hx Chronic alcoholism Continue thiamine HCl 200 mg and folic acid 1 mg p.o. P.r.n. Librium 25 mg and Ativan 1 mg PRN added for alcohol withdrawal symptoms. Monitor for signs of alcohol withdrawal Hypertension Hx of CAD with prior Hx of NSTEMI in 2021 Hold statins we will reconcile home meds once available, restart aspirin if no signs of bleeding and no procedures planned Type 2 diabetes mellitus Monitor glucose a.c. and HS. Follow insulin sliding scale. Hyperglycemia and hypoglycemia protocol Disposition: The patient to be downgraded to the medical floor, results of MRCP reviewed, possible findings of acute cholecystitis, common duct is dilated measuring 8 mm, but no evidence of common duct stone. Surgical input noted and appreciated, advanced diet, monitor liver enzymes, amylase and lipase level in a.m., patient may require elective cholecystectomy as an outpatient. Stool studies positive for vibrio, continue antibiotics. A.m. labs. Anticipate discharge home in the next 24 hours. Plan of action discussed with the patient, all questions answered, agreed and understood the information provided. GLORIA ALCALA MD Jul 23, 2024 12:09
[2024-07-23] MEDS: PoTASSium chloRIDE 20MEQ ER 20 MEQ ERTAB PO ONE (12:55)
--- NOTE | 2024-07-23 14:40 | PN ---
INFECTIOUS DISEASE PROGRESS NOTE Date of Service: Jul 23, 2024 SUBJECTIVE: This 44 year old male patient is being seen today at bedside. He is awake, alert and oriented x3. He denies chest pain or shortness of breath. No nausea or vomiting. Patient continues on antibiotics tolerating well. States he's doing well. Concerns and questions were answered at this time. PHYSICAL EXAM EYES: Anicteric. Pupils equal and reactive. HENT: No oral thrush seen, moist Oral mucosa NECK: Supple, no JVD or thyromegaly. LUNGS: Good air entry. No rales, no rhonchi. CARDIOVASCULAR: S1, S2 regular. No murmur heard. ABDOMEN: Soft, non tender, bowel sounds present, no organomegaly CENTRAL NERVOUS SYSTEM: Awake, alert, oriented x 3. No focal deficits. SKIN: No rashes, no swelling. LYMPHATICS: No peripheral lymphadenopathy MUSCULOSKELETAL: No joint swelling, erythema or tenderness. EXTREMITIES: No cyanosis or clubbing BACK: No deformity, no pressure ulcer. GENITOURINARY: No dysuria or hematuria Vital Sign (Last 12 Hours) 07/23/24 07/23/24 07/23/24 04:00 08:00 12:00 Temp 99.0 98.4 98.2 Pulse 75 68 85 Resp 17 20 20 B/P (MAP) 124/55 124/71 111/68 Pulse Ox 94 99 100 O2 Delivery Room Air Room Air Room Air Intake & Output (last 24hrs) 07/22/24 07/22/24 07/23/24 15:00 23:00 07:00 Intake Total 960 ml 240 ml 780.0 ml Output Total 700 ml Balance 960 ml 240 ml 80.0 ml LABS: Laboratory: Test 07/23/24 11:41 07/23/24 05:20 Range/Units Whole Blood Glucose 189 H 70-110 MG/DL White Blood Count 4.5 L 4.8-10.8 K/uL Red Blood Count 4.06 L 4.50-6.20 MIL/uL Hemoglobin 11.7 L 14.0-18.0 g/dL Hematocrit 35.4 L 42-54 % Mean Corpuscular Volume 87.2 79-99 fL Mean Corpuscular Hemoglobin 28.8 27.0-33.0 pg Mean Corpuscular Hemoglobin Concent 33.1 32.0-36.0 g/dL Red Cell Distribution Width 11.3 11.0-15.5 % Platelet Count 133 130-400 K/uL Mean Platelet Volume 11.4 H 7.5-10.5 fL Nucleated Red Blood Cells 0.0 0.0-0.19 % Sodium Level 135 L 136-145 mmol/L Potassium Level 3.8 3.5-5.1 mmol/L Chloride Level 101 101-111 mmol/L Carbon Dioxide Level 28 21-32 mmol/L Blood Urea Nitrogen 7 7-18 mg/dL Creatinine 0.8 0.5-1.3 mg/dL Glomerular Filtration Rate Calc 111 >90 mL/min Random Glucose 131 H 70-105 mg/dL Total Calcium 8.8 8.5-10.1 mg/dL Magnesium Level 1.40 L 1.80-2.40 mg/dL Total Bilirubin 2.1 H 0.2-1.0 mg/dL Aspartate Amino Transf (AST/SGOT) 60 H 10-37 U/L Alanine Aminotransferase (ALT/SGPT) 363 H 12-78 U/L Alkaline Phosphatase 206 H 50-136 U/L Total Protein 6.0 6.0-8.3 g/dL Albumin 2.4 L 3.5-5.0 g/dL Amylase Level 50 25-115 U/L Lipase 56 16-77 U/L ASSESSMENT: Acute cholecystitis, ruled out Sepsis Leukocytosis resolving. Severe hyponatremia. Thrombocytopenia. Elevated liver enzymes, may be due to shock liver, s/p EUS. Diabetes mellitus. Chronic alcoholism. Substance abuse. PLAN: Continue ceftriaxone. Continue doxycycline. Continue pain management. Continue monitoring LFT levels. Continue CIWA protocol. We will monitor electrolytes. This case was reviewed and discussed with my supervising physician and the above assessment and plan was formulated and agreed upon. EFREN ZARATE [employer] OPERATOR Jul 23, 2024 14:40
--- NOTE | 2024-07-23 16:35 | PN ---
SUBJECTIVE: A 44-year-old male initially presented to the hospital with acute renal failure. The patient with a history of known substance abuse. The patient also with elevated liver function tests. The patient is positive for cocaine in the urine and he is being seen as a followup visit for all of the above. REVIEW OF SYSTEMS: GENERAL: He is feeling improved. HEENT: No change in vision. No change in hearing. CARDIOVASCULAR: There is no current chest pain or palpitations. PULMONARY: No shortness of breath. GASTROINTESTINAL: The patient is tolerating a diet. MUSCULOSKELETAL: Complains of weakness. PHYSICAL EXAMINATION: VITAL SIGNS: Blood pressure 124/71, pulse 60s. GENERAL: Chronically ill male, lying in bed in the medical floor. HEENT: Head is atraumatic. Pupils are equal, roving to light. Oropharynx is without exudate. Nares clear. NECK: There is no JVP. There is no thyromegaly, no mass. CARDIOVASCULAR: Regular. There is no S3, S4 gallop. LUNGS: Coarse with equal thoracic movement. ABDOMEN: Soft, nondistended, nontender. EXTREMITIES: Reveal no clubbing, no cyanosis. NEUROLOGICAL: He is awake. He is alert. LABORATORY DATA: Sodium 135, potassium 3.8, BUN 7, creatinine 0.8. LFTs are all noted. Hemoglobin 11, hematocrit 35. IMPRESSION: 1. Acute renal failure. 2. Electrolyte abnormalities. 3. Substance abuse. 4. Hypertension. PLAN: The patient's renal function is improved. The patient's serum sodium has also improved. LFTs are also slowly improving. The patient can safely be discharged from a renal standpoint. I did discuss with the patient in regard to cessation of all alcohol and drug abuse upon discharge. We will continue to follow closely. Once the patient is discharged, he can follow up in the [facility]. TID: [id number] RECEIPT: [id number]
--- NOTE | 2024-07-23 17:51 | PN ---
[facility] PROGRESS NOTE Date Patient Seen: Jul 23, 2024 Time of Visit: 17:51 Supervising Physician: [Dr. Simms] Primary Care Physician: Lorenzo MORENO ([facility], [facility]) Outpatient Specialists: Inpatient Consults: JAZMINE, Dr Meza, Dr Andrews,- Flako Arndt MD, Dr Pierce, Dr Akins PROBLEM LIST: Severe Sepsis with MODS, POA Vibriosis (From eating raw Oysters) Severe Transaminitis, POA, improved Electrolyte imbalance (hyponatremia, hypochloremia,) improved Elevated lactate POA Hepatomegaly, POA Leukocytosis POA Thrombocytopenia, POA Hyperbilirubinemia POA Acute pancreatitis POA Acute Cholecystitis without choledocholithiasis, POA History of alcoholism, POA Cocaine abuse Essential Hypertension Type 2 diabetes mellitus Hyperlipidemia [place] in 2011, 2 stents Overweight BMI 29.8 s/p bariatric surgery INTERVAL HISTORY: Blood pressure is 111/68 with a heart rate of , afebrile on room air. His WBCs are much improved currently at 4.5. Continues on antibiotics with Rocephin and doxycycline per ID. His stool culture was positive for rubeosis. His LFTs are significantly improved since admission. Creatinine is improved to 0.8. No current electrolyte derangement. Bilirubin is improved from 5.9-2.1 and is downtrending. HIV/hepatitis screening negative. Blood and urine cultures are negative. Patient has weaned off of supplemental oxygen on room air. No surgery planned after HIDA scan was negative for acute cholecystitis. Thank you for this interesting consult. BIS will sign off, please reconsult as needed. REVIEW OF SYSTEMS: Const: [Yes for fever, fatigue, no weight changes] Eyes:[ no recent vision problems] ENT: [No congestion, ear pain, or sore throat] C/V: [no chest pain, palpitations or edema] Resp: [No cough, congestion, wheezing , or Shortness of breath] GI: No for abdominal pain, nausea, vomiting, no constipation, no for black stool. : [No incontinence of or dysuria M/S: [No joint or pain swelling] Skin: [No rash] Neuro: [no headache, focal numbness, or weakness, dizziness or seizures] Psych: [no depression or anxiety] Heme: [no abnormal bruising or bleeding] Lymph: [no swollen glands] PHYSICAL EXAM: GENERAL: alert, weak, awake oriented x 3, multiple tattoos HEENT: EOMI, Sclera icteric, moist mucosa NECK: Supple, no JVD, trachea midline LUNGS: Clear breath sounds bilaterally. No wheezes HEART: Regular rate and rhythm. Normal S1 and S2, without murmurs ABD: Abdomen soft, nontender. Bowel sounds present EXT: No clubbing cyanosis or edema, NEURO: Alert and oriented to person, follows commands Vital Signs (last 8hr) Date Time Temp Pulse Resp B/P (MAP) Pulse Ox O2 Delivery O2 Flow Rate FiO2 07/23/24 16:00 98.4 86 20 138/81 100 Room Air 07/23/24 12:00 98.2 85 20 111/68 100 Room Air LABS: Hematology Labs: Test 07/23/24 05:20 Range/Units White Blood Count 4.5 L 4.8-10.8 K/uL Red Blood Count 4.06 L 4.50-6.20 MIL/uL Hemoglobin 11.7 L 14.0-18.0 g/dL Hematocrit 35.4 L 42-54 % Mean Corpuscular Volume 87.2 79-99 fL Mean Corpuscular Hemoglobin 28.8 27.0-33.0 pg Mean Corpuscular Hemoglobin Concent 33.1 32.0-36.0 g/dL Red Cell Distribution Width 11.3 11.0-15.5 % Platelet Count 133 130-400 K/uL Mean Platelet Volume 11.4 H 7.5-10.5 fL Nucleated Red Blood Cells 0.0 0.0-0.19 % Chemistry Labs: Test 07/23/24 16:08 07/23/24 05:20 Range/Units Whole Blood Glucose 252 H 70-110 MG/DL Sodium Level 135 L 136-145 mmol/L Potassium Level 3.8 3.5-5.1 mmol/L Chloride Level 101 101-111 mmol/L Carbon Dioxide Level 28 21-32 mmol/L Blood Urea Nitrogen 7 7-18 mg/dL Creatinine 0.8 0.5-1.3 mg/dL Glomerular Filtration Rate Calc 111 >90 mL/min Random Glucose 131 H 70-105 mg/dL Total Calcium 8.8 8.5-10.1 mg/dL Magnesium Level 1.40 L 1.80-2.40 mg/dL Total Bilirubin 2.1 H 0.2-1.0 mg/dL Aspartate Amino Transf (AST/SGOT) 60 H 10-37 U/L Alanine Aminotransferase (ALT/SGPT) 363 H 12-78 U/L Alkaline Phosphatase 206 H 50-136 U/L Total Protein 6.0 6.0-8.3 g/dL Albumin 2.4 L 3.5-5.0 g/dL Amylase Level 50 25-115 U/L Lipase 56 16-77 U/L DIAGNOSTICS / RADIOLOGY RESULTS: NM HIDA WO EF/CCK REASON: R/O ACUTE CHOLECYSTITIS. COMPARISON: None TECHNIQUE: Hepatobiliary imaging study was performed with Choletec through intravenous route. FINDINGS: There is normal visualization of gallbladder activity and bowel activity at 1 hour. IMPRESSION: Normal hepatobiliary imaging study. PLAN - Continue current management, abx per ID - continue with IV hydration - continue low fat diet - fall precautions NEURO: Minimize central acting medications as possible. Maintain fall precautions, adequate lighting during the day PULMONARY: Supplemental 02 as needed. Maintain aspiration precautions at all times CARDIOVASCULAR: Follow hemodynamics. Vital signs per facility protocol GI & NUTRITION: Continue with nutritional support. Continue stool softeners and laxatives as needed. KIDNEYS & ELECTROLYTES: Strict monitoring of intake, output and overall fluid balance. Avoid nephrotoxic medications to the extent possible. Medications to be dosed according to renal function. Monitor electrolytes and replace as needed ENDOCRINE: Maintain blood glucose between 100-180 at all times. Hypoglycemia protocol in place INFECTIOUS DISEASE: Trend temperature, WBC and procalcitonin level Follow cultures, deescalate antibiotics as soon as possible. Panculture if new onset fever ONCOLOGY/HEMATOLOGY/COAGULATION: Monitor for s/s of bleeding Monitor hemoglobin, coagulation studies as needed SKIN: Pressure ulcer prevention per facility protocol Specialty mattress ORTHO/REHAB: Continue PT/OT Prophylaxis: Continue GI and DVT prophylaxis Code Status: Full Resuscitation Disposition: TBD Other: Total patient care time exceeds 35 minutes excluding all procedures. ATTESTATION BY PHYSICIAN The above service was scribed by GLENNY Coxc and I attest to the accuracy of the clinical note. Leroy Loera MD, MARCUS A PA Jul 23, 2024 17:51
[2024-07-23] MEDS: acetaMINOPHEN 500 MG TABLET PO ONE ×2 (19:42→21:39)
[2024-07-23] MEDS: MAGNESIUM 2GM PREMIX 50ML 50 ML IV SCH (20:20)
[2024-07-24] VITALS (7 sets, daily range): BP systolic 95–139; BP diastolic 61–87; PULSE 85–101; RESP 16–20; TEMP 99.1–103.3; O2SAT 93
[2024-07-24] MEDS: acetaMINOPHEN 500 MG TABLET PO PRN (04:02)
[2024-07-24 05:42] LABS: HEMATOCRIT 36.1 % (42-54); MEAN CORPUSCULAR HEMOGLOBIN 28.5 pg (27.0-33.0); MEAN CORPUSCULAR HGB CONC 33.5 g/dL (32.0-36.0); MEAN CORPUSCULAR VOLUME 85.1 fL (79-99); RED BLOOD CELL COUNT(AUTO) 4.24 MIL/uL (4.50-6.20); RED CELL DISTRIBUTION WIDTH 11.7 % (11.0-15.5); WHITE BLOOD COUNT (AUTO) 4.9 K/uL (4.8-10.8)
[2024-07-24 06:02] LABS: ALBUMIN 2.8 g/dL (3.5-5.0); BILIRUBIN,TOTAL 1.6 mg/dL (0.2-1.0); CREATININE 0.9 mg/dL (0.5-1.3); MAGNESIUM 1.7 mg/dL (1.80-2.40); POTASSIUM 3.9 mmol/L (3.5-5.1); TOTAL PROTEIN, SERUM 6.7 g/dL (6.0-8.3)
--- NOTE | 2024-07-24 11:37 | PN ---
[facility] PROGRESS NOTE Date of Service: Jul 24, 2024 Time of Service: 11:34 SUBJECTIVE: The patient has been seen and examined today during my rounding, back in the room from having EGD, tolerated the procedure well, he is alert oriented x3, BP 106/63, afebrile, saturating normal on room air. He denies dizziness, no headache, no blurry vision, no chest pain, no shortness a breath, no nausea, no vomiting, no abdominal discomfort, no diarrhea, no constipation, no melena, no hematochezia, no hematemesis, no hematuria, no dysuria. 07/22 the patient has been seen and examined during my rounding, no acute events over tonight, remains hemodynamically stable, afebrile, saturating normal on room air. He is alert oriented x3, denies nausea, no vomiting, no abdominal tati n. Results of liver enzymes reviewed, discussed with the patient, currently trending down, all questions answered. 07/23 the patient has been seen and examined during my rounding, comfortably in bed, no acute events overnight, getting IV fluids, no nausea, no vomiting, no abdominal pain. Results of stool studies positive for vibrio, discussed with the patient. Liver enzymes slowly, results discussed with the patient, all questions answered. 07/24 the patient has been seen and examined during my rounding, comfortably in bed, he remains alert oriented x3, according to him he had one episode of solid stool yesterday, after the stools has been watery, more than seven episodes. The patient is still spiking fever. He denied chest pain, no shortness a breath, no nausea, no vomiting, no abdominal pain. He is currently on regular diet, tolerating well. REVIEW OF SYSTEMS CONSTITUTIONAL: Admits having fever. Last temp of 104 F at home yesterday with shakiness. Denies chills, or night sweats. No unintentional weight loss reported. NEUROLOGICAL: Denies headache, amaurosis fugax, motor weakness, sensory deficit, vertigo/spinning sensation, gait abnormalities, or tremors. ENT: No hearing loss, otalgia, otorrhea, rhinitis, rhinorrhea, hoarseness, or sore throat. CARDIOVASCULAR: Denies any exertional angina, dyspnea on exertion, orthopnea, paroxysmal nocturnal dyspnea, palpitations, life-threatening arrhythmias, claudication. PULMONARY: Denies any shortness of breath, cough, phlegm/sputum, hemoptysis, pleuritic chest pain. SLEEP: Denies morning headaches, daytime somnolence or napping. Denies diffic ulty falling asleep, staying asleep, waking from sleep. Denies knowledge of snoring. GASTROINTESTINAL: reports having diarrhea GENITOURINARY: Denies frequency, urgency, nocturia, hematuria or incontinence (Storage/Irritative symptoms.) Low urinary stream, straining to void, urinary intermittency or hesitancy, splitting of the voiding stream, terminal dribbling. ENDOCRINOLOGIC: Denies polyuria, polydipsia, polyphagia or heat/cold intolerances. HEMATOLOGIC: Denies thrombophilia/previous clots, or coagulopathy/bleeding disorders. ONCOLOGIC: Denies personal history of malignancy. DERMATOLOGIC: Denies rashes or pruritus. PSYCHIATRIC: Denies any suicidal or homicidal ideation. Denies hallucinations. PHYSICAL EXAM GENERAL APPEARANCE: Patient appears ill and jaundiced. The patient is awake, alert, and oriented, in no acute cardiopulmonary distress. NEUROLOGICAL: Cranial nerves II-XII grossly intact. Motor is 5/5 in bilateral upper and lower extremities proximal to distal. No sensory deficits. HEENT: Positive for scleral icterus. Face is symmetric. Pupils are equal and reactive. Extraocular movements are intact. NECK: Supple. No JVD. No thyromegaly. No submental, submandibular, pre- /postauricular, occipital or supraclavicular lymphadenopathy. CHEST: Normal chest expansion. No Telemetry. LUNGS: Absence of any rales, rhonchi or any wheezing. CARDIOVASCULAR: Regular. S1 and S2 normal. No appreciable rubs, murmurs or gallops. ABDOMEN: Soft, nontender, and nondistended. There is no rebound, voluntary guarding, or rigidity. : Deferred. No Zambrano. EXTREMITIES: Non-edematous and not cyanotic. No clubbing. Good capillary refill. SKIN: No skin breakdown. Vital Signs (last 8hr) Date Time Temp Pulse Resp B/P (MAP) Pulse Ox O2 Delivery O2 Flow Rate FiO2 07/24/24 10:23 102.9 07/24/24 04:02 102.9 07/24/24 04:00 103.3 93 16 134/87 95 Room Air 21 07/24/24 04:00 99.1 101 16 139/69 98 Room Air 21 LABS: Laboratory: Test 07/24/24 05:12 07/24/24 05:11 07/23/24 17:52 07/23/24 05:20 Range/Units White Blood Count 4.9 4.8-10.8 K/uL Red Blood Count 4.24 L 4.50-6.20 MIL/uL Hemoglobin 12.1 L 14.0-18.0 g/dL Hematocrit 36.1 L 42-54 % Mean Corpuscular Volume 85.1 79-99 fL Mean Corpuscular Hemoglobin 28.5 27.0-33.0 pg Mean Corpuscular Hemoglobin Concent 33.5 32.0-36.0 g/dL Red Cell Distribution Width 11.7 11.0-15.5 % Platelet Count 146 130-400 K/uL Mean Platelet Volume 11.6 H 7.5-10.5 fL Nucleated Red Blood Cells 0.0 0.0-0.19 % Sodium Level 131 L 136-145 mmol/L Potassium Level 3.9 3.5-5.1 mmol/L Chloride Level 97 L 101-111 mmol/L Carbon Dioxide Level 27 21-32 mmol/L Blood Urea Nitrogen 5 L 7-18 mg/dL Creatinine 0.9 0.5-1.3 mg/dL Glomerular Filtration Rate Calc 107 >90 mL/min Random Glucose 184 H 70-105 mg/dL Total Calcium 8.7 8.5-10.1 mg/dL Magnesium Level 1.70 L 1.80-2.40 mg/dL Total Bilirubin 1.6 #H 0.2-1.0 mg/dL Aspartate Amino Transf (AST/SGOT) 49 H 10-37 U/L Alanine Aminotransferase (ALT/SGPT) 286 #H 12-78 U/L Alkaline Phosphatase 246 H 50-136 U/L Total Protein 6.7 6.0-8.3 g/dL Albumin 2.8 L 3.5-5.0 g/dL Whole Blood Glucose 164 H 70-110 MG/DL Stool Occult Blood POSITIVE H NEGATIVE Amylase Level 50 25-115 U/L Lipase 56 16-77 U/L Current Medications Medications (Trade) Dose Ordered Sig/Christina Route PRN Reason Start Time Stop Time Status Last Admin Dose Admin Acetaminophen (TYLenol 500MG TAB) 500 mg Q6H PRN PO PAIN/FEVER 07/23/24 21:30 08/22/24 21:29 07/24/24 10:23 500 MG Ceftriaxone Sodium (Rocephin 2gm Inj) 2 gm Q24H IVPB 07/20/24 13:00 07/30/24 12:59 07/23/24 13:08 2 GM Chlordiazepoxide HCl (LIBrium 25 MG CAP) 25 mg Q6H PRN PO ALCOHOL WITHDRAWAL PROTOCOL 07/20/24 13:30 07/27/24 13:29 Doxycycline Hyclate 250 ml @ 125 mls/hr Q12H IV 07/20/24 13:00 07/30/24 12:59 07/24/24 00:02 125 MLS/HR Folic Acid (FOLic ACID 1 MG TABLET) 1 mg DAILY PO 07/21/24 09:00 07/23/24 09:01 DC 07/23/24 08:42 1 MG Insulin Human Regular (humuLIN R 100 UNIT/ML 3ML) INSULIN SLIDING SCAL... ACHS SQ 07/20/24 16:30 08/19/24 16:29 07/23/24 20:21 2 UNIT Lorazepam (AtiVAN) 1 mg Q4H PRN IVP ALCOHOL WITHDRAWAL PROTOCOL 07/20/24 13:30 07/27/24 13:29 07/20/24 23:45 1 MG Magnesium Sulfate 50 ml @ 0 mls/hr PROTOCOL IV 07/24/24 07:30 08/23/24 07:29 Magnesium Sulfate 50 ml @ 0 mls/hr PROTOCOL IV 07/23/24 09:00 07/24/24 07:17 DC 07/24/24 06:15 25 MLS/HR Ondansetron HCl (zoFRAN 4MG INJ) 4 mg Q6H PRN IVP NAUSEA/VOMITING 07/20/24 13:30 07/20/24 13:17 DC Ondansetron HCl (zoFRAN 4MG INJ) 4 mg Q6H PRN IVP NAUSEA/VOMITING 07/20/24 13:30 08/19/24 13:29 Pantoprazole Sodium (PROTonix 40MG INJ) 40 mg Q12H IVP 07/20/24 13:30 08/19/24 13:29 07/24/24 00:02 40 MG Pharmacy Profile Note (Pharmacy Communication) 1 each PROTOCOL PRN MISC ETOH Withdrawal Score changes 07/20/24 13:30 07/27/24 13:29 Potassium Chloride 100 ml @ 100 mls/hr AD PRN IV POTASSIUM PROTOCOL 07/21/24 12:00 08/20/24 11:59 Potassium Chloride (K-Dur/Klor-Con 20meq) 20 meq AD PRN PO POTASSIUM PROTOCOL 07/21/24 12:00 08/20/24 11:59 07/23/24 08:42 20 MEQ Potassium Chloride (KCl 10% Elixir 20meq/15ml) 20 meq AD PRN PO POTASSIUM PROTOCOL 07/21/24 12:00 08/20/24 11:59 Sodium Chloride 1,000 ml @ 75 mls/hr [id number] IV 07/20/24 13:00 07/22/24 09:22 DC 07/22/24 01:33 75 MLS/HR Thiamine HCl (Vitamin B-1) 200 mg Q24H IVP 07/20/24 13:00 07/24/24 13:00 07/23/24 13:08 200 MG DIAGNOSTICS / RADIOLOGY: [ ] ASSESSMENT: Severe acute hepatitis POA Acute gastroenteritis secondary to Vibriosis, POA Acute cholecystitis rule out Severe hyponatremia, hypochloremia POA Sepsis, POA, 2/2 acute cholecystitis vs infectious Gastroenteritis, POA Concern for ischemic Hepatitis, POA Elevated lactate POA Leukocytosis POA Thrombocytopenia, POA Hyperbilirubinemia POA Acute pancreatitis POA Hx of Chronic Alcoholism, POA Cocaine abuse Hypertension Type 2 diabetes mellitus Hyperlipidemia Hx of NSTEMI, in 2021, w/ Hx of PCI, POA Hx of Dual Antiplatelet therapy as outpatient, POA Overweight BMI 29.8 s/p bariatric surgery PLAN: Patient remains admitted to the medical floor Severe acute hepatitis POA r/o Acute vs Chronic Cholecystitis, POA r/o Vibriosis, POA Infectious gastroenteritis, POA Continue supportive care with IV fluids Continue to monitor liver enzymes as well as Acute hepatitis panel and HIV panel negative Stool studies positive for vibrio, continue antibiotics, continue to follow infectious disease input and recommendations. Antimitochondrial antibody pending. Replace electrolytes IV per protocol Normal HIDA scan. MRCP shows gallstones in the gallbladder with gallbladder wall thickening common duct dilatation suggestive of acute cholecystitis in the proper clinical sett ing. HIDA scan is unremarkable. Electrolyte imbalance; severe hyponatremia, hypochloremia POA Continue to monitor sodium level, follow Nephrology input and recommendations Elevated lactate POA Monitor lactic acid level Leukocytosis POA Thrombocytopenia, POA A.m. labs Hyperbilirubinemia POA Liver enzymes in a.m. Hx Chronic alcoholism Continue thiamine HCl 200 mg and folic acid 1 mg p.o. P.r.n. Librium 25 mg and Ativan 1 mg PRN added for alcohol withdrawal symptoms. Monitor for signs of alcohol withdrawal Hypertension Hx of CAD with prior Hx of NSTEMI in 2021 Continue to monitor adjust BP as needed Type 2 diabetes mellitus Monitor glucose a.c. and HS. Follow insulin sliding scale. Hyperglycemia and hypoglycemia protocol Disposition: The patient remains admitted to the medical floor, results of MRCP reviewed, possible findings of acute cholecystitis, common duct is dilated measuring 8 mm, but no evidence of common duct stone. HIDA scan is unremarkable. Patient is still spiking fever, continue broad-spectrum antibiotics, continue to follow liver enzymes in a.m.. Follow infectious disease input and recommendations. Plan of action discussed with the patient, all questions answered, agreed and understood the information provided. GLORIA ALCALA MD Jul 24, 2024 11:37
--- NOTE | 2024-07-24 12:27 | PN ---
SUBJECTIVE: A 44-year-old male with history of known substance abuse. The patient initially presented with acute renal failure as well as multiple electrolyte abnormalities. The patient with significant hyponatremia and the patient is being seen as a followup visit for all of the above. The patient has been complaining of some diarrhea overnight as well as some abdominal pain. The patient was noted to have underlying fevers overnight and remains on the antibiotics and the patient is being seen for all of the above. REVIEW OF SYSTEMS: GENERAL: He is feeling weak and tired. HEENT: No change in vision. No change in hearing. CARDIOVASCULAR: No current chest pain or palpitations. PULMONARY: No shortness of breath. GASTROINTESTINAL: He had previously been tolerating a diet. MUSCULOSKELETAL: Complaining of weakness. PHYSICAL EXAMINATION: VITAL SIGNS: Blood pressure 139/69, T-max 103 degrees. GENERAL: He is a chronically ill male, older than appearing. HEENT: Head is atraumatic. Pupils equal, roving to light. Oropharynx is without exudate. Nares clear. NECK: There is no JVP. There is no thyromegaly, no mass. CARDIOVASCULAR: Regular. There is no S3, S4 gallop. LUNGS: Coarse with equal thoracic movement. ABDOMEN: Soft, nondistended, nontender. EXTREMITIES: Reveal no clubbing, no cyanosis. NEUROLOGIC: He is awake. He is alert. LABORATORY DATA: Hemoglobin 12, hematocrit 36. Sodium 131, potassium 3.9, BUN 5, creatinine 0.9. IMPRESSION: * Renal dysfunction. * Electrolyte abnormalities. * Substance abuse. * Diabetes mellitus. PLAN: The patient's creatinine is much improved. The patient's serum sodium is noted. He is encouraged to continue with his fluid restriction. The patient now with fevers overnight and workup is ongoing per the primary team. We will continue to follow closely. All labs can be repeated in the morning. TID: [id number] RECEIPT: [id number]
--- NOTE | 2024-07-24 12:28 | HMCIMG ---
INDICATION: fever TECHNIQUE: CHEST 1VW COMPARISON: 07/20/2024 FINDINGS/IMPRESSION: Prominent bilateral interstitial markings which may represent bronchitis or vascular congestion in the proper clinical setting. Cardiac silhouette is within normal limits. Mild degenerative changes of the spine. The visualized upper abdomen appears unremarkable.
--- NOTE | 2024-07-24 12:36 | HMCIMG ---
CT CHEST W/O CONTRAST HISTORY: R/O PNEUM. TECHNIQUE: CT CHEST W/O CONTRAST. Coronal and sagittal reformats were obtained. CT was performed with one or more of the following dose reduction techniques: Automated exposure control, adjustment of the mA and/or kV according to the patient's size, or use of the iterative reconstruction technique. FINDINGS: The noncontrast nature this study limits evaluation of the mediastinal structures. Mild focal infiltrate versus atelectasis seen in the lateral right upper lobe. Correlate clinically. There is no pleural effusion or pneumothorax. The heart is normal in size. No pericardial effusion. There is atherosclerotic changes of the aorta and coronary arteries. Gallstones are seen with underdistention versus mild gallbladder wall thickening. Postoperative gastric sleeve are noted. Degenerative changes of the spine are noted. IMPRESSION: Mild focal infiltrate versus atelectasis seen in the lateral right upper lobe. Correlate clinically. There is no pleural effusion or pneumothorax. Cholelithiasis with underdistention versus mild gallbladder thickening. Correlate with ultrasound..
[2024-07-24 15:31] LABS: RAPID GROUP A STREP negative (NEGATIVE)
[2024-07-24 15:41] LABS: INFLUENZA TYPE B Negative For Type B (NEGATIVE)
[2024-07-24 15:57] LABS: COVID19 (SARS ANTIGEN RAPID) PRESUMPTIVE NEGATIVE (NEGATIVE)
[2024-07-24 16:08] LABS: INFLUENZA TYPE A Positive For Type A (NEGATIVE)
[2024-07-24 17:45] LABS: ADD UA MICROSCOPIC YES; APPEARANCE,URINE CLEAR (CLEAR); BILIRUBIN,URINE NEGATIVE (NEGATIVE); COLOR,URINE LIGHT-YELLOW (YELLOW); GLUCOSE, URINE (UA) 300 mg/dL (NEGATIVE); KETONES,URINE NEGATIVE (NEGATIVE); LEUKOCYTE ESTERASE ,URINE NEGATIVE Leu/uL (NEGATIVE); NITRATE,URINE NEGATIVE (NEGATIVE); OCCULT BLOOD,URINE NEGATIVE (NEGATIVE); PROTEIN,URINE NEGATIVE (NEGATIVE); UROBILINOGEN,URINE 0.2 mg/dL (0.2-1.0)
[2024-07-24 17:46] LABS: RBC,URINE 0-1 /HPF (0-1); SQUAMOUS EPITHELIAL CELL,UR RARE /HPF (0-2); WBC,URINE 0-1 /HPF (0-1)
[2024-07-24] MEDS: LACTOBACILLUS RHAMNOSUS GG 1 EACH CAP.SPRINK PO SCH (20:03)
[2024-07-24] MEDS: OSELTAMIVIR PHOSPHATE 75 MG CAP PO SCH (20:03)
[2024-07-24] MEDS: ZOSYN 3.375GM +NS 50ML IVPB SCH (20:04)
[2024-07-25] VITALS (10 sets, daily range): BP systolic 95–109; BP diastolic 61–74; PULSE 80–89; RESP 20; TEMP 98.6–102; O2SAT 99–100
[2024-07-25] MEDS: MAGNESIUM 2GM PREMIX 50ML 50 ML IV SCH (06:30)
--- NOTE | 2024-07-25 12:23 | PN ---
FOLLOWUP PROGRESS NOTE SUBJECTIVE: A 44-year-old male initially presented with acute renal failure. The patient also with history of substance abuse. The patient with positive influenza. He has had acute on chronic renal dysfunction in the hospital. The patient's creatinine has been elevated. He is being seen for all of the above. REVIEW OF SYSTEMS: GENERAL: He is feeling improved overnight. HEENT: No change in vision. No change in hearing. CARDIOVASCULAR: No current chest pains or palpitations. PULMONARY: No shortness of breath. GASTROINTESTINAL: He is tolerating a diet. MUSCULOSKELETAL: Complains of weakness. PHYSICAL EXAMINATION: VITAL SIGNS: Blood pressure 109/74, pulse in the 80s. GENERAL: He is a chronically ill male, young, lying in bed on the medical floor. HEENT: Head is atraumatic. Pupils equal, roving to light. Oropharynx is without exudate. Nares clear. NECK: There is no JVP. There is no thyromegaly, no mass. CARDIOVASCULAR: Regular. There is no S3, S4 gallop. LUNGS: Coarse with equal thoracic movement. ABDOMEN: Soft, nondistended, nontender. EXTREMITIES: Reveal no clubbing, no cyanosis. NEUROLOGIC: He is awake. He is alert. LABORATORY DATA: Sodium 131, potassium 3.9, BUN 5, creatinine 0.9. Hemoglobin 12, hematocrit 36. IMPRESSION: * Acute on chronic renal failure. * History of substance abuse. * Hypertension. * Anemia. * Electrolyte abnormalities. PLAN: The patient continues with underlying renal dysfunction. Labs are all noted. The patient's creatinine has remained fairly stable. He is encouraged with the fluid restriction for the hyponatremia. The patient has been encouraged in regards to cessation from all of his drug abuse. Once the patient is discharged, he can follow up in the [facility]. TID: [id number] RECEIPT: [id number]
--- NOTE | 2024-07-25 13:44 | PN ---
GASTROENTEROLOGY PROGRESS NOTE Date of Consultation: Jul 25, 2024 Time of Consultation: 13:43 Events / Notes: No acute events overnight. LFTs trending down. Review of Systems: CONSTITUTIONAL: No malaise or change in sensation of wellbeing. ENMT: No rhinorrhea, otorrhea, sinus pain, ear ache. CARDIOVASCULAR: No angina, palpitations, orthopnea or paroxysmal dyspnea. RESPIRATORY: No SOB. GASTROINTESTINAL: No abdominal pain, nausea, vomiting, diarrhea, hematemesis, melena or change in the patient's habitual bowel movements consistency/number. GENITOURINARY: No dysuria, hematuria or change in bladder continence. MUSCULOSKELETAL: No new muscle pain or decrease in muscular strength. No new joint swelling, redness or tenderness. SKIN: No new rash. Physical Exam: GEN: Awake, alert, oriented in person, time and place, and in no acute distress. HEENT: No sinus tenderness. Tympanic membranes were not examined. No rhinorrhea. Oral pharyngeal mucosa is pink, moist and within normal limits. Neck is supple with no cervical lymphadenopathy, thyromegaly or JVD. CHEST: Inspection, palpation and percussion of the chest were unremarkable. Lung auscultation revealed normal breath sounds bilaterally. CARDIAC: PMI is within normal limits. Heart sounds are regular. Normal S1, S2. No gallop or murmur. ABD: Soft, non-tender and not distended. No peritoneal signs on palpation. No o rganomegaly. Normal bowel sounds. EXT: No cyanosis or clubbing. No edema. SKIN: Intact. No rashes. JOINTS: No evidence of synovitis or acute arthritis. NEURO: Alert and oriented to name, place and person. Cranial nerve examination is unremarkable. No focal motor deficits. Normal speech. Gait is normal. Strength is normal. Vital Signs (last 8hr) Date Time Temp Pulse Resp B/P (MAP) Pulse Ox O2 Delivery O2 Flow Rate FiO2 07/25/24 11:39 99.9 87 20 109/74 100 Room Air 21 07/25/24 10:20 98.8 07/25/24 08:00 100 Room Air* 0 21 07/25/24 07:00 99.0 80 20 95/67 100 Room Air 21 Laboratory: [ ] Laboratory: Test 07/25/24 12:18 07/25/24 04:22 07/24/24 17:30 07/24/24 15:00 Range/Units Whole Blood Glucose 217 H 70-110 MG/DL Magnesium Level 1.70 L 1.80-2.40 mg/dL Urine Color LIGHT-YELLOW YELLOW Urine Appearance CLEAR CLEAR Urine pH 6.0 5.0-8.0 Urine Specific Meherrin 1.014 1.001-1.031 Urine Protein NEGATIVE NEGATIVE mg/dL Urine Glucose (UA) 300 H NEGATIVE mg/dL Urine Ketones NEGATIVE NEGATIVE mg/dL Urine Occult Blood NEGATIVE NEGATIVE Urine Nitrate NEGATIVE NEGATIVE Urine Bilirubin NEGATIVE NEGATIVE mg/dL Urine Urobilinogen 0.2 0.2-1.0 mg/dL Urine Leukocyte Esterase NEGATIVE NEGATIVE Therese/uL Urine RBC 0-1 0-1 /HPF Urine WBC 0-1 0-1 /HPF Urine Squamous Epithelial Cells RARE 0-2 /HPF Urine Bacteria None None Seen /HPF Influenza Type A Antigen Positive For Type A *A NEGATIVE Influenza Type B Antigen Negative For Type B NEGATIVE SARS-CoV-2 Antigen (Rapid) PRESUMPTIVE NEGATIVE NEGATIVE Group A Streptococcus Rapid negative NEGATIVE Test 07/24/24 05:12 07/23/24 17:52 Range/Units White Blood Count 4.9 4.8-10.8 K/uL Red Blood Count 4.24 L 4.50-6.20 MIL/uL Hemoglobin 12.1 L 14.0-18.0 g/dL Hematocrit 36.1 L 42-54 % Mean Corpuscular Volume 85.1 79-99 fL Mean Corpuscular Hemoglobin 28.5 27.0-33.0 pg Mean Corpuscular Hemoglobin Concent 33.5 32.0-36.0 g/dL Red Cell Distribution Width 11.7 11.0-15.5 % Platelet Count 146 130-400 K/uL Mean Platelet Volume 11.6 H 7.5-10.5 fL Nucleated Red Blood Cells 0.0 0.0-0.19 % Sodium Level 131 L 136-145 mmol/L Potassium Level 3.9 3.5-5.1 mmol/L Chloride Level 97 L 101-111 mmol/L Carbon Dioxide Level 27 21-32 mmol/L Blood Urea Nitrogen 5 L 7-18 mg/dL Creatinine 0.9 0.5-1.3 mg/dL Glomerular Filtration Rate Calc 107 >90 mL/min Random Glucose 184 H 70-105 mg/dL Total Calcium 8.7 8.5-10.1 mg/dL Total Bilirubin 1.6 #H 0.2-1.0 mg/dL Aspartate Amino Transf (AST/SGOT) 49 H 10-37 U/L Alanine Aminotransferase (ALT/SGPT) 286 #H 12-78 U/L Alkaline Phosphatase 246 H 50-136 U/L Total Protein 6.7 6.0-8.3 g/dL Albumin 2.8 L 3.5-5.0 g/dL Stool Occult Blood POSITIVE H NEGATIVE Current Medications Medications (Trade) Dose Ordered Sig/Christina Route PRN Reason Start Time Stop Time Status Last Admin Dose Admin Acetaminophen (TYLenol 500MG TAB) 500 mg Q6H PRN PO PAIN/FEVER 07/23/24 21:30 08/22/24 21:29 07/25/24 03:23 500 MG Ceftriaxone Sodium (Rocephin 2gm Inj) 2 gm Q24H IVPB 07/20/24 13:00 07/24/24 14:11 DC 07/24/24 12:20 2 GM Chlordiazepoxide HCl (LIBrium 25 MG CAP) 25 mg Q6H PRN PO ALCOHOL WITHDRAWAL PROTOCOL 07/20/24 13:30 07/27/24 13:29 Doxycycline Hyclate 250 ml @ 125 mls/hr Q12H IV 07/20/24 13:00 07/30/24 12:59 07/25/24 12:39 125 MLS/HR Folic Acid (FOLic ACID 1 MG TABLET) 1 mg DAILY PO 07/21/24 09:00 07/23/24 09:01 DC 07/23/24 08:42 1 MG Insulin Human Regular (humuLIN R 100 UNIT/ML 3ML) INSULIN SLIDING SCAL... ACHS SQ 07/20/24 16:30 08/19/24 16:29 07/25/24 12:55 3 UNIT Lactobacillus Rhamnosus ([facility] [employer] Try It On) 1 each BID PO 07/24/24 21:00 08/23/24 20:59 07/25/24 09:02 1 EACH Lorazepam (AtiVAN) 1 mg Q4H PRN IVP ALCOHOL WITHDRAWAL PROTOCOL 07/20/24 13:30 07/27/24 13:29 07/20/24 23:45 1 MG Magnesium Sulfate 50 ml @ 0 mls/hr PROTOCOL IV 07/24/24 07:30 08/23/24 07:29 07/25/24 06:30 25 MLS/HR Magnesium Sulfate 50 ml @ 0 mls/hr PROTOCOL IV 07/23/24 09:00 07/24/24 07:17 DC 07/24/24 06:15 25 MLS/HR Ondansetron HCl (zoFRAN 4MG INJ) 4 mg Q6H PRN IVP NAUSEA/VOMITING 07/20/24 13:30 07/20/24 13:17 DC Ondansetron HCl (zoFRAN 4MG INJ) 4 mg Q6H PRN IVP NAUSEA/VOMITING 07/20/24 13:30 08/19/24 13:29 Oseltamivir Phosphate (Tamiflu) 75 mg BID PO 07/24/24 21:00 07/29/24 20:59 07/25/24 09:02 75 MG Pantoprazole Sodium (PROTonix 40MG INJ) 40 mg Q12H IVP 07/20/24 13:30 08/19/24 13:29 07/25/24 12:39 40 MG Pharmacy Profile Note (Pharmacy Communication) 1 each PROTOCOL PRN MISC ETOH Withdrawal Score changes 07/20/24 13:30 07/27/24 13:29 Piperacillin Sod/ Tazobactam Sod (Zosyn 3.375gm+NS 50ml) 3.375 gm Q8H IVPB 07/24/24 19:30 08/03/24 19:29 07/25/24 12:39 3.375 GM Potassium Chloride 100 ml @ 100 mls/hr AD PRN IV POTASSIUM PROTOCOL 07/21/24 12:00 08/20/24 11:59 Potassium Chloride (K-Dur/Klor-Con 20meq) 20 meq AD PRN PO POTASSIUM PROTOCOL 07/21/24 12:00 08/20/24 11:59 07/23/24 08:42 20 MEQ Potassium Chloride (KCl 10% Elixir 20meq/15ml) 20 meq AD PRN PO POTASSIUM PROTOCOL 07/21/24 12:00 08/20/24 11:59 Sodium Chloride 1,000 ml @ 75 mls/hr [id number] IV 07/20/24 13:00 07/22/24 09:22 DC 07/22/24 01:33 75 MLS/HR Thiamine HCl (Vitamin B-1) 200 mg Q24H IVP 07/20/24 13:00 07/24/24 13:00 DC 07/24/24 12:20 200 MG Diagnostics / Radiology: [COPY/PASTE HERE IF NO REPORTS PLEASE DELETE SECTION] Assessment: Abnormal lfts, likely related to ischemic hepatopathy from cocaine use vs viral process Thrombocytopenia, concerning for cirrhosis Splenomegaly Hyponatremia Plan: Await liver serologies Patient educated on abstinence and risk of acute liver failure Patient to f/u outpatient for cirrhosis management. LYUBOV GARCIA SHEAR SCRAPMAN Jul 25, 2024 13:44
--- NOTE | 2024-07-25 15:26 | PN ---
INFECTIOUS DISEASE PROGRESS NOTE Date of Service: Jul 25, 2024 SUBJECTIVE: This 44 year old male patient was seen and examined at bedside in room 313. Patient is awake, alert and oriented x3. Patient is currently on Tamiflu for influenza viral infection type A. No dyspnea observe and patient is saturating 100% on room air. Ambulates well without getting short of breath. Vibrio was detected on the stool specimen. Ceftriaxone was discontinued patient was started on Zosyn IV every 8 hours. No reports nausea or vomiting. Liver enzymes continue to improve. We will continue to monitor patient. PHYSICAL EXAM EYES: Anicteric. Pupils equal and reactive. HENT: No oral thrush seen, moist Oral mucosa NECK: Supple, no JVD or thyromegaly. LUNGS: Good air entry. No rales, no rhonchi. CARDIOVASCULAR: S1, S2 regular. No murmur heard. ABDOMEN: Soft, non tender, bowel sounds present, no organomegaly CENTRAL NERVOUS SYSTEM: Awake, alert, oriented x 3. No focal deficits. SKIN: No rashes, no swelling. LYMPHATICS: No peripheral lymphadenopathy MUSCULOSKELETAL: No joint swelling, erythema or tenderness. EXTREMITIES: No cyanosis or clubbing BACK: No deformity, no pressure ulcer. GENITOURINARY: No dysuria or hematuria Vital Sign (Last 12 Hours) 07/25/24 07/25/24 07/25/24 07/25/24 03:23 03:30 05:10 07:00 Temp 102.0 102.0 99.9 99.0 Pulse 83 80 Resp 20 20 B/P (MAP) 96/63 95/67 Pulse Ox 100 100 O2 Delivery Room Air Room Air FiO2 21 07/25/24 07/25/24 07/25/24 08:00 10:20 11:39 Temp 98.8 99.9 Pulse 87 Resp 20 B/P (MAP) 109/74 Pulse Ox 100 100 O2 Delivery Room Air* Room Air O2 Flow Rate 0 FiO2 21 21 Intake & Output (last 24hrs) 07/24/24 07/24/24 07/25/24 15:00 23:00 07:00 Intake Total 1000 ml 360 ml Output Total 1250 ml 800 ml 800 ml Balance -1250 ml 200 ml -440 ml LABS: Laboratory: Test 07/25/24 12:18 07/25/24 04:22 07/24/24 17:30 07/24/24 15:00 Range/Units Whole Blood Glucose 217 H 70-110 MG/DL Magnesium Level 1.70 L 1.80-2.40 mg/dL Urine Color LIGHT-YELLOW YELLOW Urine Appearance CLEAR CLEAR Urine pH 6.0 5.0-8.0 Urine Specific [place] 1.014 1.001-1.031 Urine Protein NEGATIVE NEGATIVE mg/dL Urine Glucose (UA) 300 H NEGATIVE mg/dL Urine Ketones NEGATIVE NEGATIVE mg/dL Urine Occult Blood NEGATIVE NEGATIVE Urine Nitrate NEGATIVE NEGATIVE Urine Bilirubin NEGATIVE NEGATIVE mg/dL Urine Urobilinogen 0.2 0.2-1.0 mg/dL Urine Leukocyte Esterase NEGATIVE NEGATIVE Therese/uL Urine RBC 0-1 0-1 /HPF Urine WBC 0-1 0-1 /HPF Urine Squamous Epithelial Cells RARE 0-2 /HPF Urine Bacteria None None Seen /HPF Influenza Type A Antigen Positive For Type A *A NEGATIVE Influenza Type B Antigen Negative For Type B NEGATIVE SARS-CoV-2 Antigen (Rapid) PRESUMPTIVE NEGATIVE NEGATIVE Group A Streptococcus Rapid negative NEGATIVE Test 07/24/24 05:12 07/23/24 17:52 Range/Units White Blood Count 4.9 4.8-10.8 K/uL Red Blood Count 4.24 L 4.50-6.20 MIL/uL Hemoglobin 12.1 L 14.0-18.0 g/dL Hematocrit 36.1 L 42-54 % Mean Corpuscular Volume 85.1 79-99 fL Mean Corpuscular Hemoglobin 28.5 27.0-33.0 pg Mean Corpuscular Hemoglobin Concent 33.5 32.0-36.0 g/dL Red Cell Distribution Width 11.7 11.0-15.5 % Platelet Count 146 130-400 K/uL Mean Platelet Volume 11.6 H 7.5-10.5 fL Nucleated Red Blood Cells 0.0 0.0-0.19 % Sodium Level 131 L 136-145 mmol/L Potassium Level 3.9 3.5-5.1 mmol/L Chloride Level 97 L 101-111 mmol/L Carbon Dioxide Level 27 21-32 mmol/L Blood Urea Nitrogen 5 L 7-18 mg/dL Creatinine 0.9 0.5-1.3 mg/dL Glomerular Filtration Rate Calc 107 >90 mL/min Random Glucose 184 H 70-105 mg/dL Total Calcium 8.7 8.5-10.1 mg/dL Total Bilirubin 1.6 #H 0.2-1.0 mg/dL Aspartate Amino Transf (AST/SGOT) 49 H 10-37 U/L Alanine Aminotransferase (ALT/SGPT) 286 #H 12-78 U/L Alkaline Phosphatase 246 H 50-136 U/L Total Protein 6.7 6.0-8.3 g/dL Albumin 2.8 L 3.5-5.0 g/dL Stool Occult Blood POSITIVE H NEGATIVE ASSESSMENT: Influenza viral infection type A. Cholelithiasis. Sepsis Leukocytosis resolved. Hyponatremia, resolving. Thrombocytopenia, resolving. Elevated liver enzymes, may be due to shock liver, s/p EUS. Diabetes mellitus. Chronic alcoholism. Substance abuse. PLAN: Discontinue ceftriaxone. Start Zosyn 3.375 g IV every8 hours. Continue doxycycline. Continue Tamiflu. Continue GI prophylaxis. Continue pain management. Continue monitoring LFT levels. Continue CIWA protocol. We will monitor electrolytes. This case was reviewed and discussed with my supervising physician and the above assessment and plan was formulated and agreed upon. ATTESTATION BY PHYSICIAN I have seen and examined the patient. I reviewed the documentation, medical decision making, and treatment plan as noted by the mid-level provider above. I agree with the findings and plan of care. DAMI HUGGINS MD, [facility] Jul 25, 2024 15:26
--- NOTE | 2024-07-25 16:27 | PN ---
[facility] PROGRESS NOTE Date of Service: Jul 25, 2024 Time of Service: 16:21 SUBJECTIVE: The patient has been seen and examined today during my rounding, back in the room from having EGD, tolerated the procedure well, he is alert oriented x3, BP 106/63, afebrile, saturating normal on room air. He denies dizziness, no headache, no blurry vision, no chest pain, no shortness a breath, no nausea, no vomiting, no abdominal discomfort, no diarrhea, no constipation, no melena, no hematochezia, no hematemesis, no hematuria, no dysuria. 07/22 the patient has been seen and examined during my rounding, no acute events over tonight, remains hemodynamically stable, afebrile, saturating normal on room air. He is alert oriented x3, denies nausea, no vomiting, no abdominal tati n. Results of liver enzymes reviewed, discussed with the patient, currently trending down, all questions answered. 07/23 the patient has been seen and examined during my rounding, comfortably in bed, no acute events overnight, getting IV fluids, no nausea, no vomiting, no abdominal pain. Results of stool studies positive for vibrio, discussed with the patient. Liver enzymes slowly, results discussed with the patient, all questions answered. 07/24 the patient has been seen and examined during my rounding, comfortably in bed, he remains alert oriented x3, according to him he had one episode of solid stool yesterday, after the stools has been watery, more than seven episodes. The patient is still spiking fever. He denied chest pain, no shortness a breath, no nausea, no vomiting, no abdominal pain. He is currently on regular diet, tolerating well. 07/25 Pt seen at bedside, no acute events overnight. Ceftriaxone discontinued, Zosyn started. C. Diff panel pending. Further care per ID. REVIEW OF SYSTEMS CONSTITUTIONAL: Admits having fever. Last temp of 104 F at home yesterday with shakiness. Denies chills, or night sweats. No unintentional weight loss reported. NEUROLOGICAL: Denies headache, amaurosis fugax, motor weakness, sensory deficit, vertigo/spinning sensation, gait abnormalities, or tremors. ENT: No hearing loss, otalgia, otorrhea, rhinitis, rhinorrhea, hoarseness, or sore throat. CARDIOVASCULAR: Denies any exertional angina, dyspnea on exertion, orthopnea, paroxysmal nocturnal dyspnea, palpitations, life-threatening arrhythmias, claudication. PULMONARY: Denies any shortness of breath, cough, phlegm/sputum, hemoptysis, pleuritic chest pain. SLEEP: Denies morning headaches, daytime somnolence or napping. Denies difficulty falling asleep, staying asleep, waking from sleep. Denies knowledge of snoring. GASTROINTESTINAL: reports having diarrhea GENITOURINARY: Denies frequency, urgency, nocturia, hematuria or incontinence (Storage/Irritative symptoms.) Low urinary stream, straining to void, urinary intermittency or hesitancy, splitting of the voiding stream, terminal dribbling. ENDOCRINOLOGIC: Denies polyuria, polydipsia, polyphagia or heat/cold intolerances. HEMATOLOGIC: Denies thrombophilia/previous clots, or coagulopathy/bleeding disorders. ONCOLOGIC: Denies personal history of malignancy. DERMATOLOGIC: Denies rashes or pruritus. PSYCHIATRIC: Denies any suicidal or homicidal ideation. Denies hallucinations. PHYSICAL EXAM GENERAL APPEARANCE: Patient appears ill and jaundiced. The patient is awake, alert, and oriented, in no acute cardiopulmonary distress. NEUROLOGICAL: Cranial nerves II-XII grossly intact. Motor is 5/5 in bilateral upper and lower extremities proximal to distal. No sensory deficits. HEENT: Positive for scleral icterus. Face is symmetric. Pupils are equal and reactive. Extraocular movements are intact. NECK: Supple. No JVD. No thyromegaly. No submental, submandibular, pre- /postauricular, occipital or supraclavicular lymphadenopathy. CHEST: Normal chest expansion. No Telemetry. LUNGS: Absence of any rales, rhonchi or any wheezing. CARDIOVASCULAR: Regular. S1 and S2 normal. No appreciable rubs, murmurs or gallops. ABDOMEN: Soft, nontender, and nondistended. There is no rebound, voluntary guarding, or rigidity. : Deferred. No Zambrano. EXTREMITIES: Non-edematous and not cyanotic. No clubbing. Good capillary refill. SKIN: No skin breakdown. Vital Signs (last 8hr) Date Time Temp Pulse Resp B/P (MAP) Pulse Ox O2 Delivery O2 Flow Rate FiO2 07/25/24 11:39 99.9 87 20 109/74 100 Room Air 07/25/24 10:20 98.8 LABS: Laboratory: Test 07/25/24 16:07 07/25/24 04:22 07/24/24 17:30 07/24/24 15:00 Range/Units Whole Blood Glucose 207 H 70-110 MG/DL Magnesium Level 1.70 L 1.80-2.40 mg/dL Urine Color LIGHT-YELLOW YELLOW Urine Appearance CLEAR CLEAR Urine pH 6.0 5.0-8.0 Urine Specific [place] 1.014 1.001-1.031 Urine Protein NEGATIVE NEGATIVE mg/dL Urine Glucose (UA) 300 H NEGATIVE mg/dL Urine Ketones NEGATIVE NEGATIVE mg/dL Urine Occult Blood NEGATIVE NEGATIVE Urine Nitrate NEGATIVE NEGATIVE Urine Bilirubin NEGATIVE NEGATIVE mg/dL Urine Urobilinogen 0.2 0.2-1.0 mg/dL Urine Leukocyte Esterase NEGATIVE NEGATIVE Therese/uL Urine RBC 0-1 0-1 /HPF Urine WBC 0-1 0-1 /HPF Urine Squamous Epithelial Cells RARE 0-2 /HPF Urine Bacteria None None Seen /HPF Influenza Type A Antigen Positive For Type A *A NEGATIVE Influenza Type B Antigen Negative For Type B NEGATIVE SARS-CoV-2 Antigen (Rapid) PRESUMPTIVE NEGATIVE NEGATIVE Group A Streptococcus Rapid negative NEGATIVE Test 07/24/24 05:12 07/23/24 17:52 Range/Units White Blood Count 4.9 4.8-10.8 K/uL Red Blood Count 4.24 L 4.50-6.20 MIL/uL Hemoglobin 12.1 L 14.0-18.0 g/dL Hematocrit 36.1 L 42-54 % Mean Corpuscular Volume 85.1 79-99 fL Mean Corpuscular Hemoglobin 28.5 27.0-33.0 pg Mean Corpuscular Hemoglobin Concent 33.5 32.0-36.0 g/dL Red Cell Distribution Width 11.7 11.0-15.5 % Platelet Count 146 130-400 K/uL Mean Platelet Volume 11.6 H 7.5-10.5 fL Nucleated Red Blood Cells 0.0 0.0-0.19 % Sodium Level 131 L 136-145 mmol/L Potassium Level 3.9 3.5-5.1 mmol/L Chloride Level 97 L 101-111 mmol/L Carbon Dioxide Level 27 21-32 mmol/L Blood Urea Nitrogen 5 L 7-18 mg/dL Creatinine 0.9 0.5-1.3 mg/dL Glomerular Filtration Rate Calc 107 >90 mL/min Random Glucose 184 H 70-105 mg/dL Total Calcium 8.7 8.5-10.1 mg/dL Total Bilirubin 1.6 #H 0.2-1.0 mg/dL Aspartate Amino Transf (AST/SGOT) 49 H 10-37 U/L Alanine Aminotransferase (ALT/SGPT) 286 #H 12-78 U/L Alkaline Phosphatase 246 H 50-136 U/L Total Protein 6.7 6.0-8.3 g/dL Albumin 2.8 L 3.5-5.0 g/dL Stool Occult Blood POSITIVE H NEGATIVE Current Medications Medications (Trade) Dose Ordered Sig/Christina Route PRN Reason Start Time Stop Time Status Last Admin Dose Admin Acetaminophen (TYLenol 500MG TAB) 500 mg Q6H PRN PO PAIN/FEVER 07/23/24 21:30 08/22/24 21:29 07/25/24 03:23 500 MG Ceftriaxone Sodium (Rocephin 2gm Inj) 2 gm Q24H IVPB 07/20/24 13:00 07/24/24 14:11 DC 07/24/24 12:20 2 GM Chlordiazepoxide HCl (LIBrium 25 MG CAP) 25 mg Q6H PRN PO ALCOHOL WITHDRAWAL PROTOCOL 07/20/24 13:30 07/27/24 13:29 Doxycycline Hyclate 250 ml @ 125 mls/hr Q12H IV 07/20/24 13:00 07/30/24 12:59 07/25/24 12:39 125 MLS/HR Folic Acid (FOLic ACID 1 MG TABLET) 1 mg DAILY PO 07/21/24 09:00 07/23/24 09:01 DC 07/23/24 08:42 1 MG Insulin Human Regular (humuLIN R 100 UNIT/ML 3ML) INSULIN SLIDING SCAL... ACHS SQ 07/20/24 16:30 08/19/24 16:29 07/25/24 12:55 3 UNIT Lactobacillus Rhamnosus ([facility]) 1 each BID PO 07/24/24 21:00 08/23/24 20:59 07/25/24 09:02 1 EACH Lorazepam (AtiVAN) 1 mg Q4H PRN IVP ALCOHOL WITHDRAWAL PROTOCOL 07/20/24 13:30 07/27/24 13:29 07/20/24 23:45 1 MG Magnesium Sulfate 50 ml @ 0 mls/hr PROTOCOL IV 07/24/24 07:30 08/23/24 07:29 07/25/24 06:30 25 MLS/HR Magnesium Sulfate 50 ml @ 0 mls/hr PROTOCOL IV 07/23/24 09:00 07/24/24 07:17 DC 07/24/24 06:15 25 MLS/HR Ondansetron HCl (zoFRAN 4MG INJ) 4 mg Q6H PRN IVP NAUSEA/VOMITING 07/20/24 13:30 07/20/24 13:17 DC Ondansetron HCl (zoFRAN 4MG INJ) 4 mg Q6H PRN IVP NAUSEA/VOMITING 07/20/24 13:30 08/19/24 13:29 Oseltamivir Phosphate (Tamiflu) 75 mg BID PO 07/24/24 21:00 07/29/24 20:59 07/25/24 09:02 75 MG Pantoprazole Sodium (PROTonix 40MG INJ) 40 mg Q12H IVP 07/20/24 13:30 08/19/24 13:29 07/25/24 12:39 40 MG Pharmacy Profile Note (Pharmacy Communication) 1 each PROTOCOL PRN MISC ETOH Withdrawal Score changes 07/20/24 13:30 07/27/24 13:29 Piperacillin Sod/ Tazobactam Sod (Zosyn 3.375gm+NS 50ml) 3.375 gm Q8H IVPB 07/24/24 19:30 08/03/24 19:29 07/25/24 12:39 3.375 GM Potassium Chloride 100 ml @ 100 mls/hr AD PRN IV POTASSIUM PROTOCOL 07/21/24 12:00 08/20/24 11:59 Potassium Chloride (K-Dur/Klor-Con 20meq) 20 meq AD PRN PO POTASSIUM PROTOCOL 07/21/24 12:00 08/20/24 11:59 07/23/24 08:42 20 MEQ Potassium Chloride (KCl 10% Elixir 20meq/15ml) 20 meq AD PRN PO POTASSIUM PROTOCOL 07/21/24 12:00 08/20/24 11:59 Sodium Chloride 1,000 ml @ 75 mls/hr [id number] IV 07/20/24 13:00 07/22/24 09:22 DC 07/22/24 01:33 75 MLS/HR Thiamine HCl (Vitamin B-1) 200 mg Q24H IVP 07/20/24 13:00 07/24/24 13:00 DC 07/24/24 12:20 200 MG DIAGNOSTICS / RADIOLOGY: [ ] ASSESSMENT: Severe acute hepatitis POA Acute gastroenteritis secondary to Vibriosis, POA Acute cholecystitis rule out Severe hyponatremia, hypochloremia POA Sepsis, POA, 2/2 acute cholecystitis vs infectious Gastroenteritis, POA Concern for ischemic Hepatitis, POA Elevated lactate POA Leukocytosis POA Thrombocytopenia, POA Hyperbilirubinemia POA Acute pancreatitis POA Hx of Chronic Alcoholism, POA Cocaine abuse Hypertension Type 2 diabetes mellitus Hyperlipidemia Hx of NSTEMI, in 2021, w/ Hx of PCI, POA Hx of Dual Antiplatelet therapy as outpatient, POA Overweight BMI 29.8 s/p bariatric surgery PLAN: Patient remains admitted to the medical floor Severe acute hepatitis POA r/o Acute vs Chronic Cholecystitis, POA r/o Vibriosis, POA Infectious gastroenteritis, POA Continue supportive care with IV fluids Continue to monitor liver enzymes as well as Acute hepatitis panel and HIV panel negative Stool studies positive for vibrio, continue antibiotics, continue to follow infectious disease input and recommendations. Antimitochondrial antibody pending. Replace electrolytes IV per protocol Normal HIDA scan. MRCP shows gallstones in the gallbladder with gallbladder wall thickening common duct dilatation suggestive of acute cholecystitis in the proper clinical setting. HIDA scan is unremarkable. Electrolyte imbalance; severe hyponatremia, hypochloremia POA Continue to monitor sodium level, follow Nephrology input and recommendations Elevated lactate POA Monitor lactic acid level Leukocytosis POA Thrombocytopenia, POA A.m. labs Hyperbilirubinemia POA Liver enzymes in a.m. Hx Chronic alcoholism Continue thiamine HCl 200 mg and folic acid 1 mg p.o. P.r.n. Librium 25 mg and Ativan 1 mg PRN added for alcohol withdrawal symptoms. Monitor for signs of alcohol withdrawal Hypertension Hx of CAD with prior Hx of NSTEMI in 2021 Continue to monitor adjust BP as needed Type 2 diabetes mellitus Monitor glucose a.c. and HS. Follow insulin sliding scale. Hyperglycemia and hypoglycemia protocol Disposition: Pending improvement in clinical status, ID recommendations Plan of action discussed with the patient, all questions answered, agreed and understood the information provided. OBDULIO JENKINS MD Jul 25, 2024 16:27
[2024-07-26] VITALS (7 sets, daily range): BP systolic 93–122; BP diastolic 66–81; PULSE 61–84; RESP 20; TEMP 97.5–99.5; O2SAT 100
--- NOTE | 2024-07-26 03:19 | PN ---
INFECTIOUS DISEASE FOLLOWUP NOTE DATE OF SERVICE: 07/24/2024 SUBJECTIVE: The patient is seen and examined at bedside, has some fever. The patient also is having cough. No hemoptysis or pleuritic pain. No bleeding tendency. No rashes or itchiness. No diarrhea. No palpitation or orthopnea. PHYSICAL EXAMINATION: VITAL SIGNS: Temperature 99.5. EYES: No icterus. Pupils equal and reactive. HENT: No oral thrush seen. Moist oral mucosa. NECK: Supple, no JVD or thyromegaly. LUNGS: Good air entry. No rales, no rhonchi. CARDIOVASCULAR: S1, S2 regular. No murmur heard. ABDOMEN: Full, soft. Bowel sound is present. CENTRAL NERVOUS SYSTEM: Awake, alert and oriented x 3. No focal deficits. SKIN: No rashes, no itchiness. LYMPHATIC: No peripheral lymphadenopathy. HEMATOLOGIC: No bleeding or petechial lesion seen. MUSCULOSKELETAL: No joint swelling, erythema or tenderness. ASSESSMENT: A 44-year-old male with multiple problems, which include: * Gram-negative sepsis. * Infectious gastroenteritis. * Hyponatremia. * Diabetes mellitus. * Alcoholism. * Obesity. * Possible pneumonia. PLAN: * Discontinue ceftriaxone. * Start the patient on Zosyn. * Continue doxycycline. * Obtain CT chest without contrast. * Continue nutritional support. * Monitor electrolytes. * Continue DVT prophylaxis. * The patient will be followed up closely. TID: [id number] RECEIPT: [id number]
[2024-07-26] MEDS: chlordiazePOXIDE HCL 25 MG CAP PO PRN (05:37)
[2024-07-26 05:51] LABS: BASOPHILS # (AUTO) 0.01 K/uL (0.00-0.20); BASOPHILS % (AUTO) 0.3 % (0.0-5.0); EOSINOPHILS # (AUTO) 0.08 K/uL (0.00-0.70); EOSINOPHILS % (AUTO) 2.5 % (0.0-8.0); HEMATOCRIT 34.2 % (42-54); IMMATURE GRANULOCYTE ABSOLUTE 0.03 K/uL (0-1); LYMPHOCYTES # (AUTO) 1.4 K/uL (1.0-4.8); LYMPHOCYTES % (AUTO) 42.6 % (21.0-51.0); MEAN CORPUSCULAR HEMOGLOBIN 29.3 pg (27.0-33.0); MEAN CORPUSCULAR HGB CONC 33.6 g/dL (32.0-36.0); MEAN CORPUSCULAR VOLUME 87.2 fL (79-99); MONOCYTES # (AUTO) 0.5 K/uL (0.1-1.0); MONOCYTES % (AUTO) 15.1 % (3.0-13.0); NEUTROPHILS # (AUTO) 1.2 K/uL (1.8-7.7); NEUTROPHILS % (AUTO) 38.6 % (40.0-77.0); NUCLEATED RED BLOOD CELLS 0.6 % (0.0-0.19); PLATELET COUNT (AUTO) 172 K/uL (130-400); RED BLOOD CELL COUNT(AUTO) 3.92 MIL/uL (4.50-6.20); RED CELL DISTRIBUTION WIDTH 11.9 % (11.0-15.5); WHITE BLOOD COUNT (AUTO) 3.2 K/uL (4.8-10.8)
[2024-07-26 06:15] LABS: CREATININE 0.9 mg/dL (0.5-1.3); MAGNESIUM 1.8 mg/dL (1.80-2.40); PHOSPHORUS 3.6 mg/dL (2.5-4.9); POTASSIUM 4.4 mmol/L (3.5-5.1)
--- NOTE | 2024-07-26 15:00 | PN ---
INFECTIOUS DISEASE PROGRESS NOTE Date of Service: Jul 26, 2024 SUBJECTIVE: This 44 year old male patient was seen and examined at bedside in room 313. Patient is awake, alert and oriented x3. Patient continues on Tamiflu for influenza viral infection type A. Low-grade fever of 99.9 reported throughout the night but no fever this morning, current temperature is 98.1. We will continue on Zosyn IV every 8 hours. No reports nausea or vomiting. We will continue to monitor patient. PHYSICAL EXAM EYES: Anicteric. Pupils equal and reactive. HENT: No oral thrush seen, moist Oral mucosa NECK: Supple, no JVD or thyromegaly. LUNGS: Good air entry. No rales, no rhonchi. CARDIOVASCULAR: S1, S2 regular. No murmur heard. ABDOMEN: Soft, non tender, bowel sounds present, no organomegaly CENTRAL NERVOUS SYSTEM: Awake, alert, oriented x 3. No focal deficits. SKIN: No rashes, no swelling. LYMPHATICS: No peripheral lymphadenopathy MUSCULOSKELETAL: No joint swelling, erythema or tenderness. EXTREMITIES: No cyanosis or clubbing BACK: No deformity, no pressure ulcer. GENITOURINARY: No dysuria or hematuria Vital Sign (Last 12 Hours) 07/26/24 07/26/24 07/26/24 07/26/24 04:00 07:25 08:00 11:25 Temp 98.6 98.2 98.1 Pulse 61 77 67 Resp 20 20 20 B/P (MAP) 115/74 93/67 95/66 Pulse Ox 100 100 100 100 O2 Delivery Room Air Room Air Room Air* Room Air O2 Flow Rate 0 FiO2 21 21 21 Intake & Output (last 24hrs) 07/25/24 07/25/24 07/26/24 15:00 23:00 07:00 Intake Total 875 ml Balance 875 ml LABS: Laboratory: Test 07/26/24 11:21 07/26/24 05:20 07/25/24 09:55 07/24/24 17:30 Range/Units Whole Blood Glucose 263 #H 70-110 MG/DL White Blood Count 3.2 L 4.8-10.8 K/uL Red Blood Count 3.92 L 4.50-6.20 MIL/uL Hemoglobin 11.5 L 14.0-18.0 g/dL Hematocrit 34.2 L 42-54 % Mean Corpuscular Volume 87.2 79-99 fL Mean Corpuscular Hemoglobin 29.3 27.0-33.0 pg Mean Corpuscular Hemoglobin Concent 33.6 32.0-36.0 g/dL Red Cell Distribution Width 11.9 11.0-15.5 % Platelet Count 172 130-400 K/uL Mean Platelet Volume 11.5 H 7.5-10.5 fL Immature Granulocyte % (Auto) 0.9 0-1 % Neutrophils (%) (Auto) 38.6 L 40.0-77.0 % Lymphocytes (%) (Auto) 42.6 21.0-51.0 % Monocytes (%) (Auto) 15.1 H 3.0-13.0 % Eosinophils (%) (Auto) 2.5 0.0-8.0 % Basophils (%) (Auto) 0.3 0.0-5.0 % Neutrophils # (Auto) 1.2 L 1.8-7.7 K/uL Lymphocytes # (Auto) 1.4 1.0-4.8 K/uL Monocytes # (Auto) 0.5 0.1-1.0 K/uL Eosinophils # (Auto) 0.08 0.00-0.70 K/uL Basophils # (Auto) 0.01 0.00-0.20 K/uL Absolute Immature Granulocyte (auto 0.03 0-1 K/uL Nucleated Red Blood Cells 0.6 H 0.0-0.19 % Sodium Level 138 136-145 mmol/L Potassium Level 4.4 3.5-5.1 mmol/L Chloride Level 103 101-111 mmol/L Carbon Dioxide Level 27 21-32 mmol/L Blood Urea Nitrogen 8 7-18 mg/dL Creatinine 0.9 0.5-1.3 mg/dL Glomerular Filtration Rate Calc 107 >90 mL/min Random Glucose 160 H 70-105 mg/dL Total Calcium 8.7 8.5-10.1 mg/dL Phosphorus Level 3.6 2.5-4.9 mg/dL Magnesium Level 1.80 1.80-2.40 mg/dL C. difficile Antigen and Toxins A,B See comments NEG Urine Color LIGHT-YELLOW YELLOW Urine Appearance CLEAR CLEAR Urine pH 6.0 5.0-8.0 Urine Specific [place] 1.014 1.001-1.031 Urine Protein NEGATIVE NEGATIVE mg/dL Urine Glucose (UA) 300 H NEGATIVE mg/dL Urine Ketones NEGATIVE NEGATIVE mg/dL Urine Occult Blood NEGATIVE NEGATIVE Urine Nitrate NEGATIVE NEGATIVE Urine Bilirubin NEGATIVE NEGATIVE mg/dL Urine Urobilinogen 0.2 0.2-1.0 mg/dL Urine Leukocyte Esterase NEGATIVE NEGATIVE [place]se/uL Urine RBC 0-1 0-1 /HPF Urine WBC 0-1 0-1 /HPF Urine Squamous Epithelial Cells RARE 0-2 /HPF Urine Bacteria None None Seen /HPF Test 07/24/24 15:00 Range/Units Influenza Type A Antigen Positive For Type A *A NEGATIVE Influenza Type B Antigen Negative For Type B NEGATIVE SARS-CoV-2 Antigen (Rapid) PRESUMPTIVE NEGATIVE NEGATIVE Group A Streptococcus Rapid negative NEGATIVE ASSESSMENT: Influenza viral infection type A. Cholelithiasis. Sepsis Leukocytosis resolved. Hyponatremia, resolving. Thrombocytopenia, resolving. Elevated liver enzymes, may be due to shock liver, s/p EUS. Diabetes mellitus. Chronic alcoholism. Substance abuse. PLAN: Continue Zosyn IV. Continue doxycycline. Continue Tamiflu. Continue GI prophylaxis. Continue pain management. Continue monitoring LFT levels. Continue CIWA protocol. This case was reviewed and discussed with my supervising physician and the above assessment and plan was formulated and agreed upon. ATTESTATION BY PHYSICIAN I have seen and examined the patient. I reviewed the documentation, medical decision making, and treatment plan as noted by the mid-level provider above. I agree with the findings and plan of care. DAMI HUGGINS MD, MIRTA L [facility] Jul 26, 2024 15:00
--- NOTE | 2024-07-26 16:22 | PN ---
[facility] PROGRESS NOTE Date of Service: Jul 26, 2024 Time of Service: 16:20 SUBJECTIVE: The patient has been seen and examined today during my rounding, back in the room from having EGD, tolerated the procedure well, he is alert oriented x3, BP 106/63, afebrile, saturating normal on room air. He denies dizziness, no headache, no blurry vision, no chest pain, no shortness a breath, no nausea, no vomiting, no abdominal discomfort, no diarrhea, no constipation, no melena, no hematochezia, no hematemesis, no hematuria, no dysuria. 07/22 the patient has been seen and examined during my rounding, no acute events over tonight, remains hemodynamically stable, afebrile, saturating normal on room air. He is alert oriented x3, denies nausea, no vomiting, no abdominal tati n. Results of liver enzymes reviewed, discussed with the patient, currently trending down, all questions answered. 07/23 the patient has been seen and examined during my rounding, comfortably in bed, no acute events overnight, getting IV fluids, no nausea, no vomiting, no abdominal pain. Results of stool studies positive for vibrio, discussed with the patient. Liver enzymes slowly, results discussed with the patient, all questions answered. 07/24 the patient has been seen and examined during my rounding, comfortably in bed, he remains alert oriented x3, according to him he had one episode of solid stool yesterday, after the stools has been watery, more than seven episodes. The patient is still spiking fever. He denied chest pain, no shortness a breath, no nausea, no vomiting, no abdominal pain. He is currently on regular diet, tolerating well. 07/25 Pt seen at bedside, no acute events overnight. Ceftriaxone discontinued, Zosyn started. C. Diff panel pending. Further care per ID. 07/26 Pt seen at bedside, no acute events overnight. C. Diff panel negative. Pt has no complaints. Vitals and labs unremarkable. Discharge antibiotics pending per ID. Case management consulted to coordinate dc medications with ID. REVIEW OF SYSTEMS CONSTITUTIONAL: Admits having fever. Last temp of 104 F at home yesterday with shakiness. Denies chills, or night sweats. No unintentional weight loss reported. NEUROLOGICAL: Denies headache, amaurosis fugax, motor weakness, sensory deficit, vertigo/spinning sensation, gait abnormalities, or tremors. ENT: No hearing loss, otalgia, otorrhea, rhinitis, rhinorrhea, hoarseness, or sore throat. CARDIOVASCULAR: Denies any exertional angina, dyspnea on exertion, orthopnea, paroxysmal nocturnal dyspnea, palpitations, life-threatening arrhythmias, claudication. PULMONARY: Denies any shortness of breath, cough, phlegm/sputum, hemoptysis, p leuritic chest pain. SLEEP: Denies morning headaches, daytime somnolence or napping. Denies difficulty falling asleep, staying asleep, waking from sleep. Denies knowledge of snoring. GASTROINTESTINAL: reports having diarrhea GENITOURINARY: Denies frequency, urgency, nocturia, hematuria or incontinence (Storage/Irritative symptoms.) Low urinary stream, straining to void, urinary intermittency or hesitancy, splitting of the voiding stream, terminal dribbling. ENDOCRINOLOGIC: Denies polyuria, polydipsia, polyphagia or heat/cold intolerances. HEMATOLOGIC: Denies thrombophilia/previous clots, or coagulopathy/bleeding disorders. ONCOLOGIC: Denies personal history of malignancy. DERMATOLOGIC: Denies rashes or pruritus. PSYCHIATRIC: Denies any suicidal or homicidal ideation. Denies hallucinations. PHYSICAL EXAM GENERAL APPEARANCE: Patient appears ill and jaundiced. The patient is awake, alert, and oriented, in no acute cardiopulmonary distress. NEUROLOGICAL: Cranial nerves II-XII grossly intact. Motor is 5/5 in bilateral upper and lower extremities proximal to distal. No sensory deficits. HEENT: Positive for scleral icterus. Face is symmetric. Pupils are equal and reactive. Extraocular movements are intact. NECK: Supple. No JVD. No thyromegaly. No submental, submandibular, pre- /postauricular, occipital or supraclavicular lymphadenopathy. CHEST: Normal chest expansion. No Telemetry. LUNGS: Absence of any rales, rhonchi or any wheezing. CARDIOVASCULAR: Regular. S1 and S2 normal. No appreciable rubs, murmurs or gallops. ABDOMEN: Soft, nontender, and nondistended. There is no rebound, voluntary guarding, or rigidity. : Deferred. No Zambrano. EXTREMITIES: Non-edematous and not cyanotic. No clubbing. Good capillary refill. SKIN: No skin breakdown. Vital Signs (last 8hr) Date Time Temp Pulse Resp B/P (MAP) Pulse Ox O2 Delivery O2 Flow Rate FiO2 07/26/24 11:25 98.1 67 20 95/66 100 Room Air 21 LABS: Laboratory: Test 07/26/24 16:05 07/26/24 05:20 07/25/24 09:55 07/24/24 17:30 Range/Units Whole Blood Glucose 226 H 70-110 MG/DL White Blood Count 3.2 L 4.8-10.8 K/uL Red Blood Count 3.92 L 4.50-6.20 MIL/uL Hemoglobin 11.5 L 14.0-18.0 g/dL Hematocrit 34.2 L 42-54 % Mean Corpuscular Volume 87.2 79-99 fL Mean Corpuscular Hemoglobin 29.3 27.0-33.0 pg Mean Corpuscular Hemoglobin Concent 33.6 32.0-36.0 g/dL Red Cell Distribution Width 11.9 11.0-15.5 % Platelet Count 172 130-400 K/uL Mean Platelet Volume 11.5 H 7.5-10.5 fL Immature Granulocyte % (Auto) 0.9 0-1 % Neutrophils (%) (Auto) 38.6 L 40.0-77.0 % Lymphocytes (%) (Auto) 42.6 21.0-51.0 % Monocytes (%) (Auto) 15.1 H 3.0-13.0 % Eosinophils (%) (Auto) 2.5 0.0-8.0 % Basophils (%) (Auto) 0.3 0.0-5.0 % Neutrophils # (Auto) 1.2 L 1.8-7.7 K/uL Lymphocytes # (Auto) 1.4 1.0-4.8 K/uL Monocytes # (Auto) 0.5 0.1-1.0 K/uL Eosinophils # (Auto) 0.08 0.00-0.70 K/uL Basophils # (Auto) 0.01 0.00-0.20 K/uL Absolute Immature Granulocyte (auto 0.03 0-1 K/uL Nucleated Red Blood Cells 0.6 H 0.0-0.19 % Sodium Level 138 136-145 mmol/L Potassium Level 4.4 3.5-5.1 mmol/L Chloride Level 103 101-111 mmol/L Carbon Dioxide Level 27 21-32 mmol/L Blood Urea Nitrogen 8 7-18 mg/dL Creatinine 0.9 0.5-1.3 mg/dL Glomerular Filtration Rate Calc 107 >90 mL/min Random Glucose 160 H 70-105 mg/dL Total Calcium 8.7 8.5-10.1 mg/dL Phosphorus Level 3.6 2.5-4.9 mg/dL Magnesium Level 1.80 1.80-2.40 mg/dL C. difficile Antigen and Toxins A,B See comments NEG Urine Color LIGHT-YELLOW YELLOW Urine Appearance CLEAR CLEAR Urine pH 6.0 5.0-8.0 Urine Specific [place] 1.014 1.001-1.031 Urine Protein NEGATIVE NEGATIVE mg/dL Urine Glucose (UA) 300 H NEGATIVE mg/dL Urine Ketones NEGATIVE NEGATIVE mg/dL Urine Occult Blood NEGATIVE NEGATIVE Urine Nitrate NEGATIVE NEGATIVE Urine Bilirubin NEGATIVE NEGATIVE mg/dL Urine Urobilinogen 0.2 0.2-1.0 mg/dL Urine Leukocyte Esterase NEGATIVE NEGATIVE [place]se/uL Urine RBC 0-1 0-1 /HPF Urine WBC 0-1 0-1 /HPF Urine Squamous Epithelial Cells RARE 0-2 /HPF Urine Bacteria None None Seen /HPF Current Medications Medications (Trade) Dose Ordered Sig/Christina Route PRN Reason Start Time Stop Time Status Last Admin Dose Admin Acetaminophen (TYLenol 500MG TAB) 500 mg Q6H PRN PO PAIN/FEVER 07/23/24 21:30 08/22/24 21:29 07/26/24 05:40 500 MG Ceftriaxone Sodium (Rocephin 2gm Inj) 2 gm Q24H IVPB 07/20/24 13:00 07/24/24 14:11 DC 07/24/24 12:20 2 GM Chlordiazepoxide HCl (LIBrium 25 MG CAP) 25 mg Q6H PRN PO ALCOHOL WITHDRAWAL PROTOCOL 07/20/24 13:30 07/26/24 16:12 DC 07/26/24 05:37 25 MG Doxycycline Hyclate 250 ml @ 125 mls/hr Q12H IV 07/20/24 13:00 07/30/24 12:59 07/26/24 12:45 125 MLS/HR Folic Acid (FOLic ACID 1 MG TABLET) 1 mg DAILY PO 07/21/24 09:00 07/23/24 09:01 DC 07/23/24 08:42 1 MG Insulin Human Regular (humuLIN R 100 UNIT/ML 3ML) INSULIN SLIDING SCAL... ACHS SQ 07/20/24 16:30 08/19/24 16:29 07/26/24 13:00 5 UNIT Lactobacillus Rhamnosus ([facility]) 1 each BID PO 07/24/24 21:00 08/23/24 20:59 07/26/24 09:15 1 EACH Lorazepam (AtiVAN) 1 mg Q4H PRN IVP ALCOHOL WITHDRAWAL PROTOCOL 07/20/24 13:30 07/26/24 16:12 DC 07/20/24 23:45 1 MG Magnesium Sulfate 50 ml @ 0 mls/hr PROTOCOL IV 07/24/24 07:30 08/23/24 07:29 07/25/24 06:30 25 MLS/HR Magnesium Sulfate 50 ml @ 0 mls/hr PROTOCOL IV 07/23/24 09:00 07/24/24 07:17 DC 07/24/24 06:15 25 MLS/HR Ondansetron HCl (zoFRAN 4MG INJ) 4 mg Q6H PRN IVP NAUSEA/VOMITING 07/20/24 13:30 07/20/24 13:17 DC Ondansetron HCl (zoFRAN 4MG INJ) 4 mg Q6H PRN IVP NAUSEA/VOMITING 07/20/24 13:30 08/19/24 13:29 Oseltamivir Phosphate (Tamiflu) 75 mg BID PO 07/24/24 21:00 07/29/24 20:59 07/26/24 09:15 75 MG Pantoprazole Sodium (PROTonix 40MG INJ) 40 mg Q12H IVP 07/20/24 13:30 08/19/24 13:29 07/26/24 12:45 40 MG Pharmacy Profile Note (Pharmacy Communication) 1 each PROTOCOL PRN MISC ETOH Withdrawal Score changes 07/20/24 13:30 07/27/24 13:29 Piperacillin Sod/ Tazobactam Sod (Zosyn 3.375gm+NS 50ml) 3.375 gm Q8H IVPB 07/24/24 19:30 08/03/24 19:29 07/26/24 12:45 3.375 GM Potassium Chloride 100 ml @ 100 mls/hr AD PRN IV POTASSIUM PROTOCOL 07/21/24 12:00 08/20/24 11:59 Potassium Chloride (K-Dur/Klor-Con 20meq) 20 meq AD PRN PO POTASSIUM PROTOCOL 07/21/24 12:00 08/20/24 11:59 07/23/24 08:42 20 MEQ Potassium Chloride (KCl 10% Elixir 20meq/15ml) 20 meq AD PRN PO POTASSIUM PROTOCOL 07/21/24 12:00 08/20/24 11:59 Sodium Chloride 1,000 ml @ 75 mls/hr [id number] IV 07/20/24 13:00 07/22/24 09:22 DC 07/22/24 01:33 75 MLS/HR Thiamine HCl (Vitamin B-1) 200 mg Q24H IVP 07/20/24 13:00 07/24/24 13:00 DC 07/24/24 12:20 200 MG DIAGNOSTICS / RADIOLOGY: [ ] ASSESSMENT: Severe acute hepatitis POA Acute gastroenteritis secondary to Vibriosis, POA Acute cholecystitis rule out Severe hyponatremia, hypochloremia POA Sepsis, POA, 2/2 acute cholecystitis vs infectious Gastroenteritis, POA Concern for ischemic Hepatitis, POA Elevated lactate POA Leukocytosis POA Thrombocytopenia, POA Hyperbilirubinemia POA Acute pancreatitis POA Hx of Chronic Alcoholism, POA Cocaine abuse Hypertension Type 2 diabetes mellitus Hyperlipidemia Hx of NSTEMI, in 2021, w/ Hx of PCI, POA Hx of Dual Antiplatelet therapy as outpatient, POA Overweight BMI 29.8 s/p bariatric surgery PLAN: Patient remains admitted to the medical floor Severe acute hepatitis POA r/o Acute vs Chronic Cholecystitis, POA r/o Vibriosis, POA Infectious gastroenteritis, POA Continue supportive care with IV fluids Continue to monitor liver enzymes as well as Acute hepatitis panel and HIV panel negative Stool studies positive for vibrio, continue antibiotics, continue to follow infectious disease input and recommendations. Antimitochondrial antibody pending. Replace electrolytes IV per protocol Normal HIDA scan. MRCP shows gallstones in the gallbladder with gallbladder wall thickening common duct dilatation suggestive of acute cholecystitis in the proper clinical setting. HIDA scan is unremarkable. Electrolyte imbalance; severe hyponatremia, hypochloremia POA Continue to monitor sodium level, follow Nephrology input and recommendations Elevated lactate POA Monitor lactic acid level Leukocytosis POA Thrombocytopenia, POA A.m. labs Hyperbilirubinemia POA Liver enzymes in a.m. Hx Chronic alcoholism Continue thiamine HCl 200 mg and folic acid 1 mg p.o. P.r.n. Librium 25 mg and Ativan 1 mg PRN added for alcohol withdrawal symptoms. Monitor for signs of alcohol withdrawal Hypertension Hx of CAD with prior Hx of NSTEMI in 2021 Continue to monitor adjust BP as needed Type 2 diabetes mellitus Monitor glucose a.c. and HS. Follow insulin sliding scale. Hyperglycemia and hypoglycemia protocol Disposition: Pending ID recommendations for dc antibiotics Plan of action discussed with the patient, all questions answered, agreed and understood the information provided. OBDULIO JENKINS MD Jul 26, 2024 16:22
--- NOTE | 2024-07-26 17:34 | PN ---
GASTROENTEROLOGY PROGRESS NOTE Date of Consultation: Jul 26, 2024 Time of Consultation: 17:34 Events / Notes: No acute events overnight. LFTs trending down. Review of Systems: CONSTITUTIONAL: No malaise or change in sensation of wellbeing. ENMT: No rhinorrhea, otorrhea, sinus pain, ear ache. CARDIOVASCULAR: No angina, palpitations, orthopnea or paroxysmal dyspnea. RESPIRATORY: No SOB. GASTROINTESTINAL: No abdominal pain, nausea, vomiting, diarrhea, hematemesis, melena or change in the patient's habitual bowel movements consistency/number. GENITOURINARY: No dysuria, hematuria or change in bladder continence. MUSCULOSKELETAL: No new muscle pain or decrease in muscular strength. No new joint swelling, redness or tenderness. SKIN: No new rash. Physical Exam: GEN: Awake, alert, oriented in person, time and place, and in no acute distress. HEENT: No sinus tenderness. Tympanic membranes were not examined. No rhinorrhea. Oral pharyngeal mucosa is pink, moist and within normal limits. Neck is supple with no cervical lymphadenopathy, thyromegaly or JVD. CHEST: Inspection, palpation and percussion of the chest were unremarkable. Lung auscultation revealed normal breath sounds bilaterally. CARDIAC: PMI is within normal limits. Heart sounds are regular. Normal S1, S2. No gallop or murmur. ABD: Soft, non-tender and not distended. No peritoneal signs on palpation. No o rganomegaly. Normal bowel sounds. EXT: No cyanosis or clubbing. No edema. SKIN: Intact. No rashes. JOINTS: No evidence of synovitis or acute arthritis. NEURO: Alert and oriented to name, place and person. Cranial nerve examination is unremarkable. No focal motor deficits. Normal speech. Gait is normal. Strength is normal. Vital Signs (last 8hr) Date Time Temp Pulse Resp B/P (MAP) Pulse Ox O2 Delivery O2 Flow Rate FiO2 07/26/24 15:10 98.6 74 20 110/78 100 Room Air 21 07/26/24 11:25 98.1 67 20 95/66 100 Room Air 21 Laboratory: [ ] Laboratory: Test 07/26/24 16:05 07/26/24 05:20 07/25/24 09:55 Range/Units Whole Blood Glucose 226 H 70-110 MG/DL White Blood Count 3.2 L 4.8-10.8 K/uL Red Blood Count 3.92 L 4.50-6.20 MIL/uL Hemoglobin 11.5 L 14.0-18.0 g/dL Hematocrit 34.2 L 42-54 % Mean Corpuscular Volume 87.2 79-99 fL Mean Corpuscular Hemoglobin 29.3 27.0-33.0 pg Mean Corpuscular Hemoglobin Concent 33.6 32.0-36.0 g/dL Red Cell Distribution Width 11.9 11.0-15.5 % Platelet Count 172 130-400 K/uL Mean Platelet Volume 11.5 H 7.5-10.5 fL Immature Granulocyte % (Auto) 0.9 0-1 % Neutrophils (%) (Auto) 38.6 L 40.0-77.0 % Lymphocytes (%) (Auto) 42.6 21.0-51.0 % Monocytes (%) (Auto) 15.1 H 3.0-13.0 % Eosinophils (%) (Auto) 2.5 0.0-8.0 % Basophils (%) (Auto) 0.3 0.0-5.0 % Neutrophils # (Auto) 1.2 L 1.8-7.7 K/uL Lymphocytes # (Auto) 1.4 1.0-4.8 K/uL Monocytes # (Auto) 0.5 0.1-1.0 K/uL Eosinophils # (Auto) 0.08 0.00-0.70 K/uL Basophils # (Auto) 0.01 0.00-0.20 K/uL Absolute Immature Granulocyte (auto 0.03 0-1 K/uL Nucleated Red Blood Cells 0.6 H 0.0-0.19 % Sodium Level 138 136-145 mmol/L Potassium Level 4.4 3.5-5.1 mmol/L Chloride Level 103 101-111 mmol/L Carbon Dioxide Level 27 21-32 mmol/L Blood Urea Nitrogen 8 7-18 mg/dL Creatinine 0.9 0.5-1.3 mg/dL Glomerular Filtration Rate Calc 107 >90 mL/min Random Glucose 160 H 70-105 mg/dL Total Calcium 8.7 8.5-10.1 mg/dL Phosphorus Level 3.6 2.5-4.9 mg/dL Magnesium Level 1.80 1.80-2.40 mg/dL C. difficile Antigen and Toxins A,B See comments NEG Current Medications Medications (Trade) Dose Ordered Sig/Christina Route PRN Reason Start Time Stop Time Status Last Admin Dose Admin Acetaminophen (TYLenol 500MG TAB) 500 mg Q6H PRN PO PAIN/FEVER 07/23/24 21:30 08/22/24 21:29 07/26/24 05:40 500 MG Ceftriaxone Sodium (Rocephin 2gm Inj) 2 gm Q24H IVPB 07/20/24 13:00 07/24/24 14:11 DC 07/24/24 12:20 2 GM Chlordiazepoxide HCl (LIBrium 25 MG CAP) 25 mg Q6H PRN PO ALCOHOL WITHDRAWAL PROTOCOL 07/20/24 13:30 07/26/24 16:12 DC 07/26/24 05:37 25 MG Doxycycline Hyclate 250 ml @ 125 mls/hr Q12H IV 07/20/24 13:00 07/30/24 12:59 07/26/24 12:45 125 MLS/HR Folic Acid (FOLic ACID 1 MG TABLET) 1 mg DAILY PO 07/21/24 09:00 07/23/24 09:01 DC 07/23/24 08:42 1 MG Insulin Human Regular (humuLIN R 100 UNIT/ML 3ML) INSULIN SLIDING SCAL... ACHS SQ 07/20/24 16:30 08/19/24 16:29 07/26/24 17:21 4 UNIT Lactobacillus Rhamnosus ([facility]) 1 each BID PO 07/24/24 21:00 08/23/24 20:59 07/26/24 09:15 1 EACH Lorazepam (AtiVAN) 1 mg Q4H PRN IVP ALCOHOL WITHDRAWAL PROTOCOL 07/20/24 13:30 07/26/24 16:12 DC 07/20/24 23:45 1 MG Magnesium Sulfate 50 ml @ 0 mls/hr PROTOCOL IV 07/24/24 07:30 08/23/24 07:29 07/25/24 06:30 25 MLS/HR Magnesium Sulfate 50 ml @ 0 mls/hr PROTOCOL IV 07/23/24 09:00 07/24/24 07:17 DC 07/24/24 06:15 25 MLS/HR Ondansetron HCl (zoFRAN 4MG INJ) 4 mg Q6H PRN IVP NAUSEA/VOMITING 07/20/24 13:30 07/20/24 13:17 DC Ondansetron HCl (zoFRAN 4MG INJ) 4 mg Q6H PRN IVP NAUSEA/VOMITING 07/20/24 13:30 08/19/24 13:29 Oseltamivir Phosphate (Tamiflu) 75 mg BID PO 07/24/24 21:00 07/29/24 20:59 07/26/24 09:15 75 MG Pantoprazole Sodium (PROTonix 40MG INJ) 40 mg Q12H IVP 07/20/24 13:30 08/19/24 13:29 07/26/24 12:45 40 MG Pharmacy Profile Note (Pharmacy Communication) 1 each PROTOCOL PRN MISC ETOH Withdrawal Score changes 07/20/24 13:30 07/27/24 13:29 Piperacillin Sod/ Tazobactam Sod (Zosyn 3.375gm+NS 50ml) 3.375 gm Q8H IVPB 07/24/24 19:30 08/03/24 19:29 07/26/24 12:45 3.375 GM Potassium Chloride 100 ml @ 100 mls/hr AD PRN IV POTASSIUM PROTOCOL 07/21/24 12:00 08/20/24 11:59 Potassium Chloride (K-Dur/Klor-Con 20meq) 20 meq AD PRN PO POTASSIUM PROTOCOL 07/21/24 12:00 08/20/24 11:59 07/23/24 08:42 20 MEQ Potassium Chloride (KCl 10% Elixir 20meq/15ml) 20 meq AD PRN PO POTASSIUM PROTOCOL 07/21/24 12:00 08/20/24 11:59 Sodium Chloride 1,000 ml @ 75 mls/hr [id number] IV 07/20/24 13:00 07/22/24 09:22 DC 07/22/24 01:33 75 MLS/HR Thiamine HCl (Vitamin B-1) 200 mg Q24H IVP 07/20/24 13:00 07/24/24 13:00 DC 07/24/24 12:20 200 MG Diagnostics / Radiology: [COPY/PASTE HERE IF NO REPORTS PLEASE DELETE SECTION] Assessment: Abnormal lfts, likely related to ischemic hepatopathy from cocaine use vs viral process Thrombocytopenia, concerning for cirrhosis Splenomegaly Hyponatremia Plan: Await liver serologies Patient educated on abstinence and risk of acute liver failure Patient to f/u outpatient for cirrhosis management. LYUBOV [facility] Jul 26, 2024 17:34
--- NOTE | 2024-07-26 18:29 | PN ---
SUBJECTIVE: A 44-year-old male initially presented with acute renal failure and electrolyte abnormalities. The patient has history of substance abuse. The patient's also with positive influenza. The patient's pulmonary symptoms have greatly improved. He does have a history underlying renal dysfunction and electrolyte abnormalities and he is being seen for all of the above. REVIEW OF SYSTEMS: GENERAL: He is feeling improved since admission. HEENT: No change in vision. No change in hearing. CARDIOVASCULAR: There is no current chest pain or palpitations. PULMONARY: No shortness of breath. GASTROINTESTINAL: The patient is tolerating a diet. MUSCULOSKELETAL: Complains of weakness. PHYSICAL EXAMINATION: VITAL SIGNS: Blood pressure 100/66, pulse in the 60s. GENERAL: Chronically ill male, older than appearing. HEENT: Head is atraumatic. Pupils equal, roving to light. Oropharynx is without exudate. Nares clear. NECK: There is no JVP. There is no thyromegaly, no mass. CARDIOVASCULAR: Regular. There is no S3, S4 gallop. LUNGS: Coarse with equal thoracic movement. ABDOMEN: Soft, nondistended, nontender. EXTREMITIES: Reveal no clubbing, no cyanosis. NEUROLOGIC: He is awake. He is alert. LABORATORY DATA: Sodium 138, potassium 4.4, BUN 8, creatinine 0.9, glucose is 226. Hemoglobin 11, hematocrit 24. IMPRESSION: * Renal dysfunction. * Influenza. * Electrolyte abnormalities. * History of substance abuse. PLAN: The patient's creatinine has improved. The patient is encouraged with the fluid restriction for the hyponatremia. The patient's pulmonary symptoms have greatly improved. We will continue to follow closely. Once the patient is discharged, he can follow up in the [facility]. TID: [id number] RECEIPT: [id number]
[2024-07-27] VITALS: BP 113/57; PULSE 85; RESP 20; TEMP 98.3
[2024-07-27 04:00] VITALS: BP 110/64; PULSE 82; RESP 20; TEMP 98.9
[2024-07-27 05:24] LABS: BASOPHILS # (AUTO) 0.02 K/uL (0.00-0.20); BASOPHILS % (AUTO) 0.6 % (0.0-5.0); EOSINOPHILS # (AUTO) 0.07 K/uL (0.00-0.70); HEMATOCRIT 35.6 % (42-54); IMMATURE GRANULOCYTE ABSOLUTE 0.01 K/uL (0-1); LYMPHOCYTES # (AUTO) 1.7 K/uL (1.0-4.8); LYMPHOCYTES % (AUTO) 50.1 % (21.0-51.0); MEAN CORPUSCULAR HEMOGLOBIN 28.4 pg (27.0-33.0); MEAN CORPUSCULAR VOLUME 88.8 fL (79-99); MONOCYTES # (AUTO) 0.3 K/uL (0.1-1.0); MONOCYTES % (AUTO) 9.2 % (3.0-13.0); NEUTROPHILS # (AUTO) 1.3 K/uL (1.8-7.7); NEUTROPHILS % (AUTO) 37.8 % (40.0-77.0); PLATELET COUNT (AUTO) 212 K/uL (130-400); RED BLOOD CELL COUNT(AUTO) 4.01 MIL/uL (4.50-6.20); RED CELL DISTRIBUTION WIDTH 11.9 % (11.0-15.5); WHITE BLOOD COUNT (AUTO) 3.5 K/uL (4.8-10.8)
[2024-07-27 05:30] LABS: CREATININE 0.8 mg/dL (0.5-1.3); POTASSIUM 3.9 mmol/L (3.5-5.1)
[2024-07-27 07:25] VITALS: BP 105/64; PULSE 99; RESP 20; TEMP 98.1
[2024-07-27 08:00] VITALS: O2SAT 100
--- NOTE | 2024-07-27 09:25 | PN ---
[facility] PROGRESS NOTE Date of Service: Jul 27, 2024 Time of Service: 09:24 SUBJECTIVE: The patient has been seen and examined today during my rounding, back in the room from having EGD, tolerated the procedure well, he is alert oriented x3, BP 106/63, afebrile, saturating normal on room air. He denies dizziness, no headache, no blurry vision, no chest pain, no shortness a breath, no nausea, no vomiting, no abdominal discomfort, no diarrhea, no constipation, no melena, no hematochezia, no hematemesis, no hematuria, no dysuria. 07/22 the patient has been seen and examined during my rounding, no acute events over tonight, remains hemodynamically stable, afebrile, saturating normal on room air. He is alert oriented x3, denies nausea, no vomiting, no abdominal tati n. Results of liver enzymes reviewed, discussed with the patient, currently trending down, all questions answered. 07/23 the patient has been seen and examined during my rounding, comfortably in bed, no acute events overnight, getting IV fluids, no nausea, no vomiting, no abdominal pain. Results of stool studies positive for vibrio, discussed with the patient. Liver enzymes slowly, results discussed with the patient, all questions answered. 07/24 the patient has been seen and examined during my rounding, comfortably in bed, he remains alert oriented x3, according to him he had one episode of solid stool yesterday, after the stools has been watery, more than seven episodes. The patient is still spiking fever. He denied chest pain, no shortness a breath, no nausea, no vomiting, no abdominal pain. He is currently on regular diet, tolerating well. 07/25 Pt seen at bedside, no acute events overnight. Ceftriaxone discontinued, Zosyn started. C. Diff panel pending. Further care per ID. 07/26 Pt seen at bedside, no acute events overnight. C. Diff panel negative. Pt has no complaints. Vitals and labs unremarkable. Discharge antibiotics pending per ID. Case management consulted to coordinate dc medications with ID. 07/27 the patient has been seen and examined, no acute events overnight, hemodynamically stable, afebrile, saturating on room air. He is tolerating diet, denies nausea, no vomiting, had four episodes of loose stools yesterday. REVIEW OF SYSTEMS CONSTITUTIONAL: Admits having fever. Last temp of 104 F at home yesterday with shakiness. Denies chills, or night sweats. No unintentional weight loss reported. NEUROLOGICAL: Denies headache, amaurosis fugax, motor weakness, sensory deficit, vertigo/spinning sensation, gait abnormalities, or tremors. ENT: No hearing loss, otalgia, otorrhea, rhinitis, rhinorrhea, hoarseness, or sore throat. CARDIOVASCULAR: Denies any exertional angina, dyspnea on exertion, orthopnea, paroxysmal nocturnal dyspnea, palpitations, life-threatening arrhythmias, claudication. PULMONARY: Denies any shortness of breath, cough, phlegm/sputum, hemoptysis, pleuritic chest pain. SLEEP: Denies morning headaches, daytime somnolence or napping. Denies difficulty falling asleep, staying asleep, waking from sleep. Denies knowledge of snoring. GASTROINTESTINAL: reports having diarrhea GENITOURINARY: Denies frequency, urgency, nocturia, hematuria or incontinence (Storage/Irritative symptoms.) Low urinary stream, straining to void, urinary intermittency or hesitancy, splitting of the voiding stream, terminal dribbling. ENDOCRINOLOGIC: Denies polyuria, polydipsia, polyphagia or heat/cold intolerances. HEMATOLOGIC: Denies thrombophilia/previous clots, or coagulopathy/bleeding disorders. ONCOLOGIC: Denies personal history of malignancy. DERMATOLOGIC: Denies rashes or pruritus. PSYCHIATRIC: Denies any suicidal or homicidal ideation. Denies hallucinations. PHYSICAL EXAM GENERAL APPEARANCE: Patient appears ill and jaundiced. The patient is awake, alert, and oriented, in no acute cardiopulmonary distress. NEUROLOGICAL: Cranial nerves II-XII grossly intact. Motor is 5/5 in bilateral upper and lower extremities proximal to distal. No sensory deficits. HEENT: Positive for scleral icterus. Face is symmetric. Pupils are equal and reactive. Extraocular movements are intact. NECK: Supple. No JVD. No thyromegaly. No submental, submandibular, pre- /postauricular, occipital or supraclavicular lymphadenopathy. CHEST: Normal chest expansion. No Telemetry. LUNGS: Absence of any rales, rhonchi or any wheezing. CARDIOVASCULAR: Regular. S1 and S2 normal. No appreciable rubs, murmurs or gallops. ABDOMEN: Soft, nontender, and nondistended. There is no rebound, voluntary guarding, or rigidity. : Deferred. No Zambrano. EXTREMITIES: Non-edematous and not cyanotic. No clubbing. Good capillary refill. SKIN: No skin breakdown. Vital Signs (last 8hr) Date Time Temp Pulse Resp B/P (MAP) Pulse Ox O2 Delivery O2 Flow Rate FiO2 07/27/24 07:25 98.1 99 20 105/64 100 Room Air 21 07/27/24 04:00 99.0 82 20 110/64 96 Room Air LABS: Laboratory: Test 07/27/24 05:28 07/27/24 05:12 07/26/24 05:20 07/25/24 09:55 Range/Units Whole Blood Glucose 182 H 70-110 MG/DL White Blood Count 3.5 L 4.8-10.8 K/uL Red Blood Count 4.01 L 4.50-6.20 MIL/uL Hemoglobin 11.4 L 14.0-18.0 g/dL Hematocrit 35.6 L 42-54 % Mean Corpuscular Volume 88.8 79-99 fL Mean Corpuscular Hemoglobin 28.4 27.0-33.0 pg Mean Corpuscular Hemoglobin Concent 32.0 32.0-36.0 g/dL Red Cell Distribution Width 11.9 11.0-15.5 % Platelet Count 212 130-400 K/uL Mean Platelet Volume 11.1 H 7.5-10.5 fL Immature Granulocyte % (Auto) 0.3 0-1 % Neutrophils (%) (Auto) 37.8 L 40.0-77.0 % Lymphocytes (%) (Auto) 50.1 21.0-51.0 % Monocytes (%) (Auto) 9.2 3.0-13.0 % Eosinophils (%) (Auto) 2.0 0.0-8.0 % Basophils (%) (Auto) 0.6 0.0-5.0 % Neutrophils # (Auto) 1.3 L 1.8-7.7 K/uL Lymphocytes # (Auto) 1.7 1.0-4.8 K/uL Monocytes # (Auto) 0.3 0.1-1.0 K/uL Eosinophils # (Auto) 0.07 0.00-0.70 K/uL Basophils # (Auto) 0.02 0.00-0.20 K/uL Absolute Immature Granulocyte (auto 0.01 0-1 K/uL Nucleated Red Blood Cells 0.0 0.0-0.19 % Sodium Level 139 136-145 mmol/L Potassium Level 3.9 3.5-5.1 mmol/L Chloride Level 103 101-111 mmol/L Carbon Dioxide Level 31 21-32 mmol/L Blood Urea Nitrogen 11 7-18 mg/dL Creatinine 0.8 0.5-1.3 mg/dL Glomerular Filtration Rate Calc 111 >90 mL/min Random Glucose 181 H 70-105 mg/dL Total Calcium 8.5 8.5-10.1 mg/dL Phosphorus Level 3.6 2.5-4.9 mg/dL Magnesium Level 1.80 1.80-2.40 mg/dL C. difficile Antigen and Toxins A,B See comments NEG Current Medications Medications (Trade) Dose Ordered Sig/Christina Route PRN Reason Start Time Stop Time Status Last Admin Dose Admin Acetaminophen (TYLenol 500MG TAB) 500 mg Q6H PRN PO PAIN/FEVER 07/23/24 21:30 08/22/24 21:29 07/26/24 19:48 500 MG Ceftriaxone Sodium (Rocephin 2gm Inj) 2 gm Q24H IVPB 07/20/24 13:00 07/24/24 14:11 DC 07/24/24 12:20 2 GM Chlordiazepoxide HCl (LIBrium 25 MG CAP) 25 mg Q6H PRN PO ALCOHOL WITHDRAWAL PROTOCOL 07/20/24 13:30 07/26/24 16:12 DC 07/26/24 05:37 25 MG Doxycycline Hyclate 250 ml @ 125 mls/hr Q12H IV 07/20/24 13:00 07/30/24 12:59 07/27/24 00:20 125 MLS/HR Folic Acid (FOLic ACID 1 MG TABLET) 1 mg DAILY PO 07/21/24 09:00 07/23/24 09:01 DC 07/23/24 08:42 1 MG Insulin Human Regular (humuLIN R 100 UNIT/ML 3ML) INSULIN SLIDING SCAL... ACHS SQ 07/20/24 16:30 08/19/24 16:29 07/27/24 06:10 2 UNIT Lactobacillus Rhamnosus ([facility]) 1 each BID PO 07/24/24 21:00 08/23/24 20:59 07/27/24 09:17 1 EACH Lorazepam (AtiVAN) 1 mg Q4H PRN IVP ALCOHOL WITHDRAWAL PROTOCOL 07/20/24 13:30 07/26/24 16:12 DC 07/20/24 23:45 1 MG Magnesium Sulfate 50 ml @ 0 mls/hr PROTOCOL IV 07/24/24 07:30 08/23/24 07:29 07/25/24 06:30 25 MLS/HR Magnesium Sulfate 50 ml @ 0 mls/hr PROTOCOL IV 07/23/24 09:00 07/24/24 07:17 DC 07/24/24 06:15 25 MLS/HR Ondansetron HCl (zoFRAN 4MG INJ) 4 mg Q6H PRN IVP NAUSEA/VOMITING 07/20/24 13:30 07/20/24 13:17 DC Ondansetron HCl (zoFRAN 4MG INJ) 4 mg Q6H PRN IVP NAUSEA/VOMITING 07/20/24 13:30 08/19/24 13:29 Oseltamivir Phosphate (Tamiflu) 75 mg BID PO 07/24/24 21:00 07/29/24 20:59 07/27/24 09:18 75 MG Pantoprazole Sodium (PROTonix 40MG INJ) 40 mg Q12H IVP 07/20/24 13:30 08/19/24 13:29 07/27/24 00:20 40 MG Pharmacy Profile Note (Pharmacy Communication) 1 each PROTOCOL PRN MISC ETOH Withdrawal Score changes 07/20/24 13:30 07/27/24 13:29 Piperacillin Sod/ Tazobactam Sod (Zosyn 3.375gm+NS 50ml) 3.375 gm Q8H IVPB 07/24/24 19:30 08/03/24 19:29 07/27/24 02:51 3.375 GM Potassium Chloride 100 ml @ 100 mls/hr AD PRN IV POTASSIUM PROTOCOL 07/21/24 12:00 08/20/24 11:59 Potassium Chloride (K-Dur/Klor-Con 20meq) 20 meq AD PRN PO POTASSIUM PROTOCOL 07/21/24 12:00 08/20/24 11:59 07/23/24 08:42 20 MEQ Potassium Chloride (KCl 10% Elixir 20meq/15ml) 20 meq AD PRN PO POTASSIUM PROTOCOL 07/21/24 12:00 08/20/24 11:59 Sodium Chloride 1,000 ml @ 75 mls/hr [id number] IV 07/20/24 13:00 07/22/24 09:22 DC 07/22/24 01:33 75 MLS/HR Thiamine HCl (Vitamin B-1) 200 mg Q24H IVP 07/20/24 13:00 07/24/24 13:00 DC 07/24/24 12:20 200 MG DIAGNOSTICS / RADIOLOGY: [ ] ASSESSMENT: Severe acute hepatitis POA Acute gastroenteritis secondary to Vibriosis, POA Acute cholecystitis rule out Severe hyponatremia, hypochloremia POA Sepsis, POA, 2/2 acute cholecystitis vs infectious Gastroenteritis, POA Concern for ischemic Hepatitis, POA Elevated lactate POA Leukocytosis POA Thrombocytopenia, POA Hyperbilirubinemia POA Acute pancreatitis POA Hx of Chronic Alcoholism, POA Cocaine abuse Hypertension Type 2 diabetes mellitus Hyperlipidemia Hx of NSTEMI, in 2021, w/ Hx of PCI, POA Hx of Dual Antiplatelet therapy as outpatient, POA Overweight BMI 29.8 s/p bariatric surgery PLAN: Patient remains admitted to the medical floor Severe acute hepatitis POA r/o Acute vs Chronic Cholecystitis, POA r/o Vibriosis, POA Infectious gastroenteritis, POA Continue supportive care with IV fluids Continue to monitor liver enzymes as well as Acute hepatitis panel and HIV panel negative Stool studies positive for vibrio, continue antibiotics, continue to follow infectious disease input and recommendations. Antimitochondrial antibody pending. Replace electrolytes IV per protocol Normal HIDA scan. MRCP shows gallstones in the gallbladder with gallbladder wall thickening common duct dilatation suggestive of acute cholecystitis in the proper clinical setting. HIDA scan is unremarkable. Electrolyte imbalance; severe hyponatremia, hypochloremia POA Continue to monitor sodium level, follow Nephrology input and recommendations Elevated lactate POA Monitor lactic acid level Leukocytosis POA Thrombocytopenia, POA A.m. labs Hyperbilirubinemia POA Liver enzymes in a.m. Hx Chronic alcoholism Continue thiamine HCl 200 mg and folic acid 1 mg p.o. P.r.n. Librium 25 mg and Ativan 1 mg PRN added for alcohol withdrawal symptoms. Monitor for signs of alcohol withdrawal Hypertension Hx of CAD with prior Hx of NSTEMI in 2021 Continue to monitor adjust BP as needed Type 2 diabetes mellitus Monitor glucose a.c. and HS. Follow insulin sliding scale. Hyperglycemia and hypoglycemia protocol Disposition: Overall, the patient improved medically, possible discharge home today. We will discusse with Infectious Disease. Plan of action discussed with the patient, all questions answered, agreed and understood the information provided. GLORIA ALCALA MD Jul 27, 2024 09:25
--- NOTE | 2024-07-27 09:54 | PN ---
SUBJECTIVE: A 44-year-old male initially presented with acute renal failure. The patient with evidence of substance abuse. The patient also with positive influenza. The patient overall is feeling much improved. The patient's creatinine is much improved. Serum sodium also has stabilized and the patient is being seen as a followup visit for all the above. REVIEW OF SYSTEMS: GENERAL: He is feeling improved. HEENT: No change in vision. No change in hearing. CARDIOVASCULAR: There is no current chest pain or palpitations. PULMONARY: There is no shortness of breath. GASTROINTESTINAL: He is tolerating diet. MUSCULOSKELETAL: Complains of weakness. PHYSICAL EXAMINATION:. VITAL SIGNS: Blood pressure 105/64, pulse in the 90s. GENERAL: He is a chronically ill male, lying in bed on medical floor. HEENT: Head is atraumatic. Pupils equal, roving to light. Oropharynx is without exudate. Nares clear. NECK: There is no JVP. There is no thyromegaly, no mass. CARDIOVASCULAR: Regular. There is no S3, S4 gallop. LUNGS: Coarse with equal thoracic movement. ABDOMEN: Soft, nondistended, nontender. EXTREMITIES: Reveal no clubbing, no cyanosis. NEUROLOGIC: He is awake. He is alert. LABORATORY DATA: Sodium 139, potassium 3.9, BUN 11, creatinine 0.8. IMPRESSION: * Acute renal failure. * Hyponatremia. * Substance abuse. * Diabetes mellitus. PLAN: The patient's creatinine is much improved. The patient's LFTs have also improved. The patient's pulmonary symptoms have resolved. I did have a long discussion with the patient in regards to cessation of all substance abuse upon discharge. The patient can be discharged from a renal standpoint. If the patient is discharged, he can follow up in the [facility]. TID: [id number] RECEIPT: [id number]
[2024-07-27] MEDS: PoTASSium chloRIDE 20MEQ ER 20 MEQ ERTAB PO ONE (11:18)
[2024-07-27 11:20] VITALS: BP 113/74; PULSE 86; RESP 20; TEMP 97.4
--- NOTE | 2024-07-27 11:25 | PN ---
GASTROENTEROLOGY PROGRESS NOTE Date of Visit: Jul 27, 2024 Time of Visit: 11:24 Events / Notes: No acute events overnight. LFTs trending down. Review of Systems: CONSTITUTIONAL: No malaise or change in sensation of wellbeing. ENMT: No rhinorrhea, otorrhea, sinus pain, ear ache. CARDIOVASCULAR: No angina, palpitations, orthopnea or paroxysmal dyspnea. RESPIRATORY: No SOB. GASTROINTESTINAL: No abdominal pain, nausea, vomiting, diarrhea, hematemesis, melena or change in the patient's habitual bowel movements consistency/number. GENITOURINARY: No dysuria, hematuria or change in bladder continence. MUSCULOSKELETAL: No new muscle pain or decrease in muscular strength. No new joint swelling, redness or tenderness. SKIN: No new rash. Physical Exam: GEN: Awake, alert, oriented in person, time and place, and in no acute distress. HEENT: No sinus tenderness. Tympanic membranes were not examined. No rhinorrhea. Oral pharyngeal mucosa is pink, moist and within normal limits. Neck is supple with no cervical lymphadenopathy, thyromegaly or JVD. CHEST: Inspection, palpation and percussion of the chest were unremarkable. Lung auscultation revealed normal breath sounds bilaterally. CARDIAC: PMI is within normal limits. Heart sounds are regular. Normal S1, S2. No gallop or murmur. ABD: Soft, non-tender and not distended. No peritoneal signs on palpation. No organomegaly. Normal bowel sounds. EXT: No cyanosis or clubbing. No edema. SKIN: Intact. No rashes. JOINTS: No evidence of synovitis or acute arthritis. NEURO: Alert and oriented to name, place and person. Cranial nerve examination is unremarkable. No focal motor deficits. Normal speech. Gait is normal. Strength is normal. Vital Signs (last 8hr) Date Time Temp Pulse Resp B/P (MAP) Pulse Ox O2 Delivery O2 Flow Rate FiO2 07/27/24 08:00 100 Room Air* 0 21 07/27/24 07:25 98.1 99 20 105/64 100 Room Air 21 07/27/24 04:00 99.0 82 20 110/64 96 Room Air Laboratory: [ ] Laboratory: Test 07/27/24 11:03 07/27/24 05:12 07/26/24 05:20 Range/Units Whole Blood Glucose 192 H 70-110 MG/DL White Blood Count 3.5 L 4.8-10.8 K/uL Red Blood Count 4.01 L 4.50-6.20 MIL/uL Hemoglobin 11.4 L 14.0-18.0 g/dL Hematocrit 35.6 L 42-54 % Mean Corpuscular Volume 88.8 79-99 fL Mean Corpuscular Hemoglobin 28.4 27.0-33.0 pg Mean Corpuscular Hemoglobin Concent 32.0 32.0-36.0 g/dL Red Cell Distribution Width 11.9 11.0-15.5 % Platelet Count 212 130-400 K/uL Mean Platelet Volume 11.1 H 7.5-10.5 fL Immature Granulocyte % (Auto) 0.3 0-1 % Neutrophils (%) (Auto) 37.8 L 40.0-77.0 % Lymphocytes (%) (Auto) 50.1 21.0-51.0 % Monocytes (%) (Auto) 9.2 3.0-13.0 % Eosinophils (%) (Auto) 2.0 0.0-8.0 % Basophils (%) (Auto) 0.6 0.0-5.0 % Neutrophils # (Auto) 1.3 L 1.8-7.7 K/uL Lymphocytes # (Auto) 1.7 1.0-4.8 K/uL Monocytes # (Auto) 0.3 0.1-1.0 K/uL Eosinophils # (Auto) 0.07 0.00-0.70 K/uL Basophils # (Auto) 0.02 0.00-0.20 K/uL Absolute Immature Granulocyte (auto 0.01 0-1 K/uL Nucleated Red Blood Cells 0.0 0.0-0.19 % Sodium Level 139 136-145 mmol/L Potassium Level 3.9 3.5-5.1 mmol/L Chloride Level 103 101-111 mmol/L Carbon Dioxide Level 31 21-32 mmol/L Blood Urea Nitrogen 11 7-18 mg/dL Creatinine 0.8 0.5-1.3 mg/dL Glomerular Filtration Rate Calc 111 >90 mL/min Random Glucose 181 H 70-105 mg/dL Total Calcium 8.5 8.5-10.1 mg/dL Phosphorus Level 3.6 2.5-4.9 mg/dL Magnesium Level 1.80 1.80-2.40 mg/dL Current Medications Medications (Trade) Dose Ordered Sig/Christina Route PRN Reason Start Time Stop Time Status Last Admin Dose Admin Acetaminophen (TYLenol 500MG TAB) 500 mg Q6H PRN PO PAIN/FEVER 07/23/24 21:30 08/22/24 21:29 07/26/24 19:48 500 MG Ceftriaxone Sodium (Rocephin 2gm Inj) 2 gm Q24H IVPB 07/20/24 13:00 07/24/24 14:11 DC 07/24/24 12:20 2 GM Chlordiazepoxide HCl (LIBrium 25 MG CAP) 25 mg Q6H PRN PO ALCOHOL WITHDRAWAL PROTOCOL 07/20/24 13:30 07/26/24 16:12 DC 07/26/24 05:37 25 MG Doxycycline Hyclate 250 ml @ 125 mls/hr Q12H IV 07/20/24 13:00 07/30/24 12:59 07/27/24 00:20 125 MLS/HR Folic Acid (FOLic ACID 1 MG TABLET) 1 mg DAILY PO 07/21/24 09:00 07/23/24 09:01 DC 07/23/24 08:42 1 MG Insulin Glargine (LANtus 100 UNITS/ML 10 ML VIAL) 10 units HS SQ 07/27/24 21:00 08/26/24 20:59 Insulin Human Regular (humuLIN R 100 UNIT/ML 3ML) INSULIN SLIDING SCAL... ACHS SQ 07/20/24 16:30 08/19/24 16:29 07/27/24 11:16 2 UNIT Lactobacillus Rhamnosus ([facility]) 1 each BID PO 07/24/24 21:00 08/23/24 20:59 07/27/24 09:17 1 EACH Lorazepam (AtiVAN) 1 mg Q4H PRN IVP ALCOHOL WITHDRAWAL PROTOCOL 07/20/24 13:30 07/26/24 16:12 DC 07/20/24 23:45 1 MG Magnesium Sulfate 50 ml @ 0 mls/hr PROTOCOL IV 07/24/24 07:30 08/23/24 07:29 07/25/24 06:30 25 MLS/HR Magnesium Sulfate 50 ml @ 0 mls/hr PROTOCOL IV 07/23/24 09:00 07/24/24 07:17 DC 07/24/24 06:15 25 MLS/HR Ondansetron HCl (zoFRAN 4MG INJ) 4 mg Q6H PRN IVP NAUSEA/VOMITING 07/20/24 13:30 07/20/24 13:17 DC Ondansetron HCl (zoFRAN 4MG INJ) 4 mg Q6H PRN IVP NAUSEA/VOMITING 07/20/24 13:30 08/19/24 13:29 Oseltamivir Phosphate (Tamiflu) 75 mg BID PO 07/24/24 21:00 07/29/24 20:59 07/27/24 09:18 75 MG Pantoprazole Sodium (PROTonix 40MG INJ) 40 mg Q12H IVP 07/20/24 13:30 08/19/24 13:29 07/27/24 00:20 40 MG Pharmacy Profile Note (Pharmacy Communication) 1 each PROTOCOL PRN MISC ETOH Withdrawal Score changes 07/20/24 13:30 07/27/24 13:29 Piperacillin Sod/ Tazobactam Sod (Zosyn 3.375gm+NS 50ml) 3.375 gm Q8H IVPB 07/24/24 19:30 08/03/24 19:29 07/27/24 11:20 3.375 GM Potassium Chloride 100 ml @ 100 mls/hr AD PRN IV POTASSIUM PROTOCOL 07/21/24 12:00 08/20/24 11:59 Potassium Chloride (K-Dur/Klor-Con 20meq) 20 meq AD PRN PO POTASSIUM PROTOCOL 07/21/24 12:00 08/20/24 11:59 07/23/24 08:42 20 MEQ Potassium Chloride (KCl 10% Elixir 20meq/15ml) 20 meq AD PRN PO POTASSIUM PROTOCOL 07/21/24 12:00 08/20/24 11:59 Sodium Chloride 1,000 ml @ 75 mls/hr [id number] IV 07/20/24 13:00 07/22/24 09:22 DC 07/22/24 01:33 75 MLS/HR Thiamine HCl (Vitamin B-1) 200 mg Q24H IVP 07/20/24 13:00 07/24/24 13:00 DC 07/24/24 12:20 200 MG Diagnostics / Radiology: [COPY/PASTE HERE IF NO REPORTS PLEASE DELETE SECTION] Assessment: Abnormal lfts, likely related to ischemic hepatopathy from cocaine use vs viral process Thrombocytopenia, concerning for cirrhosis Splenomegaly Hyponatremia Plan: Await liver serologies Patient educated on abstinence and risk of acute liver failure Patient to f/u outpatient for cirrhosis management. LYUBOV GARCIA MARKET[employer] TRAFFIC MANAGER Jul 27, 2024 11:25
[2024-07-27] MEDS ORDERED: OSEL75 PO (12:31)
[2024-07-27] MEDS ORDERED: LACT1CAP79 PO (12:31)
[2024-07-27] MEDS ORDERED: INSLAN SQ (12:31)
[2024-07-27] MEDS ORDERED: INSU100V3 SQ (12:31)
--- NOTE | 2024-07-27 13:20 | DS ---
Discharge Summary Hospital Course Summary: The patient was initially admitted to the hospital on July 20, 2024 with the following history of the present illness: This is a 44-year-old male with a history of hypertension, hyperlipidemia, type 2 diabetes mellitus, chronic alcoholism and hx cocaine abuse and MA in 2011, NSTEMI in 2021 s/p PCI, history of obesity post bariatric surgery who presented to the ED with a chief complaint of fever and shakiness for last 6 days. Patient stated that he ate raw oysters on Halloween and the fever started after an hour. It was associated with generalized weakness, dizziness, lightheadedness and fatigue. He had a temperature of 104 F. Patient also complained of watery loose stools. Initially he had a black stools 4 days ago for 2 days. Patient reported having used cocaine 2 weeks ago. In the ED his vitals are temperature 99.1, pulse rate 127 which came down to 88, respiratory rate 16 blood pressure 98/66 and SpO2 99% on room air. In the ER labs were remarkable for WBC 11.7, hemoglobin 13.2, platelet count 73, sodium 119, potassium 3.6, chloride 83, lactic acid 3.8, random glucose 248, total bilirubin 5.9, direct bilirubin 4.7, triglycerides 229, AST 1184, ALT 1073, ALP 197 and lipase 2270. U/S abdominal right upper quadrant show gallstones and sludge material in the gallbladder. Borderline wall thickening is seen. Chest x-ray is unremarkable. CT abdomen and pelvis shows gallstones with gallbladder wall thickening may be related to acute cholecystitis. The patient was admitted for further evaluation medical management. Patient is started on supportive care with IV fluids as well as empiric antibiotics. Results of septic workup with stool positive for vibrio. Patient responded satisfactorily to medical management, diarrhea improved, liver enzymes returned almost back to normal. Today the patient is hemodynamically stable afebrile saturating normal on room air, we will like to be discharged home. He denies dizziness, no headache, no blurry vision, no chest pain, no shortness a breath, no nausea, no vomiting, tolerating diet. PHYSICAL EXAM GENERAL APPEARANCE: Patient appears ill and jaundiced. The patient is awake, alert, and oriented, in no acute cardiopulmonary distress. NEUROLOGICAL: Cranial nerves II-XII grossly intact. Motor is 5/5 in bilateral upper and lower extremities proximal to distal. No sensory deficits. HEENT: Positive for scleral icterus. Face is symmetric. Pupils are equal and r eactive. Extraocular movements are intact. NECK: Supple. No JVD. No thyromegaly. No submental, submandibular, pre- /postauricular, occipital or supraclavicular lymphadenopathy. CHEST: Normal chest expansion. No Telemetry. LUNGS: Absence of any rales, rhonchi or any wheezing. CARDIOVASCULAR: Regular. S1 and S2 normal. No appreciable rubs, murmurs or gallops. ABDOMEN: Soft, nontender, and nondistended. There is no rebound, voluntary guarding, or rigidity. : Deferred. No Zambrano. EXTREMITIES: Non-edematous and not cyanotic. No clubbing. Good capillary refill. SKIN: No skin breakdown. Infrastructure Architect(s): Infectious Disease Assessment/Plan: Final diagnosis Severe acute hepatitis POA Acute gastroenteritis secondary to Vibriosis, POA Acute cholecystitis rule out Severe hyponatremia, hypochloremia POA Sepsis, POA, 2/2 acute cholecystitis vs infectious Gastroenteritis, POA Concern for ischemic Hepatitis, POA Elevated lactate POA Leukocytosis POA Thrombocytopenia, POA Hyperbilirubinemia POA Acute pancreatitis POA Hx of Chronic Alcoholism, POA Cocaine abuse Hypertension Type 2 diabetes mellitus Hyperlipidemia Hx of NSTEMI, in 2021, w/ Hx of PCI, POA Hx of Dual Antiplatelet therapy as outpatient, POA Overweight BMI 29.8 s/p bariatric surgery Discharge Instructions: The patient to follow with primary care physician as an outpatient and to return to hospital if condition changes. Patient agreed with plan and understood the information provided. Home Medications: Active Scripts Mecobalamin (B12 Active) 1,000 Mcg Tab.chew, 1000 MCG PO DAILY, #90 TAB.CHEW 3 Refills Prov:VAL FELIZ MD 09/02/22 Atorvastatin Calcium (LIPITOR) 40 Mg Tablet, 40 MG PO HS for 90 Days, #90 TAB 3 Refills Prov:VAL FELIZ MD 09/02/22 Prasugrel HCl (Effient) 10 Mg Tablet, 10 MG PO DAILY for 90 Days, #90 TAB 3 Refills Prov:VAL FELIZ MD 09/02/22 Aspirin (Adult Low Dose Aspirin EC) 81 Mg Tablet.dr, 81 MG PO DAILY for 100 Days, #100 TAB 3 Refills Prov:VAL FELIZ MD 09/02/22 Metoprolol Succinate (Metoprolol Succinate) 50 Mg Tab.er.24h, 50 MG PO DAILY, #90 TAB 3 Refills Prov:VAL FELIZ MD 09/02/22 Lisinopril (Lisinopril) 20 Mg Tablet, 20 MG PO DAILY, #90 TAB 3 Refills Prov:VAL FELIZ MD 09/02/22 Reported Medications Metformin HCl (Metformin HCl) 1,000 Mg Tablet, 1000 MG PO BID, TAB 09/01/22 Time spent arranging discharge: 31-60 minutes GLORIA ALCALA MD Jul 27, 2024 13:20
--- NOTE | 2024-07-27 13:20 | PN ---
INFECTIOUS DISEASE PROGRESS NOTE Date of Service: Jul 27, 2024 SUBJECTIVE: This 44 year old male patient was seen and examined at bedside in room 313. Patient is awake, alert and oriented x 3. Highest temperature reported throughout the night is 99.9 and current temperature is 98.1. Patient is c urrently on Zosyn and doxycycline IV as well as on Tamiflu. Patient is being discharged today and prescription for Tamiflu was provided by admitting physician. PHYSICAL EXAM EYES: Anicteric. Pupils equal and reactive. HENT: No oral thrush seen, moist Oral mucosa NECK: Supple, no JVD or thyromegaly. LUNGS: Good air entry. No rales, no rhonchi. CARDIOVASCULAR: S1, S2 regular. No murmur heard. ABDOMEN: Soft, non tender, bowel sounds present, no organomegaly CENTRAL NERVOUS SYSTEM: Awake, alert, oriented x 3. No focal deficits. SKIN: No rashes, no swelling. LYMPHATICS: No peripheral lymphadenopathy MUSCULOSKELETAL: No joint swelling, erythema or tenderness. EXTREMITIES: No cyanosis or clubbing BACK: No deformity, no pressure ulcer. GENITOURINARY: No dysuria or hematuria Vital Sign (Last 12 Hours) 07/27/24 07/27/24 07/27/24 07/27/24 04:00 07:25 08:00 11:20 Temp 99.0 98.1 97.3 Pulse 82 99 86 Resp 20 20 20 B/P (MAP) 110/64 105/64 113/74 Pulse Ox 96 100 100 99 O2 Delivery Room Air Room Air Room Air* Room Air O2 Flow Rate 0 FiO2 21 21 21 Intake & Output (last 24hrs) 07/26/24 07/26/24 07/27/24 14:59 22:59 06:59 Intake Total 1200 ml 400 ml Balance 1200 ml 400 ml LABS: Laboratory: Test 07/27/24 11:03 07/27/24 05:12 07/26/24 05:20 Range/Units Whole Blood Glucose 192 H 70-110 MG/DL White Blood Count 3.5 L 4.8-10.8 K/uL Red Blood Count 4.01 L 4.50-6.20 MIL/uL Hemoglobin 11.4 L 14.0-18.0 g/dL Hematocrit 35.6 L 42-54 % Mean Corpuscular Volume 88.8 79-99 fL Mean Corpuscular Hemoglobin 28.4 27.0-33.0 pg Mean Corpuscular Hemoglobin Concent 32.0 32.0-36.0 g/dL Red Cell Distribution Width 11.9 11.0-15.5 % Platelet Count 212 130-400 K/uL Mean Platelet Volume 11.1 H 7.5-10.5 fL Immature Granulocyte % (Auto) 0.3 0-1 % Neutrophils (%) (Auto) 37.8 L 40.0-77.0 % Lymphocytes (%) (Auto) 50.1 21.0-51.0 % Monocytes (%) (Auto) 9.2 3.0-13.0 % Eosinophils (%) (Auto) 2.0 0.0-8.0 % Basophils (%) (Auto) 0.6 0.0-5.0 % Neutrophils # (Auto) 1.3 L 1.8-7.7 K/uL Lymphocytes # (Auto) 1.7 1.0-4.8 K/uL Monocytes # (Auto) 0.3 0.1-1.0 K/uL Eosinophils # (Auto) 0.07 0.00-0.70 K/uL Basophils # (Auto) 0.02 0.00-0.20 K/uL Absolute Immature Granulocyte (auto 0.01 0-1 K/uL Nucleated Red Blood Cells 0.0 0.0-0.19 % Sodium Level 139 136-145 mmol/L Potassium Level 3.9 3.5-5.1 mmol/L Chloride Level 103 101-111 mmol/L Carbon Dioxide Level 31 21-32 mmol/L Blood Urea Nitrogen 11 7-18 mg/dL Creatinine 0.8 0.5-1.3 mg/dL Glomerular Filtration Rate Calc 111 >90 mL/min Random Glucose 181 H 70-105 mg/dL Total Calcium 8.5 8.5-10.1 mg/dL Phosphorus Level 3.6 2.5-4.9 mg/dL Magnesium Level 1.80 1.80-2.40 mg/dL ASSESSMENT: Influenza viral infection type A. Cholelithiasis. Sepsis Leukocytosis resolved. Hyponatremia, resolved. Thrombocytopenia, resolved. Elevated liver enzymes, may be due to shock liver, s/p EUS. Diabetes mellitus. Chronic alcoholism. Substance abuse. PLAN: Patient is being discharged to home today. Prescription for Tamiflu was provided by the admitting physician. This case was reviewed and discussed with my supervising physician and the above assessment and plan was formulated and agreed upon. ATTESTATION BY PHYSICIAN I have seen and examined the patient. I reviewed the documentation, medical decision making, and treatment plan as noted by the mid-level provider above. I agree with the findings and plan of care. DAMI HUGGINS MD, [facility] Jul 27, 2024 13:20
[2024-07-27] MEDS ORDERED: INSULIN GLARgine 100 UNITS/ML 10 ML VIAL SQ SCH (21:00)
== END 2024-07-27 14:15 | disposition home or self-care (01) | DRG 871 ==
LOC: EDH 09:35 → EDHIP 12:50 → 2AH 07-21 00:20 → 3CH 07-23 00:15
PROVIDERS: ADMIT Internal Medicine; ATTEND Internal Medicine
PROC: 0DJ08ZZ Inspection of Upper Intestinal Tract, Via Natural or Artificial Opening Endoscopic (ICD-10-PCS; principal; 2024-07-21)
DX: A41.50 Gram-negative sepsis, unspecified (principal); K85.90 Acute pancreatitis without necrosis or infection, unspecified; E87.1 Hypo-osmolality and hyponatremia; E87.20 Acidosis, unspecified; B17.9 Acute viral hepatitis, unspecified; A09 Infectious gastroenteritis and colitis, unspecified; A28.9 Zoonotic bacterial disease, unspecified; N17.9 Acute kidney failure, unspecified; K80.00 Calculus of gallbladder with acute cholecystitis without obstruction; R65.20 Severe sepsis without septic shock; J10.1 Influenza due to other identified influenza virus with other respiratory manifestations; N18.9 Chronic kidney disease, unspecified; E87.8 Other disorders of electrolyte and fluid balance, not elsewhere classified; R16.2 Hepatomegaly with splenomegaly, not elsewhere classified; Z20.822 Contact with and (suspected) exposure to COVID-19; I12.9 Hypertensive chronic kidney disease with stage 1 through stage 4 chronic kidney disease, or unspecified chronic kidney disease; E66.9 Obesity, unspecified; D64.9 Anemia, unspecified; E11.22 Type 2 diabetes mellitus with diabetic chronic kidney disease; K74.60 Unspecified cirrhosis of liver; E78.00 Pure hypercholesterolemia, unspecified; D69.6 Thrombocytopenia, unspecified; F14.10 Cocaine abuse, uncomplicated; B96.89 Other specified bacterial agents as the cause of diseases classified elsewhere; R16.1 Splenomegaly, not elsewhere classified; Y90.9 Presence of alcohol in blood, level not specified; K83.8 Other specified diseases of biliary tract; F10.20 Alcohol dependence, uncomplicated; I25.10 Atherosclerotic heart disease of native coronary artery without angina pectoris; I25.2 Old myocardial infarction; Z68.30 Body mass index [BMI] 30.0-30.9, adult; Z98.84 Bariatric surgery status; Z83.3 Family history of diabetes mellitus; Z95.5 Presence of coronary angioplasty implant and graft; Z82.49 Family history of ischemic heart disease and other diseases of the circulatory system; Z79.4 Long term (current) use of insulin; Z79.02 Long term (current) use of antithrombotics/antiplatelets; Z79.84 Long term (current) use of oral hypoglycemic drugs; Z79.82 Long term (current) use of aspirin; Z79.899 Other long term (current) drug therapy; Z87.891 Personal history of nicotine dependence; Z51.5 Encounter for palliative care
CPT/HCPCS: 36415; 43237; 71045; 71250; 74177; 74181; 76705; 78226; 80048; 80053; 80074; 80076; 80305; 81001; 82140; 82150; 82270; 82390; 82550; 82570; 82728; 82948; 82977; 83036; 83605; 83690; 83735; 83930; 83935; 84100; 84132; 84145; 84300; 84443; 84478; 84484; 85025; 85027; 85610; 85730; 86038; 86140; 86215; 86235; 86376; 86381; 86701; 86708; 87040; 87046; 87086; 87324; 87390; 87426; 87507; 87804; 87880; 93005; 96365; A4606; A9537; G0378; J0696; J1815; J1885; J2060; J2470; J2543; J2704; J3411; J3475; J3490; J7030; Q9967; A4215; A4222; A4223; A4620; S8037

== ENCOUNTER 2025-05-05 20:29 | Emergency (ER) | payer OTHER ==
[~2025-05-05] VITALS: Ht 175.3 cm; Wt 86.2 kg
[~2025-05-05 20:29] MED LIST changes: +INSLAN SQ; +INSU100V3 SQ; +LACT1CAP79 PO; -LISI20TA24 PO; -METF-446 PO; -METO-391 PO; +OSEL75 PO; +PRAS10TA20 PO; -PRAS10TA6 PO
[2025-05-05 20:52] LABS: IMMATURE GRANULOCYTE ABSOLUTE 0.02 K/uL (0-1); NUCLEATED RED BLOOD CELLS 0.0 % (0.0-0.19); PLATELET COUNT (AUTO) 152 K/uL (130-400); RED BLOOD CELL COUNT(AUTO) 5.37 MIL/uL (4.50-6.20); RED CELL DISTRIBUTION WIDTH 13.2 % (11.0-15.5); WHITE BLOOD COUNT (AUTO) 8.0 K/uL (4.8-10.8)
[2025-05-05 21:00] LABS: CREATININE 0.7 mg/dL (0.5-1.3); GLOMERULAR FILTR. RATE CALC 114.0 mL/min (>90); GLUCOSE,RANDOM 221.0 mg/dL (70-105); SODIUM SERUM 136.0 mmol/L (136-145); UREA NITROGEN, BLOOD 10.0 mg/dL (7-18)
--- NOTE | 2025-05-05 21:01 | ERN ---
ED Note History of Present Illness Stated Complaint: ABD PAIN, N/V/ Chief Complaint: Abdominal Pain Time Seen by MD: 20:31 Dictation: This is a 45-year-old male who presented to the emergency room crying complaining of abdominal pain nausea vomitings for the past 2 days. 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 His abdominal pain is more like cramping located in the epigastric area and every time he vomited he said that he felt like a knot in the epigastric area. No hematemesis or melena he report diaphoresis but no documented fevers. His last cocaine binge was yesterday Denied any diarrhea He has had similar presentation in the past when he was diagnosed with biliary colic and cholelithiasis. Temperature 97.2 pulse 79 respirations 20 blood pressure 180/105 pulse oximetry of 100% on room air Chronic medical problems include diabetes mellitus, hypertension, hypercholesterolemia, coronary artery disease status post stents and PA 2 years ago. He also had bariatric surgery for weight loss Allergies: Coded Allergies: No Known Allergies (Unverified Allergy, Unknown, 08/31/22) Home Meds Active Scripts Oseltamivir Phosphate (Tamiflu) 75 Mg Cap, 75 MG PO BID for 2 Days, #4 CAP 0 Refills Prov:GLORIA ALCALA MD 07/27/24 Lactobacillus Rhamnosus GG (Culturelle) 15 Billion Cell Cap.sprink, 1 EACH PO BID for 7 Days, #14 CAP.SPRINK 0 Refills Prov:GLORIA ALCALA MD 07/27/24 Insulin Regular, Human (Humulin R) 100 Unit/Ml Vial, 0 UNIT SQ ACHS for 30 Days, #30 VIAL 1 Refill as directed Prov:GLORIA ALCALA MD 07/27/24 Insulin Glargine,Hum.rec.anlog (Lantus) 100 Unit/Ml Inj, 10 UNITS SQ HS for 30 Days, #60 ML 1 Refill Prov:GLORIA ALCALA MD 07/27/24 Mecobalamin (B12 Active) 1,000 Mcg Tab.chew, 1000 MCG PO DAILY, #90 TAB.CHEW 3 Refills Prov:VAL FELIZ MD 09/02/22 Atorvastatin Calcium (LIPITOR) 40 Mg Tablet, 40 MG PO HS for 90 Days, #90 TAB 3 Refills Prov:VAL FELIZ MD 09/02/22 Prasugrel HCl (Effient) 10 Mg Tablet, 10 MG PO DAILY for 90 Days, #90 TAB 3 Refills Prov:VAL FELIZ MD 09/02/22 Aspirin (Adult Low Dose Aspirin EC) 81 Mg Tablet.dr, 81 MG PO DAILY for 100 Days, #100 TAB 3 Refills Prov:VAL FELIZ MD 09/02/22 Past Medical History Past Medical History: CAD (Status post stents), Diabetes-Type II, High Cholesterol, Hypertension, PA, Other Additional Past Medical Hx: SEPSIS Surgical History: Other, Bariatric Surgery Surgical History Other: CARDIAC STENTS X 2 Family History: Negative Social History: Drugs (History of cocaine abuse), ETOH RN Note Reviewed/Agreed w/PFSH: Yes Review of System Dictation Constitutional: Negative for fever,chills, and weight loss Eyes: Negative for injury, pain,redness, and discharge ENT: Negative for injury,pain or swelling Cardiovascular: Negative for chest pain, palpitations, and edema Respiratory: Negative for shortness of breath, cough, and wheezing, Abdomen/GI: Positive for abdominal pain, nausea, vomiting, denies diarrhea, and constipation Back: Negative for injury and pain : Negative for injury, bleeding and discharge MS/Extremity: Negative for injury and deformity Skin: Negative for rash, and discoloration Neuro: Negative for headache, weakness, numbness, tingling, and seizure Psych: Negative for suicide ideation, homicidal ideation, and hallucinations Initial Vital Sign VS Vital Signs Date Time Temp Pulse Resp B/P (MAP) Pulse Ox O2 Delivery O2 Flow Rate FiO2 05/05/25 20:30 97.2 79 20 180/105 100 Room Air 05/05/25 20:38 0 21 Physical Exam Dictation General: awake, alert, NAD looks very comfortable during my evaluation Head/Face: Normocephalic, atraumatic Eyes: PERRL, EOMI, vision at baseline ENT: oral cavity clear, TMs clear, no signs of infection Neck: Trachea midline, supple, no nuchal rigidity Cardiovascular: RRR, normal S1/S2, No MRGs, no JVD Respiratory: CTAB, no respiratory distress, No rales or wheezes Abdomen: Soft, mild tenderness in the epigastrium r, non-distended, normal bowel sounds, no guarding or rebound. Skin: Warm, dry, normal turgor, no rash tattoos everywhere MS/Extremity: Pulses equal, no cyanosis, neurovascular intact, FROM Neuro: COAx4, GCS 15, strength 5/5, CN 2-12 intact, normal cerebellar exam, normal gait, Psych: Normal behavior, mood, and affect normal Extremities-trace edema without any palpable cords, Homans sign is negative Results (Laboratory/Radiology) Laboratory/Radiology Laboratory Tests Test 05/05/25 20:42 05/05/25 22:47 White Blood Count 8.0 K/uL (4.8-10.8) Red Blood Count 5.37 MIL/uL (4.50-6.20) Hemoglobin 14.2 g/dL (14.0-18.0) Hematocrit 44.3 % (42-54) Mean Corpuscular Volume 82.5 fL (79-99) Mean Corpuscular Hemoglobin 26.4 pg (27.0-33.0) L Mean Corpuscular Hemoglobin Concent 32.1 g/dL (32.0-36.0) Red Cell Distribution Width 13.2 % (11.0-15.5) Platelet Count 152 K/uL (130-400) Mean Platelet Volume 11.4 fL (7.5-10.5) H Immature Granulocyte % (Auto) 0.2 % (0-1) Neutrophils (%) (Auto) 72.1 % (40.0-77.0) Lymphocytes (%) (Auto) 18.7 % (21.0-51.0) L Monocytes (%) (Auto) 7.5 % (3.0-13.0) Eosinophils (%) (Auto) 1.0 % (0.0-8.0) Basophils (%) (Auto) 0.5 % (0.0-5.0) Neutrophils # (Auto) 5.8 K/uL (1.8-7.7) Lymphocytes # (Auto) 1.5 K/uL (1.0-4.8) Monocytes # (Auto) 0.6 K/uL (0.1-1.0) Eosinophils # (Auto) 0.08 K/uL (0.00-0.70) Basophils # (Auto) 0.04 K/uL (0.00-0.20) Absolute Immature Granulocyte (auto 0.02 K/uL (0-1) Nucleated Red Blood Cells 0.0 % (0.0-0.19) Sodium Level 136 mmol/L (136-145) Potassium Level 4.1 mmol/L (3.5-5.1) Chloride Level 101 mmol/L (101-111) Carbon Dioxide Level 32 mmol/L (21-32) Blood Urea Nitrogen 10 mg/dL (7-18) Creatinine 0.7 mg/dL (0.5-1.3) Glomerular Filtration Rate Calc 114 mL/min (>90) Random Glucose 221 mg/dL (70-105) H Total Calcium 9.0 mg/dL (8.5-10.1) Total Creatine Kinase 126 U/L (21-232) Troponin I High Sensitivity 39 ng/L (4-75) Lipase 70 U/L (16-77) Urine Color YELLOW (YELLOW) Urine Appearance CLEAR (CLEAR) Urine pH 6.5 (5.0-8.0) Urine Specific [place] 1.028 (1.001-1.031) Urine Protein NEGATIVE mg/dL (NEGATIVE) Urine Glucose (UA) 500 mg/dL (NEGATIVE) H Urine Ketones 5 mg/dL (NEGATIVE) H Urine Occult Blood NEGATIVE (NEGATIVE) Urine Nitrate NEGATIVE (NEGATIVE) Urine Bilirubin 0.5 mg/dL (NEGATIVE) H Urine Urobilinogen >=8.0 mg/dL (0.2-1.0) H Urine Leukocyte Esterase NEGATIVE [place]se/uL Urine RBC 0-1 /HPF (0-1) Urine WBC 0-1 /HPF (0-1) Urine Squamous Epithelial Cells RARE /HPF (0-2) Urine Bacteria None /HPF (None Seen) Urine Opiates Screen POSITIVE (NEGATIVE) H Urine Barbiturates Screen NEGATIVE (NEGATIVE) Urine Phencyclidine Screen NEGATIVE (NEGATIVE) Urine Amphetamines Screen NEGATIVE (NEGATIVE) Urine Benzodiazepines Screen NEGATIVE (NEGATIVE) Urine Cocaine Screen POSITIVE (NEGATIVE) H Urine Marijuana (THC) Screen NEGATIVE (NEGATIVE) Labs Reviewed?: Yes EKG Comment: Twelve lead EKG showed a heart rate of 72, RI interval 120, QRS 89, QT/QTC 382/419. Impression normal sinus rhythm with a repolarization changes in the anteroseptal leads. No deep ST depressions noted. EKG rhythm strip shows a normal sinus rhythm with nonspecific changes. Interpreted by ER MD Dr. Thopu CT Scan Comment: REASON: severe abdominal pain, N/V, h/o cholilthiasis ORDERING PHYSICIAN: CLOE CUNHA MD PROCEDURE: ABD PEL WO - CT ABDOMEN/PELVIS W/O CONTRAST EXAM: CT Abdomen and Pelvis without IV contrast. CLINICAL HISTORY: Severe abdominal pain. TECHNIQUE: Thin collimated axial CT images of the abdomen and pelvis were obtained, with sagittal and coronal reformatted images also submitted. A CT scan is done according to ALARA (As Low As Reasonably Achievable). CONTRAST: None COMPARISON: Prior CT abdomen and pelvis dated 20 July 2024. FINDINGS: Unremarkable visualized lung parenchyma. Scattered coronary artery calcifications. No focal abnormality within the liver, pancreas, spleen, adrenals, or kidneys. Mild splenomegaly. The gallbladder demonstrates multiple tiny 3-4 mm calculi in the gallbladder body. No wall thickening or features of cholecystitis. There is a punctate calcification around the distal CBD with mild dilated CBD and intrahepatic ducts, the CBD measures up to 12 mm in diameter. Post-gastric reduction surgery status. Mild hiatus hernia. Small omental fat containing umbilical hernia. There is no obvious bowel wall thickening. Bowel loops are normal in caliber without evidence of obstruction or ileus. The appendix is normal. There is no abnormality within the urinary bladder. Mild prostatomegaly. Seminal vesicles appear unremarkable. Abdominal and pelvic vessels were limited in evaluation due to a lack of intravenous contrast. No evidence of aneurysmal dilatation of the abdominal aorta. Scattered atherosclerotic calcification of the infrarenal aorta and bilateral common iliac arteries. No lymphadenopathy. No free fluid. There is no acute osseous abnormality. Mild disc bulges at the L3-L4 and L4-L5 levels and facet arthropathy. Minor degenerative changes in the sacroiliac and superolateral hip joint. IMPRESSIONS: Cholelithiasis and choledocholithiasis without acute cholecystitis or cholangitis. Recommend ultrasound of the gallbladder and MRCP for further evaluation. Mild hiatus hernia. The pancreas and appendix appear unremarkable. No evidence of renal or ureteric calculus. No free intraperitoneal air or ascites. Mild prostatomegaly. Mild splenomegaly. Compared to the prior study, there is an interval resolution of the previously noted gallbladder wall thickening and inflammation. /Reading DICTATED BY: RICKY GILLIAM Jr., MD DATE: 05/05/252351 ELECTRONICALLY SIGNED BY: RICKY GILLIAM Jr., MD DATE: 05/05/252351 ED Course ED Course Orders Procedure Category Date Status Time Vital Signs Per CPOE 05/05/25 Transmitted Routine 20:31 Saline Lock Iv CPOE 05/05/25 Transmitted 20:31 Cbc With Differential LAB 05/05/25 Complete 20:31 Lipase LAB 05/05/25 Complete 20:31 Basic Metabolic Panel LAB 05/05/25 Complete 20:31 12 Lead Ekg Tracing- EKG 05/05/25 Logged Technical 20:31 Troponin I High LAB 05/05/25 Complete Sensitivity 20:31 Morphine 4mg Syg PHA 05/05/25 Complete (Morphine 4mg Syg) 21:00 Ondansetron 4mg Inj PHA 05/05/25 Complete (Zofran 4mg Inj) 21:00 Creatine Kinase, Total LAB 05/05/25 Complete 20:42 Urinalysis Profile LAB 05/05/25 Complete 21:00 Drug Screen Urine LAB 05/05/25 Complete 21:00 Ct Abdomen/Pelvis W/O CT 05/05/25 Resulted Contrast 21:29 0.9%Nacl 1000ml (Ns PHA 05/05/25 Complete 1000ml) 21:30 Current Medications Medications (Trade) Dose Ordered Sig/Christina Route PRN Reason Start Time Stop Time Status Last Admin Dose Admin Morphine Sulfate (morPHINE 4MG SYG) 4 mg ONCE ONCE IVP 05/05/25 21:00 05/05/25 21:01 DC 05/05/25 20:58 Ondansetron HCl (zoFRAN 4MG INJ) 4 mg ONCE ONCE IVP 05/05/25 21:00 05/05/25 21:01 DC 05/05/25 20:57 Sodium Chloride 1,000 ml @ 0 mls/hr ONCE ONCE IV 05/05/25 21:30 05/05/25 21:32 DC 05/05/25 21:38 Vital Signs Date Time Temp Pulse Resp B/P (MAP) Pulse Ox O2 Delivery O2 Flow Rate FiO2 05/05/25 22:11 84 14 139/77 100 Room Air* 0 05/05/25 21:01 97.3 74 20 165/98 100 Room Air* 0 05/05/25 20:38 75 18 183/99 100 Room Air* 0 21 05/05/25 20:30 97.2 79 20 180/105 100 Room Air We will perform diagnostic labs, advanced imaging and administer medications according to the patient's complaint. Once the results are available, will review and personally interpreted the labs to rule out any acute life- threatening emergency the trach require immediate intervention and treatment. I will then re-evaluate the patient after treatment and diagnostic exams have return to determine whether the patient requires any further testing, can safely be discharged home or need further admission to hospital for additional treatment and evaluation. Labs reviewed CBC is with a normal limits BNP 7 is with a normal limits glucose is 221 lipase is [address] scan of the abdomen and pelvis shows improvement in the gallbladder wall thickening but there is evidence of cholelithiasis and choledocholithiasis. Also shows prostate enlargement and mild splenomegaly. No acute intra-abdominal catastrophe. 11:00 p.m. patient feels better and he will be discharged to home to follow up with his primary care physician Extensive counseling done on weight loss diet and exercise lifestyle modifications and alcohol abstinence and cocaine abstinence. I also explained the negative consequences of noncompliance including complications related to the recreational drugs and alcohol leading to and he verbalized full understanding Medical Decision Making MDM Differential diagnosis: Hiatal hernia, esophagitis, esophageal stricture, small-bowel obstruction, any complication related to his previous gastric bypass surgery, biliary colic, cholecystitis and cholangitis Rationale: Tests considered and ordered secondary to shared decision making include: Previous outside records reviewed: Old ER visits. Risk of complication and/or morbidity or mortality of patient management: None Medications-Per medication reconciliation Need for hospitalization: Patient does not meet criteria for hospitalization. Need for emergency major/minor surgery: No There are no social concerns with this patient. Prescription drug management Prescriptions will include symptomatic care Patient's prior external medical records from other ER visits were reviewed by me as indicated. Prior testing and results from previous visits were reviewed. Prior tests were taken into account with medical decision making and resource utilization, independent historian/historians were used to obtain complete medical history. I independently interpreted the test that were performed, results were reviewed by me and considered findings on radiology if ordered. Medical management and examination interpretation discussions were had by me with other qualified healthcare professionals as indicated for the patient's care. DX & DISP Disposition: Discharge Departure Impression: Primary Impression: Gastroenteritis Additional Impressions: Uncontrolled hypertension, Hx of bariatric surgery, Type 2 diabetes mellitus with hyperglycemia, Cocaine abuse, History of alcohol abuse, Cholelithiasis with choledocholithiasis Condition: Stable Additional Instructions: Patient and the caregiver have been informed of all the diagnostic tests and the imaging conducted during the today's visit to the emergency room and has verbalized understanding of the results I have personally reviewed and interpreted all diagnostic exams performed here in the ER today as well as the vital signs documented by the nursing staff. The patient is now being discharged to home and should follow up with the primary care physician or the specialist as directed by the ER staff. Follow-up with primary care provider in 1 to 2 days. Take medications as directed here in the emergency room. Okay to continue home medications unless otherwise discussed during your visit in the emergency room today. Return to your nearest emergency room if symptoms worsen or if there is no improvement. Call 911 if you need immediate assistance. Take Tylenol or Motrin [id number] as needed and if no contraindications are present. Increase oral hydration. A wound culture or urine culture was ordered here in the emergency room department please follow-up with primary care provider and advise them to get repeat ports from our facility. If you had any Jitendra wrap/splints that were applied here, please do not remove them until you see your primary care or specialty. Referrals: BERNADETTE CHIU (PCP) COLE CUNHA MD May 05, 2025 21:01
[2025-05-05 21:09] LABS: CREATINE KINASE, TOTAL 126.0 U/L (21-232)
[2025-05-05] MEDS: 0.9%NACL 1000ML 1,000 ML IV ONE (21:38)
--- NOTE | 2025-05-05 22:53 | HMCIMG ---
EXAM: CT Abdomen and Pelvis without IV contrast. CLINICAL HISTORY: Severe abdominal pain. TECHNIQUE: Thin collimated axial CT images of the abdomen and pelvis were obtained, with sagittal and coronal reformatted images also submitted. A CT scan is done according to ALARA (As Low As Reasonably Achievable). CONTRAST: None COMPARISON: Prior CT abdomen and pelvis dated 20 July 2024. FINDINGS: Unremarkable visualized lung parenchyma. Scattered coronary artery calcifications. No focal abnormality within the liver, pancreas, spleen, adrenals, or kidneys. Mild splenomegaly. The gallbladder demonstrates multiple tiny 3-4 mm calculi in the gallbladder body. No wall thickening or features of cholecystitis. There is a punctate calcification around the distal CBD with mild dilated CBD and intrahepatic ducts, the CBD measures up to 12 mm in diameter. Post-gastric reduction surgery status. Mild hiatus hernia. Small omental fat containing umbilical hernia. There is no obvious bowel wall thickening. Bowel loops are normal in caliber without evidence of obstruction or ileus. The appendix is normal. There is no abnormality within the urinary bladder. Mild prostatomegaly. Seminal vesicles appear unremarkable. Abdominal and pelvic vessels were limited in evaluation due to a lack of intravenous contrast. No evidence of aneurysmal dilatation of the abdominal aorta. Scattered atherosclerotic calcification of the infrarenal aorta and bilateral common iliac arteries. No lymphadenopathy. No free fluid. There is no acute osseous abnormality. Mild disc bulges at the L3-L4 and L4-L5 levels and facet arthropathy. Minor degenerative changes in the sacroiliac and superolateral hip joint. IMPRESSIONS: Cholelithiasis and choledocholithiasis without acute cholecystitis or cholangitis. Recommend ultrasound of the gallbladder and MRCP for further evaluation. Mild hiatus hernia. The pancreas and appendix appear unremarkable. No evidence of renal or ureteric calculus. No free intraperitoneal air or ascites. Mild prostatomegaly. Mild splenomegaly. Compared to the prior study, there is an interval resolution of the previously noted gallbladder wall thickening and inflammation. /[place]
[2025-05-05 22:58] LABS: APPEARANCE,URINE CLEAR (CLEAR); GLUCOSE, URINE (UA) 500 mg/dL (NEGATIVE); LEUKOCYTE ESTERASE ,URINE NEGATIVE Leu/uL (NEGATIVE); NITRATE,URINE NEGATIVE (NEGATIVE); OCCULT BLOOD,URINE NEGATIVE (NEGATIVE)
[2025-05-05 23:01] LABS: ADD UA MICROSCOPIC YES
[2025-05-05 23:03] LABS: SQUAMOUS EPITHELIAL CELL,UR RARE /HPF (0-2)
[2025-05-05 23:05] LABS: AMPHET/METH SCREEN,URINE NEGATIVE (NEGATIVE); BARBITURATE SCREEN, URINE NEGATIVE (NEGATIVE); CANNABINOID SCREEN,URINE NEGATIVE (NEGATIVE); COCAINE SCREEN,URINE POSITIVE (NEGATIVE)
--- NOTE | 2025-05-05 23:22 | NUR ---
TRIAGE EDIT TO REFLECT UDS RESULTS
[2025-05-05 23:26] VITALS: BP 136/74; PULSE 77; RESP 14; TEMP 97.6; O2SAT 99
--- NOTE | 2025-05-06 09:50 | EKG ---
[facility] Test Date: 2025-05-05 Test Time: 20:33:26 Pat Name: MAGALI STERLING Department: ED Room: Gender: M Registration Rep: [id number] 1980 Requested By: COLE CUNHA Order Number: [id number] Reading MD: Duong Jain Measurements Intervals [place] Rate: 72 P: -8 MA: 120 QRS: 14 QRSD: 89 T: 20 QT: 382 QTc: 419 Interpretive Statements Sinus rhythm ST elev, probable normal early repol pattern Compared to ECG 07/20/2024 13:16:42 ST (T wave) deviation now present Electronically Signed On 05-06-2025 12:08:24 CDT by Duong Jain Please click the below link to view image of tracing.
== END 2025-05-05 23:28 | disposition home or self-care (01) ==
LOC: EDH 20:29
DX: K52.9 Noninfective gastroenteritis and colitis, unspecified (principal); E11.65 Type 2 diabetes mellitus with hyperglycemia; I10 Essential (primary) hypertension; K80.50 Calculus of bile duct without cholangitis or cholecystitis without obstruction; F14.10 Cocaine abuse, uncomplicated; E78.00 Pure hypercholesterolemia, unspecified; R11.2 Nausea with vomiting, unspecified; I25.10 Atherosclerotic heart disease of native coronary artery without angina pectoris; I25.2 Old myocardial infarction; Z98.84 Bariatric surgery status; Z79.02 Long term (current) use of antithrombotics/antiplatelets; Z95.5 Presence of coronary angioplasty implant and graft; Z79.82 Long term (current) use of aspirin
CPT/HCPCS: 99285; 74176; 96374; 96361; 96375; 82550; 84484; 80048; 80305; 83690; 85025; 81001; 36415; 93005; J7030; J2405; J2270

== ENCOUNTER 2025-06-19 06:48 | Day surgery (SDC) | payer OTHER ==
[2025-06-15 11:57] VITALS: BP 150/91; PULSE 78; RESP 17; TEMP 98.3
[2025-06-15 11:59] LABS: IMMATURE GRANULOCYTE ABSOLUTE 0.01 K/uL (0-1); NUCLEATED RED BLOOD CELLS 0.0 % (0.0-0.19); PLATELET COUNT (AUTO) 146 K/uL (130-400); RED BLOOD CELL COUNT(AUTO) 5.32 MIL/uL (4.50-6.20); RED CELL DISTRIBUTION WIDTH 12.4 % (11.0-15.5); WHITE BLOOD COUNT (AUTO) 5.7 K/uL (4.8-10.8)
[2025-06-15 12:10] LABS: INR 1.0 (0.85-1.15)
[2025-06-15 12:12] LABS: CREATININE 0.8 mg/dL (0.5-1.3); GLOMERULAR FILTR. RATE CALC 110.0 mL/min (>90); GLUCOSE,RANDOM 364.0 mg/dL (70-105); SODIUM SERUM 134.0 mmol/L (136-145); UREA NITROGEN, BLOOD 11.0 mg/dL (7-18)
[~2025-06-19] VITALS: Ht 175.3 cm; Wt 87.0 kg
[2025-06-19] VITALS (18 sets, daily range): BP systolic 112–180; BP diastolic 72–113; PULSE 73–91; RESP 15–17; TEMP 97.5–97.7
[~2025-06-19 06:48] MED LIST changes: -ASPI-449 PO; -ATOR40TA69 PO; -INSLAN SQ; -INSU100V3 SQ; -LACT1CAP79 PO; -MECO10005 PO; -OSEL75 PO; -PRAS10TA20 PO; +PRAS10TA9 PO
[2025-06-19] MEDS: 0.9%NACL 1000ML 1,000 ML IV ONE (07:39)
[2025-06-19] MEDS: LACTATED RINGERS 1000ML 0 ML IV ONE (07:41)
[2025-06-19] MEDS ORDERED: INDOCYANINE GREEN 25 MG VIAL IJ ONE (07:46)
[2025-06-19] MEDS ORDERED: SUGAMMADEX SODIUM 200 MG/2 ML VIAL IV ONE (07:48)
[2025-06-19] MEDS ORDERED: MIDAZOLAM HCL 1 MG/ML 2ML VIAL ONE (07:57)
[2025-06-19] MEDS ORDERED: LIDOCAINE PF 100MG/5ML (2%) SYRINGE 5ML ONE (07:57)
[2025-06-19] MEDS ORDERED: SUCCINYLCHOLINE CHLORIDE 20 MG/ML 10 ML VIAL ONE (07:57)
--- NOTE | 2025-06-19 10:42 | OP ---
Operative Note: DATE OF PROCEDURE: 06/19/25 SURGEON: TUTU JORGE MD JITTERBUG OPERATOR: [] ANESTHESIA: [] General ANESTHESIOLOGIST/[employer]PHALT PLANT LABORER: [] PREOPERATIVE DIAGNOSIS: [] Cholecystitis POSTOPERATIVE DIAGNOSIS: [] The same SYNOPSIS: [] PROCEDURE: [] Robotic cholecystectomy ESTIMATED BLOOD LOSS: [] INDICATIONS: [] DESCRIPTION OF PROCEDURE: [] With the patient prepped and draped we did a supraumbilical incision. Using direct technique I placed a balloon trocar. Two da Gladys trochars were placed in each side of the abdomen under direct vision. A 5 mm trocar was placed in the right lateral side. I then went to the console and the robot was docked. I took all adhesions from the gallbladder and I started dissecting the triangle of [place]. we used firefly to identify the cystic duct and CBD.The cystic duct and the cystic artery were clearly identified and both were double clipped and divided. I took the gallbladder from below using cautery dissection. After the gallbladder was completely removed and adequate hemostasis was obtained I remove all the instruments from the abdomen. I undocked the robot and I came back to the bedside of the patient. I confirm hemostasis suction and irrigate and I placed the gallbladder in a bag. I injected 40 cc of Marcaine 0.25% as an abdominal tap block under direct vision. I injected 20 cc in each side of the abdomen. I took out all the trochars under direct vision and the gallbladder through the supraumbilical incision. I closed the fascia of the supraumbilical incision with a 0 Vicryl [id number]. All incisions were closed with 4-0 Monocryl and Steri-Strips. The patient was transferred stable to the recovery room. TUTU JORGE MD Jun 19, 2025 10:42
--- NOTE | 2025-06-19 11:40 | NUR ---
POST-OP RECOVERY 4 INCISIONS ACROSS LOW ANTERIOR ABDOMEN DERMABOND TO ALL 4 INCISIONS. NO REDNESS OR SWELLING NOTED, NO ACTIVE BLEEDING OR DRAINAGE NOTED. ALL 4 WOUNDS CLEAN DRY AND INTACT. REINFORCED THE IMPORTANCE OF NOT PICKING OR PULLING AT DERMABOND ON WOUNDS.
--- NOTE | 2025-06-19 12:10 | NUR ---
POST-RECOVERY REINFORCED INSTRUCTIONS AND THE IMPORTANCE OF NOT LIFTING ANYTHING HEAVY OR STRAINING OR EXCESSIVE BENDING OR SQUATTING. PATIENT ACKNOWLEDGED INSTRUCTIONS.
== END 2025-06-19 12:22 | disposition home or self-care (01) ==
LOC: DAH 06:48
PROVIDERS: ATTEND Surgery
DX: K80.12 Calculus of gallbladder with acute and chronic cholecystitis without obstruction (principal); I10 Essential (primary) hypertension; E11.9 Type 2 diabetes mellitus without complications; I25.2 Old myocardial infarction; G47.33 Obstructive sleep apnea (adult) (pediatric); Z90.89 Acquired absence of other organs; Z98.84 Bariatric surgery status; Z79.01 Long term (current) use of anticoagulants; Z79.899 Other long term (current) drug therapy
CPT/HCPCS: 80048; 85025; 85610; 85730; 36415; 47563; 88304; 82948 ×2; A6260; J1885; A4663; J7030 ×2; J3010 ×3; J3490 ×4; J1171; J1100; J0330; J0665 ×3; J2003; J0360; J2250; J2704; J2405; J2371; J0690 ×2; C1769; A4649; A4930 ×2; A4215; A4213; A4222; A4221; A4216; A4223 ×2; A4600; J7120